=== PATIENT | male | born 1960 | race African-American/Black ===

== ENCOUNTER 2023-12-08 13:00 | Outpatient (AMB) | payer MEDICAID, SELFPAY ==
--- NOTE | 2023-12-08 13:10 | MHC.OFFWIV ---
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 Intake Note: pt is here today for fell lower back pain started 12/06 Patient Tobacco Use Status: Never used Tobacco Allergies No Known Allergies Allergy (Verified 12/08/23 13:21) Do you need a note to return to daycare/school/sports/work: No HPI HPI Comments History of Present Illness Details Patient is a 63yo M who presents with L ankle and back pain post fall Fell on ice outside eatery No HT or LOC Occured on 12/06 States 05/08 lower back pain and L ankle pain since Pain in back is midline lower with radiation to Left lower and L gluteal region No radiation down leg No urine or bowel incontinence No abdominal pain, CP or SOB Has been taking ibuprofen and aleve today which helped He has hx of L ankle surgery and has had pain with ambulation Denies hardware in L ankle post surgery PFSH Social History Patient Tobacco Use Status: Never used Tobacco Review of Systems Const Denies fatigue, Denies headache(s) and Denies weakness ENT Denies dizziness and Denies headache(s) Card Denies chest pain, Denies syncope and Denies dyspnea Resp Denies cough and Denies dyspnea GI Denies abdominal pain, Denies constipation, Denies diarrhea and Denies other (denies incontinence) Denies difficulty urinating and Denies urinary incontinence Musc Reports abnormal gait, Reports back pain, Reports arthralgias and Denies tingling Skin/Breast Denies erythema and Denies rash Neuro Reports abnormal gait, Denies dizziness, Denies syncope, Denies headache(s), Denies focal weakness, Denies tingling, Denies paresthesias and Denies weakness Endo Denies fatigue Physical Exam Vital Signs: Last Vital Signs Temp 98.0 F 12/08/23 13:18 Pulse 82 12/08/23 13:18 BP 100/70 12/08/23 13:18 Pulse Ox 98 12/08/23 13:18 Oxygen Delivery Method Room Air 12/08/23 13:18 BMI result Body Mass Index 18.1 General: Non-toxic, NAD. Speaking full sentences. Skin: Warm dry throughout No extremity swelling No back ecchymosis or rash Respiratory: CTA bilaterally. No wheezes, rales or rhonchi Cardiac: RRR. No murmur MSK: No midline cervical or thoracic tenderness. + tenderness to midline lumbar and L lumbar paravertebral muscles. Negative bilateral SLR. Minimal tenderness to palpation L ankle medial aspect inferior to medial malleoli. Full ROM digits L foot. No L knee pain. Neurology: A/O x 3. No aphasia or facial droop. Psych: Good mood and affect Assessment & Plan Assessment & Plan (1) Fall: Code(s): W19.XXXA - Unspecified fall, initial encounter Qualifiers: Encounter type: initial encounter Qualified Code(s): W19.XXXA - Unspecified fall, initial encounter Plan: Patient seen and evaluated. Xray lumbar and L ankle ordered I viewed both as negative but the final result is pending. Muscle relaxant to pharmacy for patient; lethargy. No alcohol or driving under influence. Warm compress back. avoid heavy lifting Will be obtained around 3 PM due to no senior technical project manager available at this time. F/U with PCP no matter final xray result Patient gave verbal understanding and had no additional questions or concerns at time of discharge All questions answered Orders: Orders XR lumbar spine 2-3V Today W19.XXXA - Unspecified fall, initial encounter XR ankle LT min 3V Today W19.XXXA - Unspecified fall, initial encounter Medications: New methocarbamol 750 mg PO TID PRN 14 tabs 0RF muscle spasm Coding Level of Care Code Est Pt Level 3 (33565) Diagnoses Fall, initial encounter W19.XXXA Encounter type: initial encounter
[2023-12-08 13:18] VITALS: BP 100/70; PULSE 82; TEMP 36.7; O2SAT 98; BMI 18.1
== END 2023-12-08 13:46 | disposition home or self-care (01) ==
PROVIDERS: Visit Provider Physician Assistant
DX: M25.572 Pain in left ankle and joints of left foot (principal); M54.50 Low back pain, unspecified; W19.XXXA Unspecified fall, initial encounter
CPT/HCPCS: 99213

== ENCOUNTER 2023-12-08 15:14 | Outpatient (REF) | payer MEDICAID, SELFPAY ==
--- NOTE | ~2023-12-08 | XR_ITS ---
EXAMINATION: XR ANKLE, LEFT CLINICAL INFORMATION: Fall COMPARISON: None available. TECHNIQUE: AP, lateral, and mortise views of the left ankle. FINDINGS: Radiodense line through the body of the clavicle concerning for impaction fracture. Ankle mortise is preserved. Talar dome is intact. Medial and lateral malleoli are normal. XR/XR ankle LT min 3V IMPRESSION: * Radiodense line through the body of the clavicle concerning for impaction fracture. * This could be evaluated further with CT scan if clinically indicated.
--- NOTE | ~2023-12-08 | XR_ITS ---
EXAMINATION: XR LUMBAR SPINE CLINICAL INFORMATION: Reason for Exam W19.XXXA - Unspecified fall, initial encounter COMPARISON: None TECHNIQUE: Frontal lateral and coned-down L5-S1 frontal lateral, total of 3 views FINDINGS: Five [id number] lumbar vertebrae were identified maintaining normal height and alignments. Narrowing of intervertebral disc spaces suggest underlying degenerative disc disease. Incidental finding was made of excess amount of stool in the colon suggests possible constipation. Paravertebral soft tissues are unremarkable. There are radiolucencies, most likely superimposed bowel gas.. No radiographic evidence of osteolytic or osteoblastic lesions. XR/XR lumbar spine 2-3V IMPRESSION: * No fracture. * Narrowing of intervertebral disc spaces suggest underlying degenerative disc disease. Excess amount of stool in the colon suggests possible constipation.
== END 2023-12-08 15:15 | disposition home or self-care (01) ==
LOC: HO.HMGCX 15:14
PROVIDERS: Visit Provider Physician Assistant
DX: Z91.81 History of falling (principal)
CPT/HCPCS: 72100; 73610

== ENCOUNTER 2023-12-15 15:29 | Outpatient (AMB) | payer MEDICAID, SELFPAY ==
[2023-12-15 16:10] VITALS: BP 102/70; PULSE 72; TEMP 36.6; O2SAT 98; BMI 18.1
--- NOTE | 2023-12-15 16:10 | AM.OFFWIN_ITS ---
Intake Vital Signs 12/15/23 16:10 Height 5 ft 8 in Weight 119 lb BMI 18.1 BP 102/70 Blood Pressure Location Rt brachial Position Sitting Pulse 72 Pulse Source Pulse Oximeter Temp 97.8 F Temp Source Oral Pulse Oximetry (%) 98 Oxygen Delivery Method Room Air Intake Visit Reasons: EP lower back pain [id number] Intake Note: pt is here for c/o low back pain, states he is here for reevaluation regarding his back pain, pt completed medication that was given Patient Tobacco Use Status: Never used Tobacco Allergies No Known Allergies Allergy (Verified 12/08/23 13:21) HPI HPI Comments History of Present Illness Details This is a 63-year-old male with no stated past medical history presenting for re-evaluation of low back pain and left ankle pain that he has had since falling on ice on December 06, 2023. Patient states he was leaving a restaurant when he slipped on ice and fell onto his back. Patient had imaging performed on December 08, 2023 which revealed a normal lumbar series and a questionable calcaneus fracture of the left foot. Patient states he was unaware of this finding but continues to have discomfort in his left medial heel. Patient states his low back pain improved with the Robaxin however has not completely resolved. Patient denies any new injury or trauma following his fall on December 06. [facility] Social History Patient Tobacco Use Status: Never used Tobacco Review of Systems Const All systems reviewed & are unremarkable except as noted in HPI and below ENT Reports no additional complaints Card Reports no additional complaints Resp Reports no additional complaints Musc Reports back pain and Reports other (left posterior ankle pain) Skin/Breast Reports system reviewed and no additional complaints, except as documented Neuro Reports no additional complaints Psych Reports no additional complaints Physical Exam Vital Signs: Last Vital Signs Temp 97.8 F 12/15/23 16:10 Pulse 72 12/15/23 16:10 BP 102/70 12/15/23 16:10 Pulse Ox 98 12/15/23 16:10 Oxygen Delivery Method Room Air 12/15/23 16:10 BMI result Body Mass Index 18.1 Const General: cooperative, healthy appearing and comfortable Nutritional Appearance: underweight Orientation/consciousness: patient oriented x3 Limitations: ambulation with cane General: Yes no CVA tenderness Back/Spine/Pelvis Back: no CVA tenderness Thoracic/Lumbar Spine: thoracic and lumbar spine normal to inspection, thoraco- lumbar ROM normal (pt slow to flex, however ROM intact), straight leg raise negative bilaterally, No kyphosis and paraspinal muscle tenderness bilaterally in the lower lumbar Sacroiliac joints: bilaterally nontender Sacrum: no ecchymosis and no erythema Coccyx: no swelling and no tenderness Skin General skin exam: no rashes or lesions noted Lesions: no lesions Trauma: no lacerations or abrasions Neuro General: patient oriented x3 Extrem Left lower extremity: foot Details: normal to inspection, tenderness Location: of the calcaneus (left medial calcaneus) Details: with squeeze, toes with normal ROM, no edema and vascular exam Details: dorsalis pedis pulse present Psych Appearance: grossly normal Mental Status: mental status grossly normal Insight: Good insight present (Psych) Judgement: Good judgement present (Psych) Results Reviewed Results Reviewed: Imaging from 12.08.2023 is reviewed. Assessment & Plan Assessment & Plan (1) Calcaneus fracture, left: Comment: Following review of plain film imaging, CT imaging may be warranted. Patient will be referred to orthopedics for further evaluation. Code(s): S92.002A - Unspecified fracture of left calcaneus, initial encounter for closed fracture Qualifiers: Encounter type: subsequent encounter Calcaneus location: unspecified portion of calcaneus Fracture type: closed Fracture healing: with routine healing Plan: Orthopedic referral is placed. (2) Lumbar strain: Comment: Patient was initially given Robaxin only. Patient will be discharged with an anti-inflammatory in addition to further treatment with Robaxin. Code(s): S39.012A - Strain of muscle, fascia and tendon of lower back, initial encounter Qualifiers: Encounter type: subsequent encounter Qualified Code(s): S39.012D - Strain of muscle, fascia and tendon of lower back, subsequent encounter Plan: Naprosyn 500 mg b.i.d. times 10 days; Robaxin 750 mg t.i.d. 10 days. Patient is encouraged to follow up with his primary care provider to receive a physical therapy referral if his pain persists. Orders: Referrals Orthopedics Referral S92.002A - Unspecified fracture of left calcaneus, initial encounter for closed fracture Medications: New methocarbamol 750 mg PO Q8H 30 tabs 0RF naproxen (Naprosyn) 500 mg PO BID 20 tabs 0RF Coding Level of Care Code Est Pt Level 3 (56199) Diagnoses Calcaneus fracture, left S92.002A Encounter type: subsequent encounter Calcaneus location: unspecified portion of calcaneus Fracture type: closed Fracture healing: with routine healing Strain of lumbar region, subsequent encounter S39.012D Encounter type: subsequent encounter Time Spent (min) 35
== END 2023-12-15 17:37 | disposition home or self-care (01) ==
PROVIDERS: Visit Provider Physician Assistant
DX: S92.002A Unspecified fracture of left calcaneus, initial encounter for closed fracture (principal); S39.012D Strain of muscle, fascia and tendon of lower back, subsequent encounter
CPT/HCPCS: 99213

== ENCOUNTER 2023-12-20 08:21 | Outpatient (REF) | payer MEDICAID, SELFPAY ==
--- NOTE | ~2023-12-20 | XR_ITS ---
EXAMINATION: XR CALCANEUS, LEFT CLINICAL INFORMATION: Calcaneal fracture COMPARISON: 12/08/2023 TECHNIQUE: Lateral and axial views of the left calcaneus were obtained. FINDINGS: Oblique radiodense line through the body of the calcaneus is slightly less dense than on 12/08/2023 study. Alignment and articulations appear unchanged. XR/XR calcaneus LT min 2V IMPRESSION: No significant change fractured left calcaneus
== END 2023-12-20 08:22 | disposition home or self-care (01) ==
LOC: HO.HOSX 08:21
PROVIDERS: Visit Provider Physician Assistant
DX: S92.002A Unspecified fracture of left calcaneus, initial encounter for closed fracture (principal); W00.0XXA Fall on same level due to ice and snow, initial encounter; Y93.9 Activity, unspecified; Y92.9 Unspecified place or not applicable; Y99.9 Unspecified external cause status; Z79.899 Other long term (current) drug therapy
CPT/HCPCS: 73650; 99212

== ENCOUNTER 2023-12-20 11:17 | Outpatient (AMB) | payer MEDICAID, SELFPAY ==
--- NOTE | 2023-12-20 11:23 | A.OFFVIS_ITS ---
Intake Vital Signs 12/20/23 11:39 Height 5 ft 8 in Weight 119 lb BMI 18.1 Intake Visit Reasons: FC- left calcaneus fx Intake Note: Anamaria a 63 year old male presents today for an ER follow up of left calcaneous fx, DOI 12/06/23. Patient reports when he was leaving a restaurant it was dark when he slipped landing on his lower back. He was seen at [facility] walk in clinic where xrays were taken and referred to orthopedics. Currently he has complaints of bilateral ankle pain near his achilles that radiates up his leg. Hx of left ankle surgery due to ankle injury. Allergies codeine Allergy (Verified 12/20/23 11:34) Unknown duloxetine [From Cymbalta] Allergy (Verified 12/20/23 11:34) Unknown erythromycin base Allergy (Verified 12/20/23 11:34) Unknown gabapentin [From Neurontin] Allergy (Verified 12/20/23 11:34) Unknown Medication List - Last Reconciled 12/20/23 by Dallas Rivers PA-C docusate sodium (Colace) 100 mg PO DAILY methocarbamol 750 mg PO TID PRN methocarbamol 750 mg PO Q8H naproxen (Naprosyn) 500 mg PO BID HPI FC- left calcaneus fx HPI Details 63-year-old male who presents to the off ice today for an ER follow-up of left foot injury s/p leaving a restaurant at dark when he slipped and fell on his lower back on ice, 12/06/23. He was seen at walk-in clinic where x-rays were performed and he was referred to our office. He currently states he has pain at the Achilles of bilateral ankles which radiates up to his leg. He also reports he had swelling which has been improving He has a history of left ankle surgery in the past. 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 No tenderness through the body of calcaneus. No surrounding swelling or ecchymosis noted. NVI. Office Procedures Fracture Care Fracture Billing Code: Fracture Billing Code Results Reviewed Results Reviewed: X-rays of the left calcaneus obtained in the office today show a lucency through the volar aspect of calcaneus. No extension of joint. Assessment & Plan Assessment & Plan (1) Calcaneus fracture, left: Comment: Following review of plain film imaging, CT imaging may be warranted. Patient will be referred to orthopedics for further evaluation. Code(s): S92.002A - Unspecified fracture of left calcaneus, initial encounter for closed fracture Qualifiers: Calcaneus location: unspecified portion of calcaneus Encounter type: subsequent encounter Fracture healing: with routine healing Fracture type: closed Plan He was placed in a short boot and has been weight bearing as tolerated. He has no changes of x-rays which would show any potential of any fracture, so he can weight bear till the CT scan is complete. A CT scan of the left foot has been ordered to further evaluate the lusency of the calcaneus. He will see us back once the scan is complete. Orders: Orders XR calcaneus LT min 2V Today S92.002A - Unspecified fracture of left calcaneus, initial encounter for closed fracture CT foot LT wo IV con Today S92.002A - Unspecified fracture of left calcaneus, initial encounter for closed fracture Patient Instructions: Scribed for Dallas Rivers PA-C, by Ashish Maxwell medical record assistant, on 12/20/2023 at 11:00 AM EST. I, Dallas Rivers PA-C, have personally reviewed and agree with the information entered by the scribe. Coding Level of Care Code New Pt Level 3 (30278) Diagnoses Calcaneus fracture, left S92.002A Calcaneus location: unspecified portion of calcaneus Encounter type: subsequent encounter Fracture healing: with routine healing Fracture type: closed CPT Codes Fracture Care - Fracture Billing Code: Fracture Billing Code ([id number])
[2023-12-20 11:39] VITALS: BMI 18.1
== END 2023-12-20 12:18 | disposition home or self-care (01) ==
PROVIDERS: Visit Provider Physician Assistant
DX: S92.002A Unspecified fracture of left calcaneus, initial encounter for closed fracture (principal); W01.0XXA Fall on same level from slipping, tripping and stumbling without subsequent striking against object, initial encounter
CPT/HCPCS: 99203

== ENCOUNTER 2024-01-05 10:07 | Outpatient (AMB) | payer MEDICAID, SELFPAY ==
--- NOTE | 2024-01-05 10:13 | A.OFFVIS_ITS ---
Intake Vital Signs 01/05/24 10:18 Height 5 ft 8 in Weight 119 lb BMI 18.1 Intake Visit Reasons: Newprob-Right ankle pain Intake Note: Ekra a 63 year old male presents today for an evaluation of right ankle pain s/p slip and fall on ice when leaving a restaurant, DOI 12/06/23. Patient reports being seen for his left ankle however his right ankle has been causing him pain as well. Increased pain with extension of foot, states shooting pain starting at his achilles and radiates up his calf. Numbness with prolong standing. He feels at times his pain becomes unbearable. Allergies codeine Allergy (Verified 01/05/24 10:18) Unknown duloxetine [From Cymbalta] Allergy (Verified 01/05/24 10:18) Unknown erythromycin base Allergy (Verified 01/05/24 10:18) Unknown gabapentin [From Neurontin] Allergy (Verified 01/05/24 10:18) Unknown HPI Newprob-Right ankle pain HPI Details 63-year-old male who presents to the off ice today for evaluation of right ankle pain s/p slipping on ice when leaving a restaurant, 12/06/23. He states he has pain in his right ankle as well as left ankle which radiates from her Achilles till her calf. His pain is aggravated with leg extension and reports his pain occasional becomes unbearable. He also c/o numbness in his leg with prolonged standing. 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 No tenderness over the ankle or foot. He does have tenderness which extends from the perineal tendon to his calf. No palpable defect noted. He also has discomfort with plantar flexion and extension to the cap region. NVI. Assessment & Plan Assessment & Plan (1) Peroneal tendinitis, right leg: Code(s): M76.71 - Peroneal tendinitis, right leg Plan We discussed options which include PT, NSAIDs. The patient will proceed with PT and NSAIDs. If symptoms persist, the patient will contact me for further recommendations, otherwise, PRN. Orders: Orders PT Evaluation and Treatment Today M76.71 - Peroneal tendinitis, right leg Patient Instructions: Scribed for Dallas Rivers PA-C, by Ashish Maxwell medical transcription editor, on 01/05/2024 at 10:00 AM MELLISSA. Dallas Ku PA-C, have personally reviewed and agree with the information entered by the scribe. Coding Level of Care Code Est Pt Level 3 (53112) Diagnoses Peroneal tendinitis, right leg M76.71
[2024-01-05 10:18] VITALS: BMI 18.1
== END 2024-01-05 10:35 | disposition home or self-care (01) ==
PROVIDERS: Visit Provider Physician Assistant
DX: M76.71 Peroneal tendinitis, right leg (principal); W00.0XXA Fall on same level due to ice and snow, initial encounter
CPT/HCPCS: 99213

== ENCOUNTER 2024-01-05 10:07 | Outpatient (REF) | payer OTHER, SELFPAY ==
--- NOTE | ~2024-01-05 | XR_ITS ---
EXAMINATION: XR SACROILIAC JOINTS CLINICAL INFORMATION: Unspecified fall, initial encounter COMPARISON: None available. TECHNIQUE: 3 views of the sacroiliac joints FINDINGS: The bones are intact.. No fracture. Alignment is anatomic. Sacroiliac joint spaces are well-maintained without erosions or surrounding sclerosis. XR/XR sacroiliac joint min 3V IMPRESSION: No bony abnormality.
== END 2024-01-05 10:08 | disposition home or self-care (01) ==
LOC: HO.HOSX 10:07
PROVIDERS: Visit Provider Physician Assistant
DX: M76.71 Peroneal tendinitis, right leg (principal); W19.XXXA Unspecified fall, initial encounter
CPT/HCPCS: 72202; 99202; 99212

== ENCOUNTER 2024-01-05 10:36 | Outpatient (AMB) | payer OTHER, SELFPAY ==
--- NOTE | 2024-01-05 10:37 | MHC.OFFVIS ---
Intake Intake Visit Reasons: Newprob-lower back pain Intake Note: Anamaria a 63 year old male presents today for a evaluation for his lower back pain, DOI 12/06/23. Patient reports when he was leaving a restaurant it was dark when he slipped landing on his lower back. He was seen at [facility] walk in clinic. Patient states that his pain is a 6/10 on the pain scale, yet he states that his pain moves down to his right buttock. He was taking some pain medication that the walk in center prescribed him which gave him mild relief. Allergies codeine Allergy (Verified 01/05/24 10:18) Unknown duloxetine [From Cymbalta] Allergy (Verified 01/05/24 10:18) Unknown erythromycin base Allergy (Verified 01/05/24 10:18) Unknown gabapentin [From Neurontin] Allergy (Verified 01/05/24 10:18) Unknown HPI HPI Comments History of Present Illness Details 12/06/23 slipped on ice, landed on concrete on his back and left foot caught under. Left calcaneal fracture, seen by ortho today, on walking boot. Uses cane (old). Lumbar xray no visible fracture on my review. None reported per radiologist. Pain on middle going to left, SI area. Denied hip pain. Denied groin pain. Denies any numbness or weakness lower extremities. 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 Patient was appropriately conversant and oriented. Good historian. MSK: [No] specific abnormalities found on inspection of the spine and all extremities. [No pain with palpation over the lumbar area]. Tender on left SI joint, mildly tender in right SI joint. Lumbar ROM was [full]. [Bilateral hip, knee and ankle ROM WNL]. No ligamentous laxity or crepitance. [No increased effusion]. Straight-leg raising test [negative]. FABERE test [negative]. [Gillet test is negative]. Strength is [5/5 in all muscle groups tested]. [No increased tone noted]. Neurological: Neurologic examination of the upper and lower extremities was nonfocal with intact sensation, muscle stretch reflexes and without focal motor deficits [ ]. Singh?s [negative bilaterally]. Babinski was [down going bilaterally]. Clonus was [negative]. Gait is [non-]antalgic without loss of balance. Patient was [able] to perform heel walk and toe walk. Results Reviewed Results Reviewed: I independently reviewed the results of the following: Lumbar spine x-rays done 12/08/2023 did not show any fracture, disc spaces preserved. Sent back for pelvic/SI x-rays today no visible fractures on my review, SI joints are patent. Await final reading. I reviewed records from the following: Ortho PCP Assessment & Plan Assessment & Plan (1) Fall: Code(s): W19.XXXA - Unspecified fall, initial encounter Qualifiers: Encounter type: initial encounter Qualified Code(s): W19.XXXA - Unspecified fall, initial encounter Plan Patient's slipped on ice, without sustaining any lumbar fracture as seen on x-ray, presenting with SI joint pain. No neurologic findings on exam. We did send patient back for pelvic x-rays to be sure, await final reading. Recommend physical therapy. Referral has been placed by ortho. Assessment and plan discussed with patient, and patient was agreeable. All questions were answered thoroughly. Follow up 4-6 weeks. Afshan Borjas MD, JESS Board Certified, [place] [employer] and Rehabilitation (ABPMR) Board Certified, [place] [employer] Electro[employer] (ABEM) Coding Level of Care Code New Pt Level 4 (47545) Diagnoses Fall, initial encounter W19.XXXA Encounter type: initial encounter
== END 2024-01-05 11:39 | disposition home or self-care (01) ==
LOC: HO.HOS 10:36
PROVIDERS: Visit Provider Physical Medicine & Rehabilitation
DX: M54.50 Low back pain, unspecified (principal); W19.XXXA Unspecified fall, initial encounter
CPT/HCPCS: 99204

== ENCOUNTER 2024-01-24 07:42 | Outpatient (REF) | payer OTHER, SELFPAY ==
--- NOTE | ~2024-01-24 | CT_ITS ---
EXAMINATION: CT of the left foot without contrast INDICATION: Reason for Exam S92.002A - Unspecified fracture of left calcaneus, initial encounter for... Unspecified fracture of the left calcaneus COMPARISON: 12/20/2023 12/08/2023 TECHNIQUE: Multidetector volumetric imaging was obtained through the left foot without contrast material. Multiplanar reformatted images in coronal and sagittal orientations were submitted. This CT examination was performed using dose optimization techniques as appropriate, variously including the following: *Automated exposure control *Adjustment of mA and/or kV according to patient size (this includes techniques or standardized protocols for targeted exams where dose is matched to indication/reason for exam; i.e. 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 Tracks from 2 prior screws are present across the joint. There is solid osseous bridging across the calcaneal osteotomy site with 2 residual screw tracks. No acute osseous findings. Talocrural and subtalar joints appear well-preserved. Aside from the fused first TMT joint, the joints of the midfoot appear well-preserved. No erosions. Mild osteoarthritis at the metatarso-sesamoidal articulations of the first MTP joint. MTP and interphalangeal joints are otherwise unremarkable. No joint effusions. Intrinsic foot musculature is unremarkable. No appreciable tendon tears. Apparent thickening of the central band of the plantar fascia in the midfoot may be due to subcutaneous edema in this region. Plantar fibromatosis cannot be excluded. Plantar fascia is otherwise unremarkable. CT/CT foot LT wo IV con IMPRESSION: 1. Solid osseous bridging at the calcaneal osteotomy site. The healed margin of the osteotomy site likely corresponds to the suspected fracture on prior radiograph. No calcaneal fractures are identified. 2. Solid osseous fusion at the first TMT joint. 3. Minimal osteoarthritis at the first MTP joint.
== END 2024-01-24 07:43 | disposition home or self-care (01) ==
LOC: HO.CT 07:42
PROVIDERS: PCP Nurse Practitioner Primary Care; Visit Provider Physician Assistant
DX: S92.002A Unspecified fracture of left calcaneus, initial encounter for closed fracture (principal)
CPT/HCPCS: 73700

== ENCOUNTER 2024-01-24 13:00 | Outpatient (RCR) | payer OTHER, SELFPAY ==
--- NOTE | 2024-01-07 12:47 | MHC.PT.EP ---
[facility] [place] Office [place] Office [place] Office [address] [phone] F: [phone] F: [phone] F: [phone] F: [phone] Physical Therapy Plan of Care Date of Evaluation: 01/07/24 Date of Surgery: Diagnosis: Peroneal Tendinitis, Right Leg Assessment: Patient is a 63 year old R handed male who presents with s/s consistent with R peroneal tendinitis, R ankle pain. 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 Patient past medical history is unremarkable. Current impairments include pain, ROM, strength, activity tolerance and functional mobility. Functional limitations include decreased ability to walk, stand, squat, negotiate stairs, and perform standing or weight bearing activities. Patient is motivated with good rehab potential. Skilled PT will address impairments and functional limitations in order to achieve goals. Frequency and Duration: The patient will be seen 2x/week for 5 weeks Short Term Goals: I with HEP - 2 weeks AROM full and pain free - 3 weeks TTP absent - 3 weeks [facility] Goals: SLB 30 seconds and pain free - 5 weeks LEFS 56/80 - 5 weeks Return to PLOF - 5 weeks Treatment Plan: Modalities to reduce pain, spasms and effusion. Manual therapy to restore motion and function. Therapeutic exercise to improve strength and flexibility. Neuromuscular re-education for posture and balance. Therapeutic activities to return to functional activities of daily living. Electronically signed by: Ced Paulino, PT Please sign and return to therapist. Thank you for your referral.
--- NOTE | 2024-08-31 07:56 | MHC.PT.DC ---
[facility] [place] Office [place] Office [address] Radha Mojica [address] [phone] F: [phone] F: [phone] F: [phone] F: [phone] Physical Therapy Discharge Report Diagnosis: Peroneal Tendinitis, Right Leg Date of Surgery: Date of Evaluation: 01/07/24 Date of Discharge: 03/04/24 Treatments to Date: 4 Cancellations to Date: No Shows to Date: Discharge Status: Patient Elected to Stop Discharge Summary: 01/24/24: Pt came in with an x-ray and note that says to continue PT for SIJ. I educated him that our facility only works on one body part at a time and he needs to finish out his PT for his RLE to start. Pain is located throughout the R gastroc. He is unsure when he returns to ortho. Continued POC. He has one more appointment scheduled this week with me however I educated him that he should make another appointment with evaluating therapist to talk about POC however he is leaving the country for a month, maybe 2 months. I told him in that case his chart will be DC'd and he can resume PT with a new evaluation when he returns if he wishes. 01/12/24: pt progressing well with skilled PT. reduced s/s. tolerating band progression well. 01/10/24: progressed ROM and flex. no adverse reacitons. update HeP NV Patient is a 63 year old R handed male who presents with s/s consistent with R peroneal tendinitis, R ankle pain. 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 Patient past medical history is unremarkable. Current impairments include pain, ROM, strength, activity tolerance and functional mobility. Functional limitations include decreased ability to walk, stand, squat, negotiate stairs, and perform standing or weight bearing activities. Patient is motivated with good rehab potential. Skilled PT will address impairments and functional limitations in order to achieve goals. Electronically signed by: Ced Paulino, PT Please sign and return to therapist. Thank you for your referral.
== END 2024-08-31 07:56 | disposition home or self-care (01) ==
LOC: HO.PTCHIC 13:00
PROVIDERS: PCP Nurse Practitioner Primary Care; Visit Provider Physician Assistant
DX: M76.71 Peroneal tendinitis, right leg (principal)
CPT/HCPCS: 97110; 97112; 97161

== ENCOUNTER → 2024-01-24 15:41 | Outpatient (AMB) | payer OTHER, SELFPAY ==
--- NOTE | 2024-01-24 15:47 | MHC.PC.OV ---
Vital Signs 01/24/24 15:48 Height 5 ft 8 in Weight 124 lb 4 oz BMI 18.9 BP 126/84 Blood Pressure Location Lt brachial Position Sitting Pulse 84 Pulse Source Pulse Oximeter Pulse Oximetry (%) 99 Oxygen Delivery Method Room Air Intake Visit Reasons: [employer], req a PE Intake Note: Pt is [facility] care Pt had a colon screen in [place] Allergies codeine Allergy (Verified 01/24/24 16:03) Unknown duloxetine [From Cymbalta] Allergy (Verified 01/24/24 16:03) Unknown erythromycin base Allergy (Verified 01/24/24 16:03) Unknown gabapentin [From Neurontin] Allergy (Verified 01/24/24 16:03) Unknown Medication List - Last Reconciled 01/24/24 by AUTUMN Mathias prednisone 20 mg PO DAILY Tobacco use date assessed: 01/24/24 Dental Screening Dental Screen Date: 01/24/24 Did you have a dental visit in the last 12 months?: No Did you have a dental problem in the last 6 months where you did not have access to dental care?: No Was dental information given to patient?: No HPI HPI Comments History of Present Illness Details Patient is a 63-year-old male here to establish care. He has recently seen by physiatry and Ortho for SI joint pain and left ankle pain. He is currently in a left ankle walking boot. He was given a treatment plan of NSAIDs and physical therapy. He is due for his colonoscopy, will refer. Patient states that he has a primary concern of sinus tenderness, nasal discharge, headache. States he has a history of sinus infections and poorly controlled allergies. He was given prednisone 20 mg and fluticasone at a walk-in clinic. Will also prescribe Augmentin. 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 1. Little interest or pleasure in doing things: not at all 2. Feeling down, depressed, or hopeless: not at all 3. Trouble falling or staying asleep, or sleeping too much: not at all 4. Feeling tired or having little energy: not at all 5. Poor appetite or overeating: not at all 6. Feeling bad about yourself - or that you are a failure or have let yourself or your family down: not at all 7. Trouble concentrating on things, such as reading the newspaper or watching television: not at all 8. Moving or speaking so slowly that other people could have noticed. Or the opposite - being so fidgety or restless that you have been moving around a lot more than usual: not at all 9. Thoughts that you would be better off or of hurting yourself in some way: not at all Total score: 0 Depression Screening Interpretation: Negative Depression Screening Done: Yes 75061 - PHQ-9 Billing: Yes Source: Developed by Drs. Kevin Guzman, Naye Kessler, Yoseph Baxter and colleagues, with an educational cholo from [employer]. Thrive Questionnaire Date Thrive assessed: 01/24/24 I am a: Patient What is your living situation today?: I have a steady place to live Within the past 12 months, did the food you bought not last and you didn't have the money to get more?: Never true Within the past 12 months, did you worry whether your food would run out before you got money to buy more?: Never true Do you have trouble paying for medicines?: No Do you have trouble getting transportation to medical appointments?: No Do you have trouble paying your heating and electricity bill?: No Do you have trouble taking care of your child, family member or friend?: No Do you have trouble with day-to-day activities such as bathing, preparing meals, shopping, managing finances, etc.?: No Are you currently unemployed and looking for a job?: No Are you interested in more education?: No THRIVE Score: 0 AUDIT C Alcohol Use Questionnaire (AUDIT-C) 1. How often do you have a drink containing alcohol?: Never Total Score: 0 PATRICIA-7 AMB Questionnaire PATRICIA-7 Date PATRICIA - 7 assessed: 01/24/24 Feeling nervous, anxious, or on edge: 0 = Not at all Not being able to stop or control worryin = Not at all Worrying too much about different things: 0 = Not at all Trouble relaxin = Not at all Being so restless that it is hard to sit still: 0 = Not at all Becoming easily annoyed or irritable: 0 = Not at all Feeling afraid as if something awful might happen: 0 = Not at all Total PATRICIA-7 score (0-4 normal; 5-9 mild; 10-14 moderate; 15-21 severe): 0 Source: Developed by Drs. Kevin Guzman, Naye Kessler, Yoseph Baxter and colleagues, with an educational cholo from [employer]. PATRICIA-7 Assessment Billing PATRICIA-7 Assessment Tool: PATRICIA-7 Assessment 10269 Review of Systems Const Details: Constitutional : No Weight loss, No Fever, No Chills, No Fatigue, No Malaise ENT/Mouth : Admits sinus pain, nasal discharge. Eyes: No Eye Pain, No Swelling, No Redness Cardiovascular : No Chest Pain, No SOB, No Dyspnea on Exertion, No Orthopnea, No Edema, No Palpitations Respiratory : No Cough, No Sputum, No Wheezing Genitourinary : Admits Urinary Frequency. Musculoskeletal : Admits lower back pain. Left ankle pain. Skin : No Skin Lesions, No rash Neuro : No Weakness, Admits numbness with prolonged standing of right foot. No Dizziness, No Headache Psych : No Anxiety/Panic, No Depression All other systems reviewed and are negative Physical exam (Primary Care) Vital Signs: Last Vital Signs Pulse 84 01/24/24 15:48 BP 126/84 01/24/24 15:48 Pulse Ox 99 01/24/24 15:48 Oxygen Delivery Method Room Air 01/24/24 15:48 BMI result Body Mass Index 18.9 Tobacco/Smoking Status: Tobacco use Status Tobacco use date assessed 01/24/24 01/24/24 15:55 Patient Tobacco Use Status Never used Tobacco 01/24/24 15:48 PHQ-9: PHQ-9 Score PHQ-9: Total score 0 01/24/24 16:31 Depression Screening Interpretation: Negative Thrive Assessment: Date of Thrive Assessment Date Thrive assessed 01/24/24 01/24/24 16:03 Const Other: Appearance: Alert.? Oriented X3.? No acute distress.? Head: Normocephalic, atraumatic, Eyes: Pupils equal, round and reactive to light.? Neck: Normal inspection.? Neck supple.? CVS: Normal heart rate and rhythm.? Pulses normal.? Respiratory: No respiratory distress.? Breath sounds normal.? Extremities: No lower extremity edema.? No calf ttp. 5/5 strength to bilateral upper and lower extremities Back: No midline tenderness, no C-spine tenderness, full range of motion, no CVA tenderness bilaterally. SI joint tenderness. No obvious deformity. Neuro: Oriented X 3.? No motor deficit.? No sensory deficit. CN 2-12 intact Assessment and Plan Assessment & Plan (1) Sinusitis: Comment: Will prescribe patient Augmentin, in addition to the prednisone and fluticasone he was already prescribed. Patient has been educated on the side effects of this medication. Code(s): J32.9 - Chronic sinusitis, unspecified Qualifiers: Sinusitis location: other Chronicity: acute Recurrence: not specified as recurrent Qualified Code(s): J01.80 - Other acute sinusitis Plan: Take your medications as prescribed. If you were prescribed antibiotics today, it is important that you take your medication to their entirety, do not skip any doses, do not finish them early. Follow-up with your primary care provider this week. Return to the emergency department with new or worsening symptoms. Such as fevers, chills, chest pain, shortness of breath, nausea, vomiting, dizziness, headache, vision changes, lethargy In case of emergency call 911 (2) Sacroiliac joint dysfunction of both sides: Comment: Patient will be given meloxicam to be taken as directed. He will also be given Salonpas. Will also prescribe cyclobenzaprine to be taken at night p.r.n. Code(s): M53.3 - Sacrococcygeal disorders, not elsewhere classified (3) H/O urinary frequency: Comment: Patient states he has history of urinary frequency, was given oxybutynin the past. Will draw labs to evaluate prostate kidney disease. Will order UA. Will order A1c. Code(s): Z87.898 - Personal history of other specified conditions Plan Patient to follow-up with physical exam in 5 months Orders: Orders Comprehensive Met. Panel Today Z91.89 - Other specified personal risk factors, not elsewhere classified Complete Blood Count Auto Diff Today Z13.0 - Encounter for screening for diseases of the blood and blood-forming organs and certain disorders involving the immune mechanism Vitamin D 25-OH (D2 and D3) Today Z13.21 - Encounter for screening for nutritional disorder TSH reflex Free T4 Today Z13.29 - Encounter for screening for other suspected endocrine disorder Lipid Panel Today Z13.220 - Encounter for screening for lipoid disorders PSA,Total (Free>4and<10) Today Z12.5 - Encounter for screening for malignant neoplasm of prostate UA CC w/rflx Micro + Cult Today Z13.89 - Encounter for screening for other disorder Hemoglobin A1c Today Z13.1 - Encounter for screening for diabetes mellitus Referrals Gastroenterology Referral Z12.11 - Encounter for screening for malignant neoplasm of colon Medications: New cyclobenzaprine 5 mg PO BEDTIME PRN 14 tabs 0RF muscle spasm amoxicillin-pot clavulanate 875-125 mg 1 tab PO Q12H 14 tabs 0RF meloxicam 15 mg PO DAILY 20 tabs 0RF capsaicin 0.025% (Salonpas-Hot) do not leave patch on for more than 8 hrs 1 patch topical BID PRN 10 ea 0RF pain fluticasone propionate 50 mcg/actuation (Allergy Relief (fluticasone)) administer into each nostril 2 sprays intranasal DAILY 16 grams 0RF fluticasone propionate 50 mcg/actuation (Allergy Relief (fluticasone)) administer into each nostril 2 sprays intranasal DAILY 16 grams 3RF Coding Level of Care Code Est Pt Level 3 (45941) Diagnoses Other acute sinusitis, recurrence not specified J01.80 Sinusitis location: other Chronicity: acute Recurrence: not specified as recurrent Sacroiliac joint dysfunction of both sides M53.3 H/O urinary frequency Z87.898 Additional Codes PATRICIA-7 Assessment Billing - PATRICIA-7 Assessment Tool: PATRICIA-7 Assessment 21873 ([id number]) Time Spent (min) 40
[2024-01-24 15:48] VITALS: BP 126/84; PULSE 84; O2SAT 99; BMI 18.9
== END ==
PROVIDERS: Visit Provider Nurse Practitioner Primary Care
DX: J01.80 Other acute sinusitis (principal); M53.3 Sacrococcygeal disorders, not elsewhere classified; Z87.898 Personal history of other specified conditions
CPT/HCPCS: 99214

== ENCOUNTER 2024-01-25 07:12 | Outpatient (REF) | payer OTHER, SELFPAY ==
[2024-01-25 10:17] LABS: MANUAL DIFF FLAG NO
[2024-01-25 10:24] LABS: Appearance Urine Clear; Color Urine Yellow; Glucose Urine UA Negative (Negative); Leukocyte Esterase Urine Negative (Negative); Nitrite Urine Negative (Negative); PH 6.5 (5.0-9.0); Specific Gravity - Urine 1.015 (1.005-1.025); Urine Blood Negative (Negative); Urine Ketones Negative (Negative); Urine Protein Negative (Neg-Trace)
[2024-01-25 10:39] LABS: Basophils Percent Auto 0.4 % (0-2); Eosinophils Absolute Auto 0.1 X10*3/uL (0.0-0.4); Eosinophils Percent Auto 1.5 % (0-4); Hematocrit 39.8 % (42.0-52.0); Hemoglobin 13.7 g/dl (14.0-18.0); Imm Gran Abs Auto 0.01 X10*3/uL (0.00-0.03); Imm Gran Pct Auto 0.2 % (0.0-0.4); Lymphocytes Absolute Auto 1.1 X10*3/uL (1.2-4.9); Lymphocytes Percent Auto 19.5 % (20-40); Mean Corpuscular HGB Conc 34.4 g/dl (31.0-36.0); Mean Platelet Volume 11.2 fL (9.4-12.4); Monocytes Absolute Auto 0.8 X10*3/uL (0.1-1.2); Monocytes Percent Auto 14.4 % (2-11); Neutrophils Absolute Auto 3.5 x10*3/uL (2.0-8.3); Platelet Count 151 X10*3/uL (160-400); Red Blood Count 4.28 X10*6/uL (4.60-5.80); Red Cell Distribution Width 12.7 % (11.0-16.0); White Blood Count 5.5 X10*3/uL (4.8-10.8)
[2024-01-25 11:03] LABS: PSA,Total (Free>4and<10) 1.29 ng/mL (0.00-4.00)
[2024-01-25 11:04] LABS: Alanine Aminotransferase 19 U/L (0-40); Alkaline Phosphatase 67 U/L (39-117); Anion Gap 9 (12-20); Aspartate Amino Transferase 20 U/L (5-37); Bilirubin Total 0.7 mg/dL (0.0-1.0); Blood Urea Nitrogen 16 mg/dL (9-16); Carbon Dioxide 28 mmol/L (22-29); Chloride 108 mmol/L (96-108); Cholesterol 152 mg/dL (<200); Estimated Glomerular Filt Rate > 60; Glucose Random 89 mg/dL (60-115); HDL Cholesterol 48 mg/dL (>40); LDL Cholesterol Calculated 89 mg/dL (<100); Potassium 4.1 mmol/L (3.3-5.1); Sodium 141 mmol/L (135-145); Triglycerides 77 mg/dL (<150)
[2024-01-25 16:30] LABS: Estimated Average Glucose 77 mg/dL; Hemoglobin A1c % 4.3 % (<6.0)
[2024-01-29 15:49] LABS: Vitamin D 25-OH, D2 <4 ng/mL; Vitamin D 25-OH, D3 29 ng/mL; Vitamin D 25-OH, Total 29 ng/mL (30-100)
== END 2024-01-25 07:13 | disposition home or self-care (01) ==
LOC: HO.HMGCLDS 07:12
PROVIDERS: PCP Nurse Practitioner Primary Care; Visit Provider Nurse Practitioner Primary Care
DX: Z13.21 Encounter for screening for nutritional disorder (principal); Z13.29 Encounter for screening for other suspected endocrine disorder; Z13.0 Encounter for screening for diseases of the blood and blood-forming organs and certain disorders involving the immune mechanism; Z13.220 Encounter for screening for lipoid disorders; Z12.5 Encounter for screening for malignant neoplasm of prostate; Z13.89 Encounter for screening for other disorder; Z91.89 Other specified personal risk factors, not elsewhere classified
CPT/HCPCS: 36415; 80053; 80061; 81003; 82306; 83036; 84153; 84443; 85025

== ENCOUNTER 2024-06-16 13:59 | Outpatient (AMB) | payer OTHER, SELFPAY ==
[2024-06-16 14:02] VITALS: BP 119/69; PULSE 69; BMI 17.8
--- NOTE | 2024-06-16 14:02 | MHC.OFFVIS ---
Vital Signs 06/16/24 14:02 Height 5 ft 8 in Weight 116 lb 13.52 oz BMI 17.8 BP 119/69 Blood Pressure Location Lt brachial Position Sitting Pulse 69 Intake Visit Reasons: colonoscopy screening Intake Note: Anamaria presents to in office visit today as a new patient for colonoscopy screening. CC: Patient states that he had a procedure similar to colonoscopy done in [place] but does not remember the name of the procedure. He c/o constipation, gas pain, RUQ abdominal pain for about a year. He reports sometimes having like a sour mouth. Paper Rewinder Required: No Accompanied by: Daughter Allergies codeine Allergy (Verified 08/16/24 09:02) Unknown duloxetine [From Cymbalta] Allergy (Verified 08/16/24 09:02) Unknown erythromycin base Allergy (Verified 08/16/24 09:02) Unknown gabapentin [From Neurontin] Allergy (Verified 08/16/24 09:02) Unknown HPI HPI colonoscopy screening: Details: 64-year-old male here for preprocedural meeting to discuss a screening colonoscopy. He is referred by David Cruz. PMX Sacroiliac dysfunction bilateral Peroneal tendinitis Left calcaneus fracture * SURGICAL HISTORY Ankle surgery Trigger finger releases Varicocele surgery * ALLERGIES Codeine Cymbalta Erythromycin Gabapentin * for[MD] LABS: Laboratory Tests 01/25/24 07:35 WBC 5.5 Hgb 13.7 L Hct 39.8 L MCV 93.0 MCH 32.0 Plt Count 151 L Estimated GFR > 60 Total Bilirubin 0.7 AST 20 ALT 19 Alkaline Phosphatase 67 TSH 0.90 TODAY'S VISIT He is unsure if he had a prior colonoscopy when in the service in [place] - he did have an EGD. He has bowel problems, he will have gas trapping and pain in the right mid abdomen He denies any trouble with anes or sed. but his BP tends to run low. He denies any cardiac or resp problems. No ID problems. There is no known FHX of crc polyps. ROV 6 weeks. 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, Housing: House Patient Tobacco Use Status: Never used Tobacco service: No Current occupational status: employed 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 Cognitive needs: No Hearing needs: No Vision needs: No Review of Systems Const Denies fatigue, Denies fever(s), Denies night sweats, Denies poor appetite and Denies weight loss ENT Reports Normal hearing present, Denies dysphagia, Denies odynophagia, Denies throat swelling and Denies tongue swelling Card Reports no additional complaints Resp Reports no additional complaints GI Details: Denies abdominal pain, Denies melena, Denies bloating, Denies hematochezia, Reports constipation, Denies GI cramping, Denies dysphagia, Denies excessive flatus, Denies early satiety, Denies heartburn, Denies diarrhea, Denies nausea, Denies odynophagia, Denies vomiting and Denies hematemesis Skin/Breast Denies pruritus, Denies lesions, Denies rash and Denies jaundice Neuro Reports Normal hearing present and Denies Abnormal speech present Endo Denies fatigue Aller/Immun Denies throat swelling and Denies tongue swelling Physical Exam Vital Signs: Last Vital Signs Pulse 69 06/16/24 14:02 BP 119/69 06/16/24 14:02 BMI result Body Mass Index 17.8 Const General: cooperative, no acute distress, well developed and well groomed Nutritional Appearance: well nourished and thin Orientation/consciousness: oriented to person, oriented to place and oriented to time Limitations: No language barrier HEENT Head: Yes normocephalic and Yes atraumatic Eyes General: appearance normal, both eyes and all related structures Pupils: Equal, round and reactive pupils present Neck Neck: Yes normal visual inspection and Yes no lymphadenopathy Thyroid: Thyroid normal Resp Effort & Inspection: normal respiratory effort and able to speak in complete sentences Auscultation: clear to auscultation bilaterally Cardio Rate: regular rate Rhythm: regular rhythm Heart sounds: Normal, physiologic split S2 sound present Peripheral pulses: radial pulses present and posterior tibial pulses present GI Inspection: Yes distended (right mid) and No Abdominal panniculus present Palpation (GI): Soft to palpation, nontender, no guarding, not rigid and No hepatosplenomegaly present Percussion: Yes normal to percussion Auscultation: normal bowel sounds Rectal Exam - Male: Yes deferred Skin General skin exam: no rashes or lesions noted, turgor normal, skin not dry, no jaundice, No spider nevi and no striae Rashes: no rashes Nails: normal Neuro General: oriented to person, oriented to place and oriented to time Cranial nerves: Yes Equal, round and reactive pupils present and Yes Normal hearing present Speech: No Abnormal speech present Extrem General: Yes normal to inspection, No clubbing, No cyanosis and No edema Psych Appearance: grossly normal and well kempt Mental Status: mental status grossly normal Speech and movement: Normal speech and movement present Affect: normal affect Thought process: Normal thought process present and not confabulating Thought content: Normal thought content present Insight: Good insight present (Psych) Judgement: Good judgement present (Psych) Assessment & Plan Assessment & Plan (1) Chronic idiopathic constipation: Code(s): K59.04 - Chronic idiopathic constipation Category: Medical (2) Pre-op examination: Code(s): Z01.818 - Encounter for other preprocedural examination Category: Medical Plan He is unsure if he had a prior colonoscopy when in the service in [facility] - he did have an EGD. He has bowel problems, he will have gas trapping and pain in the right mid abdomen He denies any trouble with anes or sed. but his BP tends to run low. He denies any cardiac or resp problems. No ID problems. There is no known FHX of crc polyps. ROV 6 weeks. eval senna and consider simethicone/or creon Orders: Orders Colonoscopy - GI Use Only 06/16/24 Z01.818 - Encounter for other preprocedural examination Medications: New sodium,potassium,mag sulfates 17.5-3.13-1.6 gram (Suprep Bowel Prep Kit) 480 mL orally; FOR COLONOSCOPY PREP 354 mL 0RF sennosides-docusate sodium 8.6-50 mg (Senna Plus) 2 tab-caps (2 x 8.6-50 mg) PO BEDTIME 60 caps 3RF K59.04 - Chronic idiopathic constipation Coding Level of Care Code New Pt Level 3 (10894) Diagnoses Chronic idiopathic constipation K59.04 Pre-op examination Z01.818
== END 2024-06-16 14:49 | disposition home or self-care (01) ==
PROVIDERS: PCP Nurse Practitioner Primary Care; Visit Provider Nurse Practitioner
DX: K59.04 Chronic idiopathic constipation (principal); Z01.818 Encounter for other preprocedural examination
CPT/HCPCS: 99203

== ENCOUNTER → 2024-06-16 13:59 | Outpatient (BNVA) | payer OTHER, SELFPAY | PROVIDERS: PCP Nurse Practitioner Primary Care; Visit Provider Nurse Practitioner | DX: Z01.818 Encounter for other preprocedural examination (principal); K59.04 Chronic idiopathic constipation | CPT/HCPCS: 99202 ==

== ENCOUNTER 2024-06-26 09:09 | Outpatient (AMB) | payer OTHER, SELFPAY ==
--- NOTE | 2024-06-26 09:14 | A.OFFVIS_ITS ---
Intake Visit Reasons: history of urinary frequency Intake Note: Patient is present for history of urinary frequency Urology Medication:none Antibiotic Allergy:erthromycin Blood Thinner:none Biodiesel Production Technician Required: No Allergies codeine Allergy (Verified 06/26/24 09:17) Unknown duloxetine [From Cymbalta] Allergy (Verified 06/26/24 09:17) Unknown erythromycin base Allergy (Verified 06/26/24 09:17) Unknown gabapentin [From Neurontin] Allergy (Verified 06/26/24 09:17) Unknown Medication List - Last Reconciled 06/26/24 by Philip Dahl MD epinephrine 1 mg IM DAILY mirabegron ER (Myrbetriq) 25 mg PO DAILY naproxen 500 mg PO BID sennosides-docusate sodium 8.6-50 mg (Senna Plus) 2 tab-caps (2 x 8.6-50 mg) PO BEDTIME sodium,potassium,mag sulfates 17.5-3.13-1.6 gram (Suprep Bowel Prep Kit) 480 mL orally; FOR COLONOSCOPY PREP tamsulosin (Flomax) 0.4 mg PO BEDTIME HPI Comments Details: 06/26/24--Anamaria is a 64-year-old male who is here for evaluation due to urinary frequency and urgency. 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 The patient states that he he has had right-sided pain and some constipation. He was seen by GI also. He states he had an ultrasound done and was told that on the right side the ureters were dilated. I have discussed further evaluation with ultrasound retroperitoneum. Will empirically trial Myrbetriq 25 mg daily and tamsulosin 0.4 mg at bedtime. 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 Cognitive needs: No Hearing needs: No Vision needs: No Review of Systems Const All systems reviewed & are unremarkable except as noted in HPI and below Reports no additional complaints Eyes Reports no additional complaints ENT Reports no additional complaints Card Reports no additional complaints Resp Reports no additional complaints GI Reports no additional complaints Reports as per HPI Musc Reports no additional complaints Skin/Breast Reports system reviewed and no additional complaints, except as documented Neuro Reports no additional complaints Psych Reports no additional complaints Endo Reports no additional complaints Roberth/Lymph Reports no additional complaints Aller/Immun Reports no additional complaints Physical Exam Const General: healthy appearing, no acute distress and well developed Orientation/consciousness: patient oriented x3 HEENT Head: Yes normocephalic and Yes atraumatic Eyes Conjunctivae: conjunctivae normal Neck Neck: Yes normal visual inspection Chest Chest palpation & inspection: normal inspection of the chest Resp Effort & Inspection: normal respiratory effort Cardio Rate: regular rate GI Inspection: Yes normal to inspection Palpation (GI): Soft to palpation Skin General skin exam: no rashes or lesions noted Neuro General: patient oriented x3 Extrem General: No pedal edema Psych Appearance: grossly normal Affect: normal affect Results AMB Urinalysis, Automated UA Leukoctes 0 Precious/uL Last Edit by RAMSEY Concepcion on 06/26/24 09:31 UA Nitrite Negative Last Edit by RAMSEY Concepcion on 06/26/24 09:31 UA Urobilinogen 0.2 mg/dL Last Edit by RAMSEY Concepcion on 06/26/24 09:3 1 UA Protein 0 mg/dL Last Edit by RAMSEY Concepcion on 06/26/24 09:31 UA pH 6.5 Last Edit by RAMSEY Concepcion on 06/26/24 09:31 UA Blood 0 Onel/uL Last Edit by RAMSEY Concepcion on 06/26/24 09:31 UA Specific Frazer 1.015 Last Edit by RAMSEY Concepcion on 06/26/24 09: 31 UA Ketone Negative Last Edit by RAMSEY Concepcion on 06/26/24 09:31 UA Bilirubin 0 mg/dL Last Edit by RAMSEY Concepcion on 06/26/24 09:31 UA Glucose 0 mg/dL Last Edit by RAMSEY Concepcion on 06/26/24 09:31 Results Reviewed Results Reviewed: Laboratory Last Values Urine pH (Auto) 6.5 06/26/24 09:30 Specific Frazer (Auto) 1.015 06/26/24 09:30 Urine Protein (Auto) 0 mg/dL 06/26/24 09:30 Glucose (UA)(Auto) 0 mg/dL 06/26/24 09:30 Urine Ketones (Auto) Negative 06/26/24 09:30 Urine Blood (Auto) 0 Onel/uL 06/26/24 09:30 Urine Nitrite (Auto) Negative 06/26/24 09:30 Urine Bilirubin (Auto) 0 mg/dL 06/26/24 09:30 Urine Urobilinogen (Auto) 0.2 mg/dL 06/26/24 09:30 Leukocyte Esterase (Auto) 0 Precious/uL 06/26/24 09:30 Assessment & Plan Assessment & Plan (1) Urinary urgency: Code(s): R39.15 - Urgency of urination Category: Medical (2) Nocturia: Code(s): R35.1 - Nocturia Category: Medical (3) Hydronephrosis, right: Code(s): N13.30 - Unspecified hydronephrosis Category: Medical Plan Further evaluation with ultrasound retroperitoneum. Will empirically trial Myrbetriq 25 mg daily and tamsulosin 0.4 mg at bedtime Orders: Orders AMB Urinalysis Automated Today Z13.9 - Encounter for screening, unspecified US retroperitoneal comp Today N13.30 - Unspecified hydronephrosis, R35.1 - N octuria, R39.15 - Urgency of urination Medications: New tamsulosin (Flomax) 0.4 mg PO BEDTIME 90 caps 3RF mirabegron ER (Myrbetriq) 25 mg PO DAILY 90 tabs 3RF Patient Instructions: The patient had an opportunity to ask questions regarding treatment plan. The patient expressed understanding and agreement with the above treatment plan. The patient is aware they should contact our office by phone for worsening of their current condition or the appearance of new symptoms. Compliance is encouraged with any medications and followup testing that is ordered. It is a privilege to be allowed the opportunity to participate in the urologic care of your patient. If you have any questions or concerns regarding treatment for the above conditions please do not hesitate to contact me. The office telephone contact is [phone]. This note is constructed in part using voice recognition software. While every effort has been made to ensure accuracy ice cream freezer helper errors may have been included. Yours sincerely, Philip Dahl MD Coding Level of Care Code New Pt Level 4 (66339) Diagnoses Urinary urgency R39.15 Nocturia R35.1 Hydronephrosis, right N13.30
== END 2024-06-26 10:19 | disposition home or self-care (01) ==
PROVIDERS: PCP Nurse Practitioner Primary Care; Visit Provider Urology
DX: R39.15 Urgency of urination (principal); R35.1 Nocturia; N13.30 Unspecified hydronephrosis; Z13.9 Encounter for screening, unspecified
CPT/HCPCS: 99204

== ENCOUNTER → 2024-06-26 09:09 | Outpatient (BNVA) | payer OTHER, SELFPAY | PROVIDERS: PCP Nurse Practitioner Primary Care; Visit Provider Urology | DX: R39.15 Urgency of urination (principal); R35.1 Nocturia; N13.30 Unspecified hydronephrosis | CPT/HCPCS: 81003; 99202 ==

== ENCOUNTER 2024-06-29 16:11 | Outpatient (AMB) | payer OTHER, SELFPAY ==
[2024-06-29 16:16] VITALS: BP 122/74; PULSE 68; TEMP 36.6; O2SAT 98
--- NOTE | 2024-06-29 16:16 | AM.OFFWIN_ITS ---
Intake Vital Signs 06/29/24 16:16 Height 5 ft 8 in BP 122/74 Blood Pressure Location Lt brachial Position Sitting Pulse 68 Pulse Source Pulse Oximeter Temp 97.9 F Temp Source Temporal Artery Scan Pulse Oximetry (%) 98 Intake Visit Reasons: left pain foot due to hx of planter fas Intake Note: pt is here for left pain due to foot injury Patient Tobacco Use Status: Never used Tobacco Allergies codeine Allergy (Verified 06/29/24 16:17) Unknown duloxetine [From Cymbalta] Allergy (Verified 06/29/24 16:17) Unknown erythromycin base Allergy (Verified 06/29/24 16:17) Unknown gabapentin [From Neurontin] Allergy (Verified 06/29/24 16:17) Unknown Do you need a note to return to daycare/school/sports/work: No HPI HPI Comments History of Present Illness Details 64 y/o male patient who presents to the walk in clinic with c/o right ankle pain s/p slip and fall on ice when leaving a restaurant back on 12/06/23. He also reports pain on his left ankle as well. He prior h/o left calcaneous fx, which was surgically repaired in the past. Reports Increased pain with extension of foot, states shooting pain starting at his Achilles and radiates up his calf. Numbness with prolong standing. He feels at times his pain becomes unbearable. Pt saw Orthopedics who ordered PT. Pt was unable to complete sessions due to needing to travel to [facility] for work. 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 Cognitive needs: No Hearing needs: No Vision needs: No Review of Systems Const All systems reviewed & are unremarkable except as noted in HPI and below Physical Exam Vital Signs: Last Vital Signs Temp 97.9 F 06/29/24 16:16 Pulse 68 06/29/24 16:16 BP 122/74 06/29/24 16:16 Pulse Ox 98 06/29/24 16:16 Const General: comfortable and no acute distress Nutritional Appearance: thin Orientation/consciousness: patient oriented x3 Neuro General: patient oriented x3, gait normal and moves all extremities Extrem Right lower extremity: full ROM and ankle Details: tenderness Location: of the medial malleolus and of the achilles tendon, no edema and normal ROM; no swelling Left lower extremity: full ROM and ankle Details: tenderness Location: of the medial malleolus and of the achilles tendon, no edema and normal ROM; no swelling Psych Speech and movement: Normal speech and movement present Assessment & Plan Assessment & Plan (1) Peroneal tendinitis, right leg: Code(s): M76.71 - Peroneal tendinitis, right leg Plan: Placed a new referral for PT Continue on NSAIDs for pain relief. (2) Calcaneus fracture, left: Code(s): S92.002A - Unspecified fracture of left calcaneus, initial encounter for closed fracture Qualifiers: Encounter type: subsequent encounter Calcaneus location: unspecified portion of calcaneus Fracture type: closed Fracture healing: with routine healing Fracture alignment: nondisplaced Qualified Code(s): S92.002D - Unspecified fracture of left calcaneus, subsequent encounter for fracture with routine healing Plan: Placed a new referral for PT Continue on NSAIDs for pain relief. Plan Placed a new referral for PT Continue on NSAIDs for pain relief. Orders: Orders PT Evaluation and Treatment Today M76.71 - Peroneal tendinitis, right leg, S92.002D - Unspecified fracture of left calcaneus, subsequent encounter for fracture with routine healing Coding Level of Care Code Est Pt Level 3 (02258) Diagnoses Peroneal tendinitis, right leg M76.71 Closed nondisplaced fracture of left calcaneus with routine healing, unspecified portion of calcaneus, subsequent encounter S92.002D Encounter type: subsequent encounter Calcaneus location: unspecified portion of calcaneus Fracture type: closed Fracture healing: with routine healing Fracture alignment: nondisplaced Time Spent (min) 15
== END 2024-06-29 16:56 | disposition home or self-care (01) ==
PROVIDERS: PCP Nurse Practitioner Primary Care; Visit Provider Nurse Practitioner Family
DX: M76.71 Peroneal tendinitis, right leg (principal); S92.002D Unspecified fracture of left calcaneus, subsequent encounter for fracture with routine healing
CPT/HCPCS: 99213

== ENCOUNTER 2024-07-28 14:00 | Outpatient (AMB) | payer OTHER, SELFPAY ==
[2024-07-28 14:04] VITALS: BP 115/71; PULSE 82; BMI 18.5
--- NOTE | 2024-07-28 14:04 | A.OFFVIS_ITS ---
Vital Signs 07/28/24 14:04 Height 5 ft 8 in Weight 121 lb 11.123 oz BMI 18.5 BP 115/71 Blood Pressure Location Lt brachial Position Sitting Pulse 82 Intake Visit Reasons: 6 week follow up Intake Note: Ekra presents to in office follow up of [facility]IC. CC: Patient states that he is doing better from constipation after taking the Senna, but continues to have RUQ abd pain. Acetylene Gas Compressor Required: No Accompanied by: Self / Same As Patient Allergies codeine Allergy (Verified 08/22/24 09:23) Unknown duloxetine [From Cymbalta] Allergy (Verified 08/22/24 09:23) Unknown erythromycin base Allergy (Verified 08/22/24 09:23) Unknown gabapentin [From Neurontin] Allergy (Verified 08/22/24 09:23) Unknown HPI HPI 6 week follow up: Details: He is unsure if he had a prior colonoscopy when in the service in [place] - he did have an EGD. He has bowel problems, he will have gas trapping and pain in the right mid abdomen He denies any trouble with anes or sed. but his BP tends to run low. He denies any cardiac or resp problems. No ID problems. Nury is no known FHX of crc polyps. ROV 6 weeks. eval senna and consider simethicone/or creon Assessment & Plan (1) Chronic idiopathic constipation: Code(s): K59.04 - Chronic idiopathic constipation Category: Medical Orders: Orders Colonoscopy - GI Use Only Today Z01.818 - Encounter for other preprocedural examination Medications: New sodium,potassium,mag sulfates 17.5-3.13-1.6 gram (Suprep Bowel Prep Kit) 480 mL orally; FOR COLONOSCOPY PREP 354 mL 0RF sennosides-docusate sodium 8.6-50 mg (Senna Plus) 2 tab-caps (2 x 8.6-50 mg) PO BEDTIME 60 caps 3RF K59.04 - Chronic idiopathic constipation COLONOSCOPY 10/04/2024 BIOPSY TODAY'S VISIT He is having some relief with the RUQ pain with moving his bowels better with the senna/colace but some discomfort remains. Now I will add simethicone chew to his regimen before we decide on any further therapy. 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, Housing: House Patient Tobacco Use Status: Never used Tobacco service: No Current occupational status: employed 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 Cognitive needs: No Hearing needs: No Vision needs: No Review of Systems Const Denies fatigue, Denies fever(s), Denies night sweats, Denies poor appetite and Denies weight loss ENT Reports Normal hearing present, Denies dental pain, Denies dysphagia, Denies hearing loss, Denies mouth pain, Denies odynophagia, Denies throat swelling, Denies tongue swelling and Reports other (Dentition adequate) Card Reports no additional complaints Resp Reports no additional complaints GI Details: Denies abdominal pain, Denies melena, Reports bloating, Denies hematochezia, Reports constipation, Denies GI cramping, Denies dysphagia, Denies excessive flatus, Denies early satiety, Denies heartburn, Denies diarrhea, Denies nausea, Denies odynophagia, Denies vomiting and Denies hematemesis Skin/Breast Denies pruritus, Denies lesions, Denies rash and Denies jaundice Neuro Reports Normal hearing present and Denies Abnormal speech present Endo Denies fatigue Aller/Immun Denies throat swelling and Denies tongue swelling Physical Exam Vital Signs: Last Vital Signs Pulse 82 07/28/24 14:04 BP 115/71 07/28/24 14:04 BMI result Body Mass Index 18.5 Const General: cooperative, no acute distress, well developed and well groomed Nutritional Appearance: average body habitus and well nourished Orientation/consciousness: oriented to person, oriented to place and oriented to time Limitations: No language barrier HEENT Head: Yes normocephalic and Yes atraumatic Eyes General: appearance normal, both eyes and all related structures Pupils: Equal, round and reactive pupils present Neck Neck: Yes normal visual inspection and Yes no lymphadenopathy Thyroid: Thyroid normal Resp Effort & Inspection: normal respiratory effort and able to speak in complete sentences Auscultation: clear to auscultation bilaterally Cardio Rate: regular rate Rhythm: regular rhythm Heart sounds: Normal, physiologic split S2 sound present Peripheral pulses: radial pulses present and posterior tibial pulses present GI Inspection: No distended and No Abdominal panniculus present Palpation (GI): Soft to palpation, nontender, no guarding, not rigid and No hepatosplenomegaly present Percussion: Yes normal to percussion Auscultation: normal bowel sounds Rectal Exam - Male: Yes deferred Skin General skin exam: no rashes or lesions noted, turgor normal, skin not dry, no jaundice, No spider nevi and no striae Rashes: no rashes Nails: normal Neuro General: oriented to person, oriented to place and oriented to time Cranial nerves: Yes Equal, round and reactive pupils present and Yes Normal hearing present Speech: No Abnormal speech present Extrem General: Yes normal to inspection, No clubbing, No cyanosis and No edema Psych Appearance: grossly normal and well kempt Mental Status: mental status grossly normal Speech and movement: Normal speech and movement present Affect: normal affect Attitude: cooperative Thought process: Normal thought process present and not confabulating Thought content: Normal thought content present Insight: Fair insight present (Psych) Judgement: Fair judgement present (Psych) Assessment & Plan Assessment & Plan (1) Chronic idiopathic constipation: Code(s): K59.04 - Chronic idiopathic constipation Category: Medical Plan He is having some relief with the RUQ pain with moving his bowels better with the senna/colace but some discomfort remains. Now I will add simethicone chew to his regimen before we decide on any further therapy. Keep 09/30 apppt after colonoscopy Medications: New simethicone (Gas Relief (simethicone)) 125 mg PO QID PRN 120 tabs 6RF abdominal distention Coding Level of Care Code Est Pt Level 3 (00537) Diagnoses Chronic idiopathic constipation K59.04
== END 2024-07-28 14:31 | disposition home or self-care (01) ==
PROVIDERS: PCP Nurse Practitioner Primary Care; Visit Provider Nurse Practitioner
DX: K59.04 Chronic idiopathic constipation (principal)
CPT/HCPCS: 99213

== ENCOUNTER → 2024-07-28 14:00 | Outpatient (BNVA) | payer OTHER, SELFPAY | PROVIDERS: PCP Nurse Practitioner Primary Care; Visit Provider Nurse Practitioner | DX: K59.04 Chronic idiopathic constipation (principal) | CPT/HCPCS: 99212 ==

== ENCOUNTER 2024-08-16 09:00 | Outpatient (AMB) | payer OTHER, SELFPAY ==
[2024-08-16 09:02] VITALS: BP 110/70; PULSE 78; O2SAT 98; BMI 17.9
--- NOTE | 2024-08-16 09:02 | MHC.PC.OV ---
Vital Signs 08/16/24 09:02 Height 5 ft 8 in Weight 118 lb BMI 17.9 BP 110/70 Blood Pressure Location Lt brachial Position Sitting Pulse 78 Pulse Source Pulse Oximeter Pulse Oximetry (%) 98 Oxygen Delivery Method Room Air Intake Visit Reasons: Transfer from [facility] Allergies codeine Allergy (Verified 08/16/24 09:02) Unknown duloxetine [From Cymbalta] Allergy (Verified 08/16/24 09:02) Unknown erythromycin base Allergy (Verified 08/16/24 09:02) Unknown gabapentin [From Neurontin] Allergy (Verified 08/16/24 09:02) Unknown Medication List - Last Reconciled 08/16/24 by Ibis Reynoso MD epinephrine 1 mg IM DAILY fluticasone propionate 50 mcg/actuation sprays intranasal mirabegron ER (Myrbetriq) 25 mg PO DAILY naproxen 500 mg PO BID sennosides-docusate sodium 8.6-50 mg (Senna Plus) 2 tab-caps (2 x 8.6-50 mg) PO BEDTIME simethicone (Gas Relief (simethicone)) 125 mg PO QID PRN sodium,potassium,mag sulfates 17.5-3.13-1.6 gram (Suprep Bowel Prep Kit) 480 mL orally; FOR COLONOSCOPY PREP tamsulosin (Flomax) 0.4 mg PO BEDTIME Tobacco use date assessed: 08/16/24 Dental Screening Dental Screen Date: 08/16/24 Did you have a dental visit in the last 12 months?: Yes Did you have a dental problem in the last 6 months where you did not have access to dental care?: No Was dental information given to patient?: Patient has dentist HPI Transfer from [facility] HPI Details Patient presents for physical. He needs a referral for physical therapy for chronic left ankle pain after 3 surgeries the last 1 in 2020 in [place]. Patient is walking with a cane. Patient will have colonoscopy in September. 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 1. Little interest or pleasure in doing things: not at all 2. Feeling down, depressed, or hopeless: not at all 3. Trouble falling or staying asleep, or sleeping too much: not at all 4. Feeling tired or having little energy: not at all 5. Poor appetite or overeating: not at all 6. Feeling bad about yourself - or that you are a failure or have let yourself or your family down: not at all 7. Trouble concentrating on things, such as reading the newspaper or watching television: not at all 8. Moving or speaking so slowly that other people could have noticed. Or the opposite - being so fidgety or restless that you have been moving around a lot more than usual: not at all 9. Thoughts that you would be better off or of hurting yourself in some way: not at all Total score: 0 Depression Screening Interpretation: Negative Depression Screening Done: Yes 01532 - PHQ-9 Billing: Yes Source: Developed by Drs. Kevin Guzman, Naye Kessler, Yoseph Baxter and colleagues, with an educational cholo from [employer]. Thrive Questionnaire Date Thrive assessed: 08/16/24 I am a: Patient What is your living situation today?: I have a steady place to live Within the past 12 months, did the food you bought not last and you didn't have the money to get more?: Never true Within the past 12 months, did you worry whether your food would run out before you got money to buy more?: Never true Do you have trouble paying for medicines?: No Do you have trouble getting transportation to medical appointments?: No Do you have trouble paying your heating and electricity bill?: No Do you have trouble taking care of your child, family member or friend?: No Do you have trouble with day-to-day activities such as bathing, preparing meals, shopping, managing finances, etc.?: No Are you currently unemployed and looking for a job?: No Are you interested in more education?: Yes Please select the resources that you would like help with: None Currently or been in a relationship where the following occur: No concerns reported THRIVE Score: 0 AUDIT C Alcohol Use Questionnaire (AUDIT-C) 1. How often do you have a drink containing alcohol?: Never Total Score: 0 PATRICIA-7 AMB Questionnaire PATRICIA-7 Date PATRICIA - 7 assessed: 08/16/24 Feeling nervous, anxious, or on edge: 0 = Not at all Not being able to stop or control worryin = Not at all Worrying too much about different things: 0 = Not at all Trouble relaxin = Not at all Being so restless that it is hard to sit still: 0 = Not at all Becoming easily annoyed or irritable: 0 = Not at all Feeling afraid as if something awful might happen: 0 = Not at all Total PATRICIA-7 score (0-4 normal; 5-9 mild; 10-14 moderate; 15-21 severe): 0 Source: Developed by Drs. Kevin Guzman, Naye Kessler, Yoseph Baxter and colleagues, with an educational cholo from [employer]. PATRICIA-7 Assessment Billing PATRICIA-7 Assessment Tool: PATRICIA-7 Assessment 65105 Review of Systems Const All systems reviewed & are unremarkable except as noted in HPI and below ENT Reports no additional complaints Card Reports no additional complaints Resp Reports no additional complaints GI Reports no additional complaints Reports no additional complaints Physical exam (Primary Care) Vital Signs: Last Vital Signs Pulse 78 08/16/24 09:02 BP 110/70 08/16/24 09:02 Pulse Ox 98 08/16/24 09:02 Oxygen Delivery Method Room Air 08/16/24 09:02 BMI result Body Mass Index 17.9 Tobacco/Smoking Status: Tobacco use Status Tobacco use date assessed 08/16/24 08/16/24 09:04 Patient Tobacco Use Status Never used Tobacco 08/16/24 09:04 PHQ-9: PHQ-9 Score PHQ-9: Total score 0 08/16/24 09:12 Depression Screening Interpretation: Negative Thrive Assessment: Date of Thrive Assessment Date Thrive assessed 08/16/24 08/16/24 09:17 Currently or been in a relationship where the following occur: No concerns reported Const General: no acute distress HENMT Head: Yes normal to inspection Ears: hearing grossly normal bilaterally Mouth: Normal oral and palatal mucosa present Eyes General: appearance normal, both eyes and all related structures Neck Neck: Yes no lymphadenopathy and Yes supple Resp Effort & Inspection: normal respiratory effort Auscultation: clear to auscultation bilaterally Cardio Rhythm: regular rhythm Heart sounds: S1 normal heart sound present and S2 normal heart sound present GI Inspection: Yes normal to inspection Palpation (GI): Soft to palpation Percussion: Yes normal to percussion Auscultation: normal bowel sounds Assessment and Plan Assessment & Plan (1) Left ankle pain: Comment: s/p 3 surgeries in [place] last 2020 Code(s): M25.572 - Pain in left ankle and joints of left foot Plan: Referred to physical therapy (2) Annual physical exam: Code(s): Z00.00 - Encounter for general adult medical examination without abnormal findings Plan: Well-balanced diet regular physical activity discussed with the patient. He will have a screening colonoscopy in September, return for physical in 1 year with a fasting labs before Orders: Orders Lipid Panel 1 Year Z00.00 - Encounter for general adult medical examination without abnormal findings UA w Microscopic 1 Year Z00.00 - Encounter for general adult medical examination without abnormal findings PT Evaluation and Treatment Today M25.572 - Pain in left ankle and joints of left foot Comprehensive [place]. Panel Fast 1 Year Z00.00 - Encounter for general adult medical examination without abnormal findings Complete Blood Count Auto Diff 1 Year Z00.00 - Encounter for general adult medical examination without abnormal findings Coding Level of Care Code Est Pt Prev Care 40-64y(36717) Diagnoses Left ankle pain M25.572 Annual physical exam Z00.00 Additional Codes PATRICIA-7 Assessment Billing - PATRICIA-7 Assessment Tool: PATRICIA-7 Assessment 84328 ([id number])
== END 2024-08-16 10:07 | disposition home or self-care (01) ==
PROVIDERS: PCP Nurse Practitioner Primary Care; Visit Provider Internal Medicine
DX: M25.572 Pain in left ankle and joints of left foot (principal); Z00.00 Encounter for general adult medical examination without abnormal findings

== ENCOUNTER → 2024-08-16 09:00 | Outpatient (BNVA) | payer OTHER, SELFPAY | PROVIDERS: PCP Nurse Practitioner Primary Care; Visit Provider Internal Medicine | DX: Z00.00 Encounter for general adult medical examination without abnormal findings (principal); M25.572 Pain in left ankle and joints of left foot | CPT/HCPCS: 96127; 99396 ==

== ENCOUNTER 2024-08-22 08:52 | Outpatient (AMB) | payer OTHER, SELFPAY ==
[2024-08-22 09:23] VITALS: BP 112/70; PULSE 68; TEMP 36.6; O2SAT 98; BMI 18.2
--- NOTE | 2024-08-22 09:23 | AM.OFFWIN_ITS ---
Intake Vital Signs 08/22/24 09:23 Height 5 ft 8 in Weight 120 lb BMI 18.2 BP 112/70 Blood Pressure Location Rt brachial Position Sitting Pulse 68 Pulse Source Pulse Oximeter Temp 97.9 F Temp Source Oral Pulse Oximetry (%) 98 Oxygen Delivery Method Room Air Intake Visit Reasons: EP- mouth canker sore Intake Note: pt c/o painful canker sore in mouth. Started a week ago. Painful to eat Patient Tobacco Use Status: Never used Tobacco Allergies codeine Allergy (Verified 08/22/24 09:23) Unknown duloxetine [From Cymbalta] Allergy (Verified 08/22/24 09:23) Unknown erythromycin base Allergy (Verified 08/22/24 09:23) Unknown gabapentin [From Neurontin] Allergy (Verified 08/22/24 09:23) Unknown Do you need a note to return to daycare/school/sports/work: No HPI HPI Comments History of Present Illness Details Patient is a 64-year-old male complaining of a sore on the roof of his mouth that has been there for 1 week. He has been using a benzocaine liquid to try to numb it without much success. He states it is very painful to eat. He states he has never had a sore like this before. He also states he does not currently have a dentist. He is also complaining of tenderness in his lymph nodes in his neck, he denies fevers or night sweats. He states he has been taking Tylenol with no relief. Patient states he does not smoke cigarettes nor does he drink alcohol. 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 Cognitive needs: No Hearing needs: No Vision needs: No Review of Systems Const All systems reviewed & are unremarkable except as noted in HPI and below Physical Exam Vital Signs: Last Vital Signs Temp 97.9 F 08/22/24 09:23 Pulse 68 08/22/24 09:23 BP 112/70 08/22/24 09:23 Pulse Ox 98 08/22/24 09:23 Oxygen Delivery Method Room Air 08/22/24 09:23 BMI result Body Mass Index 18.2 Const General: cooperative, healthy appearing, comfortable and no acute distress Orientation/consciousness: patient oriented x3 Limitations: no limitations HEENT Head: Yes normal to inspection Face and sinus: Yes normal facial exam Mouth: Normal oral and palatal mucosa present, lip normal, tongue normal, oropharynx abnormals (roof of mouth, center, 0.75cm area of raised erythema, small scab &white ) and moist mucous membranes Throat: Yes tonsils normal and Yes uvula midline Eyes General: appearance normal, both eyes and all related structures Neck Neck: Yes normal visual inspection, Yes full ROM and Yes no lymphadenopathy Resp Effort & Inspection: normal respiratory effort and able to speak in complete sentences Skin General skin exam: no rashes or lesions noted Neuro General: patient oriented x3 Assessment & Plan Assessment & Plan (1) Lesion of mouth: Code(s): K13.70 - Unspecified lesions of oral mucosa Plan: Does not appear to be a canker sore, recommended he have a dentist look at it RAYMUNDO to evaluate the need for further workup. Concern for malignancy. Plan see above Coding Level of Care Code Est Pt Level 3 (91766) Diagnoses Lesion of mouth K13.70
== END 2024-08-22 11:35 | disposition home or self-care (01) ==
PROVIDERS: PCP Nurse Practitioner Primary Care; Visit Provider Physician Assistant
DX: K13.70 Unspecified lesions of oral mucosa (principal)

== ENCOUNTER → 2024-08-22 08:52 | Outpatient (BNVA) | payer OTHER, SELFPAY | PROVIDERS: PCP Nurse Practitioner Primary Care | DX: K13.70 Unspecified lesions of oral mucosa (principal) | CPT/HCPCS: 99212 ==

== ENCOUNTER 2024-08-24 12:55 | Outpatient (REF) | payer OTHER, SELFPAY ==
--- NOTE | ~2024-08-24 | US_ITS ---
EXAMINATION: US RETROPERITONEAL COMPLETE (RENAL) CLINICAL INFORMATION: Urgency of urination. Please measure prostate. COMPARISON: None available. TECHNIQUE: Real-time imaging of the kidneys and bladder. FINDINGS: RIGHT KIDNEY: 10.0 x 3.9 x 5.6 cm (SAG x AP x TRV). The kidney is normal in size, contour, and echogenicity. Renal cortical thickness is normal. No calculi or focal parenchymal lesions. No hydronephrosis. LEFT KIDNEY: 10.7 x 4.4 x 4.8 cm (SAG x AP x TRV). The kidney is normal in size, contour, and echogenicity. Renal cortical thickness is normal. No renal calculi. A 20 mm lower pole left renal cyst is present. There is also mild dilatation of the left collecting system in the left proximal ureter is dilated to 11 mm, though the cause and level obstruction is not visualized. BLADDER: Well distended. Bilateral ureteral jets are demonstrated. Prevoid bladder volume is 156 mL. Postvoid bladder volume is 11 mL. Enlarged prostate, measuring approximately 3.7 x 3.6 x 5 cm, corresponding to a volume of approximately 35 mL. US/US retroperitoneal comp IMPRESSION: 1. Mild left hydronephrosis and proximal left hydroureter, the cause and level of which is not visualized. Note that the left ureteral jet is visualized. This may be better assessed by CT urography as clinically warranted. 2. Mildly enlarged prostate gland. Electronically signed by: Ramon Salinas MD 09/06/2024 09:41 AM EDT
== END 2024-08-24 12:56 | disposition home or self-care (01) ==
LOC: HO.HMGCX 12:55
PROVIDERS: PCP Internal Medicine; Visit Provider Urology
DX: R39.15 Urgency of urination (principal); R35.1 Nocturia; N13.30 Unspecified hydronephrosis
CPT/HCPCS: 76770

== ENCOUNTER 2024-09-06 13:06 | Outpatient (AMB) | payer OTHER, SELFPAY ==
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
== END 2024-09-06 13:46 | disposition home or self-care (01) ==
LOC: HO.HUSH 13:06
PROVIDERS: PCP Internal Medicine; Visit Provider Urology
DX: R39.15 Urgency of urination (principal); R35.1 Nocturia
CPT/HCPCS: 99213

== ENCOUNTER → 2024-09-06 13:06 | Outpatient (BNVA) | payer OTHER, SELFPAY | PROVIDERS: PCP Internal Medicine; Visit Provider Urology ==

== ENCOUNTER 2024-10-04 10:58 | Day surgery (SDC) | payer OTHER, SELFPAY ==
--- NOTE | 2024-10-03 13:03 | HO.ANESPROP2 ---
Documented by User: Sarah Marie NP 10/03/24 13:04 HPI - Anesthesia Eval Consult details Narrative: 64yo M for Colonoscopy PMFSH Active Problems Active Problems: All Active Problems Screening PSA (prostate specific antigen) (Acute) Lesion of mouth (Acute) Left ankle pain (Acute) Hydronephrosis, right (Acute) Nocturia (Acute) Urinary urgency (Acute) Chronic idiopathic constipation (Acute) Pre-op examination (Acute) H/O urinary frequency (Acute) Sacroiliac joint dysfunction of both sides (Acute) Peroneal tendinitis, right leg (Acute) Past Medical History Medical History Annual physical exam Sinusitis Lumbar strain Calcaneus fracture, left Fall Sacroiliac joint dysfunction of both sides Surgical History Surgical History H/O sinus surgery History of carpal tunnel surgery History of ankle surgery Social History Social History Household Members Other:: , 1 daughter, 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 Cognitive needs: No Hearing needs: No Vision needs: No Meds Allergies Allergy/AdvReac Type Severity Reaction Status Date / Time codeine Allergy Unknown Verified 10/04/24 12:47 duloxetine [From Cymbalta] Allergy Unknown Verified 10/04/24 12:47 erythromycin base Allergy Unknown Verified 10/04/24 12:47 gabapentin [From Neurontin] Allergy Unknown Verified 10/04/24 12:47 Home Medications ?Medication ?Instructions ?Recorded ?Confirmed ?Last Taken ?Type epinephrine 0.3 mg/0.3 mL 1 mg IM DAILY 06/16/24 10/04/24 Unknown History injection, auto-injector fluticasone propionate 50 spray intranasal 07/28/24 08/16/24 Unknown History mcg/actuation nasal spray,suspension Assessment and Plan Assessment Anesthesia Assessment: Chart Reviewed Documented by User: Audrey Wilson MD 10/04/24 13:43 [facility] Past Medical History Medical History Annual physical exam Sinusitis Lumbar strain Calcaneus fracture, left Fall Sacroiliac joint dysfunction of both sides Surgical History Surgical History H/O sinus surgery History of carpal tunnel surgery History of ankle surgery History of Problems with Anesthesia: No Social History Social History Household Members Other:: , 1 daughter, 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 Cognitive needs: No Hearing needs: No Vision needs: No Meds Allergies Allergy/AdvReac Type Severity Reaction Status Date / Time codeine Allergy Unknown Verified 10/04/24 12:47 duloxetine [From Cymbalta] Allergy Unknown Verified 10/04/24 12:47 erythromycin base Allergy Unknown Verified 10/04/24 12:47 gabapentin [From Neurontin] Allergy Unknown Verified 10/04/24 12:47 Home Medications ?Medication ?Instructions ?Recorded ?Confirmed ?Last Taken ?Type epinephrine 0.3 mg/0.3 mL 1 mg IM DAILY 06/16/24 10/04/24 Unknown History injection, auto-injector fluticasone propionate 50 spray intranasal 07/28/24 08/16/24 Unknown History mcg/actuation nasal spray,suspension Exam Airway Mallampati Class: II TM Dist: >3cm Neck ROM: Full Loose/Missing/Broken Teeth: No Heart: RRR Lungs: CTA Assessment and Plan Assessment Anesthesia Assessment: Anesthesia Plan Discussed Final Anesthetic Review History of Problems with Anesthesia: No NPO: Yes ASA Class: II Final Preanesthetic Review: Meds/Allgs Chart Reviewed, Consent Obtained/Reviewed and Anes Risks/Benef Reviewed Patient Risk: Low Procedure Risk: Low Anesthetic Plan Anesthetic Plan: MAC: Disposition: Standard PACU
[2024-10-04 13:10] VITALS: BP 120/78; PULSE 64; RESP 14; TEMP 36.4; O2SAT 100; BMI 18.7
--- NOTE | 2024-10-04 13:27 | MHC.SHP ---
Pre-Procedural Eval Section A - 24 Hr Update-Section A only Date of Service: 10/04/24 Section B - Complete if H&P > 30 days Chief Complaint: Chronic idiopathic constipation Relevant Family History (Specify if Yes): No Relevant Social History: None Present Medications: see Short Stay Collaborative assessment Medical History: Significant History (Sinusitis Lumbar strain Calcaneus fracture, left Fall Sacroiliac joint dysfunction of both sides) History of Previous Operations: Relevant previous surgery/procedure and date(s) (H/O sinus surgery History of carpal tunnel surgery History of ankle surgery) Allergies: Allergies Allergy/AdvReac Type Severity Reaction Status Date / Time codeine Allergy Unknown Verified 10/04/24 12:47 duloxetine [From Cymbalta] Allergy Unknown Verified 10/04/24 12:47 erythromycin base Allergy Unknown Verified 10/04/24 12:47 gabapentin [From Neurontin] Allergy Unknown Verified 10/04/24 12:47 Review of Systems Sugical H&P ROS: Negative: Constitution, Cardiovascular, Respiratory, Neurological, Psychiatric, Hem-Onc, Allergic/Immunologic, Gastrointestinal, Genitourinary, Musculoskeletal, Integumentary, Endocrine and Eyes/Ears/Nose/Throat Exam Surgical H&P Exam: Normal: HEENT, Normal: Heart, Normal: Lungs, Normal: Extremities, Normal: Abdomen, Normal: Skin and Normal: Neurological Plan Diagnosis/Plan: Unchanged I have reviewed the history and physical and performed a pertinent physical examination on my patient. No changes have occurred unless specified. Time Spent With Patient Time: Total time managing care of this patient today ____ minutes.
[2024-10-04] MEDS: Lactated Ringers 1,000 ML 100 ML IVCONT (13:29)
--- NOTE | 2024-10-04 13:58 | HO.OPN-COLON ---
Colonoscopy Operative Note Operative Note Date of Service: 10/04/24 Narrative: Operative Information Procedure Description: Colonoscopy Indication: screening Anesthesia: MAC COLONOSCOPY Instrument: Olympus variable stiffness pediatric scope 190L Colonoscopy Monitoring: Vital signs and clinical assessment, continuous EKG monitoring, Pulse oximetry, Carbon Dioxide monitoring and blood pressure monitoring were done throughout the procedure. Colon withdrawal time was 10 minutes. Procedure: The patient was placed in the left lateral decubitis position and pre-procedure medications were administered. After a digital rectal examination of the ano-rectum, the video colonoscope was inserted into the rectum and advanced through the colon to the cecum/TI. The colonoscope was slowly withdrawn in a retrograde panoramic fashion and the colon mucosa was carefully examined including a retroflexed view of the rectum. Findings and interventions are described below. Procedure Difficulty: moderate due to looping Findings: Terminal Ileum-not intubated Cecum:normal Right sided retroflexion- normal Ascending Colon: normal Transverse Colon -normal Descending Colon:normal Sigmoid Colon: moderate diverticulosis Rectum: Retroflexion with small internal hemorrhoids seen, grade I Anorectum - normal Intervention: none Colon preparation: Kuna Bowel Preparation Scale Right colon; 1-2 Transverse colon: 2 Left colon; 1-2 (0 = Unprepared colon segment with mucosa not seen due to solid stool that cannot be cleared. 1 = Portion of mucosa of the colon segment seen, but other areas of the colon segment not well seen due to staining, residual stool and/or opaque liquid. 2 = Minor amount of residual staining, small fragments of stool and/or opaque liquid, but mucosa of colon segment seen well. 3 = Entire mucosa of colon segment seen well with no residual staining, small fragments of stool or opaque liquid) Impression and Post Procedure Diagnosis: diverticulosis internal hemorrhoids Plan: High fiber diet leaflet Avoid straining at stool, epsom salts and sitz bath, anusol supps or cream Repeat Colonoscopy in 2-3 years due to some areas of fair prep or earlier if clinically indicated Above findings were reviewed with the patient and relevant handouts were provided if indicated.
[2024-10-04 14:05] VITALS: BP 98/55; PULSE 65; RESP 18; TEMP 36.4; O2SAT 100
[2024-10-04 14:20] VITALS: BP 111/73; PULSE 61; RESP 18; TEMP 36.6; O2SAT 100
== END 2024-10-04 15:13 | disposition home or self-care (01) ==
PROVIDERS: PCP Internal Medicine; Visit Provider Internal Medicine Gastroenterology
PROC: 0DJD8ZZ Inspection of Lower Intestinal Tract, Via Natural or Artificial Opening Endoscopic (ICD-10-PCS; CPT 45378; principal; 2024-10-04 13:00)
DX: K57.30 Diverticulosis of large intestine without perforation or abscess without bleeding (principal); K64.0 First degree hemorrhoids; K56.2 Volvulus; K59.04 Chronic idiopathic constipation
CPT/HCPCS: 45378; J2003; J2704

== ENCOUNTER → 2024-10-04 10:58 | Outpatient (BNV) | payer OTHER, SELFPAY | PROVIDERS: PCP Internal Medicine; Visit Provider Internal Medicine Gastroenterology | DX: Z12.11 Encounter for screening for malignant neoplasm of colon (principal); K64.0 First degree hemorrhoids; K57.30 Diverticulosis of large intestine without perforation or abscess without bleeding | CPT/HCPCS: 45378 ==

== ENCOUNTER 2024-10-18 11:04 | Outpatient (AMB) | payer OTHER, SELFPAY ==
--- NOTE | 2024-10-18 11:06 | AM.OFFWIN_ITS ---
Intake Vital Signs 10/18/24 11:09 Height 5 ft 8 in Weight 126 lb BMI 19.2 BP 110/70 Blood Pressure Location Rt brachial Position Sitting Pulse 70 Pulse Source Pulse Oximeter Temp 97.9 F Temp Source Oral Pulse Oximetry (%) 98 Oxygen Delivery Method Room Air Intake Visit Reasons: EP sore throat, mucus, lt side chest congest/pain Intake Note: Patient here for sore throat,fever, mucus, cough and pectoral pain and hurts to touch it. coold symptoms have been present for 4 days. Patient Tobacco Use Status: Never used Tobacco Allergies codeine Allergy (Verified 10/18/24 11:10) Unknown duloxetine [From Cymbalta] Allergy (Verified 10/18/24 11:10) Unknown erythromycin base Allergy (Verified 10/18/24 11:10) Unknown gabapentin [From Neurontin] Allergy (Verified 10/18/24 11:10) Unknown Do you need a note to return to daycare/school/sports/work: Yes HPI HPI Comments History of Present Illness Details The patient is a 64-year-old male presenting with symptoms of an acute upper respiratory infection and persistent cough accompanied by yellow sputum production. The symptoms began approximately four days ago and are associated with head congestion, for which the patient has been using Fluticasone nasal spray twice daily, with partial relief. The patient reports occasional sinus pressure, particularly in the ethmoid area, and right ear pain. Initially, the patient experienced a low-grade fever that reached around 99?F, which is currently managed with acetaminophen. There are no reported episodes of shortness of breath or wheezing. Additional concerns include musculoskeletal chest pain located on the left side of the chest, exacerbated by palpation and forward bending. The pain started approximately two to three days ago and is considered to be related to the persistent cough. There is no pain on the bone behind the ear, suggesting no mastoiditis. The patient denies any history of asthma or COPD but has a history of recurrent sinus infections. The patient is a non-smoker and does not consume alcohol. 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, Housing: House Are you a primary palliative care nurse practitioner to a significant other at home: No Do you presently have visiting nurse or other home services: No Patient Tobacco Use Status: Never used Tobacco service: No Current occupational status: employed 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 Cognitive needs: No Hearing needs: No Vision needs: No Review of Systems Const All systems reviewed & are unremarkable except as noted in HPI and below Physical Exam Vital Signs: Last Vital Signs Temp 97.9 F 10/18/24 11:09 Pulse 70 10/18/24 11:09 BP 110/70 10/18/24 11:09 Pulse Ox 98 10/18/24 11:09 Oxygen Delivery Method Room Air 10/18/24 11:09 BMI result Body Mass Index 19.2 General: Cooperative, healthy appearing, comfortable and no acute distress Orientation/consciousness: Patient oriented x3 Limitations: No limitations Head: Normal to inspection Ears: Hearing grossly normal bilaterally, external ears normal, right ear p ainful and red, no actual infection seen Nose: Normal external nose present, Normal nares present and No nasal discharge present Face and sinus: Normal facial exam and Sinuses tender, especially in the ethmoid area Mouth: Normal oral and palatal mucosa present and moist mucous membranes Throat: Yes tonsils normal, Yes uvula midline. Posterior oropharynx erythema Eyes: Appearance normal, both eyes and all related structures Neck: Normal visual inspection Respirtory: Clear to auscultation bilaterally. Normal respiratory effort, able to speak in complete sentences, Actively coughing, no respiratory distress, not tachypneic, no tripod positioning and no use of accessory muscles Cardiovascular: Regular rate and rhythm. Normal S1 and S2 Skin: No rashes or lesions noted Neuro: Patient oriented x3 Extremities: Normal to inspection and Yes no clubbing, cyanosis or edema Assessment & Plan Assessment & Plan (1) URI (upper respiratory infection): Code(s): J06.9 - Acute upper respiratory infection, unspecified Qualifiers: URI type: unspecified URI Qualified Code(s): J06.9 - Acute upper respiratory infection, unspecified Plan: 1. Acute Upper Respiratory Infection: Likely viral, COVID-19, influenza, and RSV testing performed. Results to be communicated upon availability. Continue using Flonase and Tylenol cold medicine ensure there was a decongestant in that medication, and use [id number] medications to treat your symptoms. - Prescribe Tessalon perles for cough control, especially at night, to aid in sleep. Instructions provided for follow-up with primary care physician if symptoms persist after initial evaluation and management. (2) Otalgia, right ear: Code(s): H92.01 - Otalgia, right ear Plan: Continue using Flonase, if pain should get worse, he can return to the clinic but it does not look infected at this time. (3) Chest pain: Code(s): R07.9 - Chest pain, unspecified Qualifiers: Chest pain type: intercostal pain Qualified Code(s): R07.82 - Intercostal pain Plan: 3. Musculoskeletal Chest Pain: Educated patient that this is most likely musculoskeletal from coughing but we will get a chest x-ray to be sure there is no pneumonia. If this reproducible and worse with bending forward chest pain continues after he is feeling better from his infection, he should follow-up with his primary care doctor to rule out fluid around the heart. Physical exam showed no JVD and no muffled heart sounds and patient is not hypotensive or tachycardic so very low liklihood of pleural effusion or tamponade Orders: Orders XR chest 2V Today R05.9 - Cough, unspecified Medications: New benzonatate 200 mg PO TID PRN 14 caps 0RF cough Coding Level of Care Code Est Pt Level 4 (25656) Diagnoses Upper respiratory tract infection, unspecified type J06.9 URI type: unspecified URI Otalgia, right ear H92.01 Intercostal pain R07.82 Chest pain type: intercostal pain
[2024-10-18 11:09] VITALS: BP 110/70; PULSE 70; TEMP 36.6; O2SAT 98; BMI 19.2
== END 2024-10-18 12:31 | disposition home or self-care (01) ==
PROVIDERS: PCP Internal Medicine; Visit Provider Physician Assistant
DX: J06.9 Acute upper respiratory infection, unspecified (principal); H92.01 Otalgia, right ear; R07.82 Intercostal pain; J02.9 Acute pharyngitis, unspecified

== ENCOUNTER 2024-10-18 11:04 | Outpatient (REF) | payer OTHER, SELFPAY ==
--- NOTE | ~2024-10-18 | XR_ITS ---
EXAMINATION: XR CHEST CLINICAL INFORMATION: R05.9 - Cough, unspecified COMPARISON: None available. TECHNIQUE: 2 views of the chest were obtained. FINDINGS: The lungs are hyperinflated but clear. There are no pleural effusions. The cardiomediastinal silhouette is normal. XR/XR chest 2V IMPRESSION: Hyperinflation. No acute cardiopulmonary disease. Electronically signed by: Ramon Salinas MD 10/18/2024 12:18 PM [facility]
[2024-10-18 14:08] LABS: Influenza A PCR NEGATIVE (Negative); Influenza B PCR NEGATIVE (Negative); Resp Syncy Virus RNA Qual PCR NEGATIVE (Negative); SARS COV2 PCR INHOUSE NEGATIVE (Negative)
== END 2024-10-18 11:05 | disposition home or self-care (01) ==
LOC: HO.HMGCX 11:04
PROVIDERS: PCP Internal Medicine; Visit Provider Physician Assistant
DX: R05.9 Cough, unspecified (principal); J06.9 Acute upper respiratory infection, unspecified; H92.01 Otalgia, right ear; R07.82 Intercostal pain
CPT/HCPCS: 0241U; 71046; 87880; 99212

== ENCOUNTER 2024-10-20 08:29 | Outpatient (REF) | payer OTHER, SELFPAY ==
--- NOTE | ~2024-10-20 | US_ITS ---
EXAMINATION: US ABDOMEN LIMITED CLINICAL INFORMATION: Right upper quadrant pain. Right upper and lower abdominal pain, check gallbladder liver and kidneys. COMPARISON: Ultrasound retroperitoneum 08/24/2024. TECHNIQUE: Real-time imaging of the right upper quadrant abdominal viscera. FINDINGS: LIVER: Normal. The liver is normal in size. The liver contour is normal. Parenchymal echogenicity is normal. No focal hepatic lesion. There is no intrahepatic biliary duct dilatation seen. GALLBLADDER: Normal. The gallbladder is physiologically distended without evidence of stones, sludge, polyps, wall thickening or pericholecystic fluid. COMMON BILE DUCT: Normal in caliber measuring 0.26 cm in diameter. RIGHT KIDNEY: Normal. No hydronephrosis. No renal calculi or focal parenchymal lesions. The kidney measures 9.9 cm in maximum dimension. LEFT KIDNEY: Simple cyst 1.9 cm. Dilated right ureter uncertain etiology. No hydronephrosis or renal calculi. The kidney measures 10.3 cm in maximum dimension. US/US abdomen limited IMPRESSION: 1. No ultrasound evidence of gallbladder disease or gallstones. 2. Dilated right ureter uncertain etiology. If patient remain symptomatic may consider correlation with follow-up CT scan to assess for possible obstructing stone. Electronically signed by: Walter Gamino MD 11/21/2024 06:09 AM [facility]
== END 2024-10-20 08:30 | disposition home or self-care (01) ==
LOC: HO.HMGCX 08:29
PROVIDERS: PCP Internal Medicine; Visit Provider Internal Medicine Gastroenterology
DX: R10.11 Right upper quadrant pain (principal)
CPT/HCPCS: 76705

== ENCOUNTER 2024-10-31 11:09 | Outpatient (AMB) | payer OTHER, SELFPAY ==
--- NOTE | 2024-10-31 11:32 | MHC.OFFWIV ---
Intake Vital Signs 10/31/24 11:33 Height 5 ft 8 in Weight 128 lb 4 oz BMI 19.5 BP 112/70 Blood Pressure Location Rt brachial Position Sitting Pulse 72 Pulse Source Pulse Oximeter Temp 98.1 F Temp Source Oral Pulse Oximetry (%) 100 Oxygen Delivery Method Room Air Intake Visit Reasons: EP-sinus infection Intake Note: Patient here for cough, chest congestion and yellow thick mucus. Patient Tobacco Use Status: Never used Tobacco Allergies codeine Allergy (Verified 10/31/24 11:35) Unknown duloxetine [From Cymbalta] Allergy (Verified 10/31/24 11:35) Unknown erythromycin base Allergy (Verified 10/31/24 11:35) Unknown gabapentin [From Neurontin] Allergy (Verified 10/31/24 11:35) Unknown Do you need a note to return to daycare/school/sports/work: No HPI HPI Comments History of Present Illness Details History of Present Illness The patient is a 64-year-old male presenting with persistent cough and sinusitis symptoms. He originally visited on October 18 with a diagnosis of a common cold, experiencing a cough that persisted for four days at that time. Since then, the patient reports no significant improvement. He describes a thick yellow nasal discharge that has not resolved. The patient also notes chronic sinus issues and an allergy to dust mites. Previous treatment with Doxycycline and Prednisone was noted, provided by an unidentified healthcare practitioner. The patient's ears were previously assessed, indicating redness and possible infection. He has been using daily nasal rinses as part of his management routine. Physical Exam General: Cooperative, healthy appearing, comfortable and no acute distress Orientation/consciousness: Patient oriented x3 Limitations: No limitations Head: Normal to inspection Ears: Right ear erythema and TM has purulent effusion, Left TM with erythema Nose: Normal external nose present, Normal nares present and Thick yellow nasal discharge present Face and sinus: Normal facial exam and Yes sinuses nontender Mouth: Normal oral and palatal mucosa present and moist mucous membranes Throat: Yes tonsils normal, Yes uvula midline. Posterior oropharynx erythema Eyes: Appearance normal, both eyes and all related structures Neck: Normal visual inspection Respirtory: Clear to auscultation bilaterally. Normal respiratory effort, able to speak in complete sentences, Actively persistently coughing, no respiratory distress, not tachypneic, no tripod positioning and no use of accessory muscles Cardiovascular: Regular rate and rhythm. 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, Housing: House Are you a primary client care coordinator to a significant other at home: No Do you presently have visiting nurse or other home services: No Patient Tobacco Use Status: Never used Tobacco service: No Current occupational status: employed 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 Cognitive needs: No Hearing needs: No Vision needs: No Review of Systems Const All systems reviewed & are unremarkable except as noted in HPI and below Physical Exam Vital Signs: Last Vital Signs Temp 98.1 F 10/31/24 11:33 Pulse 72 10/31/24 11:33 BP 112/70 10/31/24 11:33 Pulse Ox 100 10/31/24 11:33 Oxygen Delivery Method Room Air 10/31/24 11:33 BMI result Body Mass Index 19.5 Office Procedures Nebulizer Treatment Nebulizer Treatment [id number]/[id number] RX initial, or Nebulizer Subsequent Treatment Office Meds ipratropium 0.5 mg-albuterol 3 mg (2.5 mg base)/3 mL nebulization soln Performing Provider: Medina Parker PA-C Performing Location: [facility] Administered by: Medina Parker PA-C on 10/31/24 12:10 Dose Route Admin Location Dispensed Lot Number Expiration Date [facility] Mental Health Social Worker 3 mL inhalation 3 mL [id number] 01/26/26 61912-359-76 [employer] Assessment & Plan Assessment & Plan (1) URI (upper respiratory infection): Code(s): J06.9 - Acute upper respiratory infection, unspecified Qualifiers: URI type: unspecified URI Qualified Code(s): J06.9 - Acute upper respiratory infection, unspecified Plan: 1. Acute Upper Respiratory Infection: - Gave in office Duoneb breathing treatment to alleviate symptoms, sent inhaler to pharmacy with antibiotics and prednisone. 2. Allergic Rhinitis: - Ensure continued use of nasal rinses. 3. Chronic Sinusitis: - Continue antibiotics course as previously initiated. (2) Otitis media: Code(s): H66.90 - Otitis media, unspecified, unspecified ear Qualifiers: Otitis media type: suppurative Chronicity: acute Laterality: right Recurrence: non-recurrent Spontaneous tympanic membrane rupture: without spontaneous rupture Qualified Code(s): H66.001 - Acute suppurative otitis media without spontaneous rupture of ear drum, right ear Plan: Sent antibiotics to pharmacy (3) Sinusitis: Code(s): J32.9 - Chronic sinusitis, unspecified Qualifiers: Sinusitis location: other Chronicity: acute Recurrence: not specified as recurrent Qualified Code(s): J01.80 - Other acute sinusitis Plan: sent Augmentin and prednisone to pharmacy Orders: Orders AMB Nebulizer Treatment Today J06.9 - Acute upper respiratory infection, unspecified Medications: New amoxicillin-pot clavulanate 875-125 mg 1 tab PO Q12H 14 tabs 0RF prednisone 20 mg PO QAM 5 tabs 0RF ipratropium-albuterol 0.5 mg-3 mg(2.5 mg base)/3 mL 3 mL inhalation ONCE 3 mL 0RF coughing J06.9 - Acute upper respiratory infection, unspecified Coding Level of Care Code Est Pt Level 4 (38400) Diagnoses Upper respiratory tract infection, unspecified type J06.9 URI type: unspecified URI Non-recurrent acute suppurative otitis media of right ear without spontaneous rupture of tympanic membrane H66.001 Otitis media type: suppurative Chronicity: acute Laterality: right Recurrence: non-recurrent Spontaneous tympanic membrane rupture: without spontaneous rupture Other acute sinusitis, recurrence not specified J01.80 Sinusitis location: other Chronicity: acute Recurrence: not specified as recurrent CPT Codes Nebulizer Treatment - Nebulizer Treatment, initial or subsequent: [id number]/MDI RX initial, or Nebulizer Subsequent Treatment ([id number])
[2024-10-31 11:33] VITALS: BP 112/70; PULSE 72; TEMP 36.7; O2SAT 100; BMI 19.5
== END 2024-10-31 12:45 | disposition home or self-care (01) ==
PROVIDERS: PCP Internal Medicine; Visit Provider Physician Assistant
DX: J06.9 Acute upper respiratory infection, unspecified (principal); H66.001 Acute suppurative otitis media without spontaneous rupture of ear drum, right ear; J01.80 Other acute sinusitis

== ENCOUNTER → 2024-10-31 11:09 | Outpatient (BNVA) | payer OTHER, SELFPAY | PROVIDERS: PCP Internal Medicine; Visit Provider Physician Assistant | DX: J06.9 Acute upper respiratory infection, unspecified (principal); H66.001 Acute suppurative otitis media without spontaneous rupture of ear drum, right ear; J01.80 Other acute sinusitis | CPT/HCPCS: 94640; 99212 ==

== ENCOUNTER 2024-11-28 11:00 | Outpatient (RCR) | payer OTHER, SELFPAY ==
--- NOTE | 2024-08-16 11:54 | MHC.PT.EP ---
[facility] [place] Office [place] Office [place] Office [address] Radha Mojica [address] [phone] F: [phone] F: [phone] F: [phone] F: [phone] Physical Therapy Plan of Care Date of Evaluation: 08/16/24 Date of Surgery: Diagnosis: peroneal tendonitis R leg Assessment: Patient is a 64 year old R handed male who presents with s/s consistent with peroneal tendonitis R LE, R foot pain. 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 Patient past medical history includes 3 ankle surgeries in [place] with 3 years of PT Current impairments include pain, balance, gait mechanics, ROM, strength, activity tolerance and functional mobility. Functional limitations include decreased ability to stand, walk, negotiate stairs, squat, jog and be active. Patient is motivated with good rehab potential. Skilled PT will address impairments and functional limitations in order to achieve goals. Frequency and Duration: The patient will be seen 2x/week for 8 weeks Short Term Goals: I with HEP - 2 weeks AROM PF 50, DP 5 - 3 weeks AROM inv 25, ev 15 - 3 weeks SLB > 10 seconds without pain - 4 weeks Snf Goals: LE strength 4+/5 grossly - 8 weeks LEFS 40/80 - 8 weeks DF AROM 8 - 6 weeks Able to walk symmetrical gait - 30 minutes with no increased pain - 8 weeks Max pain 2/10 with ADLs - 8 weeks Treatment Plan: Modalities to reduce pain, spasms and effusion. Manual therapy to restore motion and function. Therapeutic exercise to improve strength and flexibility. Neuromuscular re-education for posture and balance. Therapeutic activities to return to functional activities of daily living. Electronically signed by: Ced Paulino, PT Please sign and return to therapist. Thank you for your referral.
--- NOTE | 2025-01-04 11:02 | MHC.PT.EP ---
[facility] [place] [facility] [place] [facility] [place] [facility] [address] Radha Mojica [address] [phone] F: [phone] F: [phone] F: [phone] F: [phone] Physical Therapy Plan of Care Date of Evaluation: 08/16/24 Date of Surgery: Diagnosis: peroneal tendonitis R leg Assessment: Patient is a 64 year old R handed male who presents with s/s consistent with peroneal tendonitis R LE, R foot pain. 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 Patient past medical history includes 3 ankle surgeries in [place] with 3 years of PT Current impairments include pain, balance, gait mechanics, ROM, strength, activity tolerance and functional mobility. Functional limitations include decreased ability to stand, walk, negotiate stairs, squat, jog and be active. Patient is motivated with good rehab potential. Skilled PT will address impairments and functional limitations in order to achieve goals. Frequency and Duration: The patient will be seen 2x/week for 4 weeks Short Term Goals: I with HEP - 2 weeks AROM PF 50, DF 5 - 3 weeks AROM inv 25, ev 15 - 3 weeks SLB > 10 seconds without pain - 4 weeks Skilled Nursing Goals: LE strength 4+/5 grossly - 8 weeks LEFS 40/80 - 8 weeks DF AROM 8 - 6 weeks Able to walk symmetrical gait - 30 minutes with no increased pain - 8 weeks Max pain 2/10 with ADLs - 8 weeks Treatment Plan: Modalities to reduce pain, spasms and effusion. Manual therapy to restore motion and function. Therapeutic exercise to improve strength and flexibility. Neuromuscular re-education for posture and balance. Therapeutic activities to return to functional activities of daily living. Electronically signed by: Ced Paulino, PT Please sign and return to therapist. Thank you for your referral.
--- NOTE | 2025-01-04 11:07 | MHC.PT.DC ---
[facility] [place] [facility] [place] [facility] [place] [facility] [address] Radha Mojica [address] [phone] F: [phone] F: [phone] F: [phone] F: [phone] Physical Therapy Discharge Report Diagnosis: peroneal tendonitis R leg Date of Surgery: Date of Evaluation: 08/16/24 Date of Discharge: 12/05/24 Treatments to Date: 22 Cancellations to Date: No Shows to Date: Discharge Status: Improved Function Independent with HEP Discharge Summary: 11/28; Pt I with HEP. Pt has handouts to cont with program at home. Pt DC today. 11/23; Pt likes KT. Discussed figure 8 brace for support. Pt has 1 visit remaining. 11/21; Pt performs exs with some increase in pain. Pt has 2 remaining visits before DC. 11/16; Pt had pain wiith A ankle exs and started tearing up from pain. Pt pushing himself to get stronger. 11/14; Pt had fatigued with step and needed 2 U.E assist. 11/09; Pt fatigued after exs. No increase in swelling noted after exs. Ended with KT. Pt conts with limitation with D/F.11/06/24: pt progressing well with skilled PT for strength. we will continue to progress here until d/c to HEP. 10/31; Pt reported fatigue after shuttle 3 bands. Pt likes KT. 10/24/24: pt progressing slowly in skilled PT. he has attend PT for over 2 months now and has made modest improvement on ROM, strength, balance (SLB 8 seconds and painful). He is I with HEP. Functional limitations still include most standing/weight bearing activity. Sometime his gait mechanics are near normal while other time he is very antalgic in his pattern secondary to pain. At this time, we will continue 2x/week for 4 more weeks then transition him to an HEP which we discussed today. He is motivated and with good rehab potential so we will pursue continued progress on impairments and functional limitations. We will then transition him to an optimal HEP to continue to pursue progress on his own. 10/19/24: pt progressing slowly. still with antalgic gait that seems ingrained in patient. difficulty changing his mechanics or reducing limp. 10/17; Pt pushes himself. Pt cont with limitation, pain and swelling after exs. Pt has 3 remaining visits. 10/12/24: pt progressing nicely with balance, strength, ROM progression. pain has been stable as has swelling. 10/10; Pt fatigued after exs. Pt conts with limitation and pain. 10/03; Pt conts with limitation with mobility. Pt feels KT and ice help with sxs. 09/29/24: able to resume strengthening without adverse reactions. pt does deal with element of pain but it has been stable and predictable. 09/27/24: held progression due to swelling since last visit. pt notes he is able to manage it. continued with program. 09/22/24: pt progressing with strength though s/s related to pain still persist. we will continue to progress strength and balance as tolerated. 09/13; Pt works through the pain and is motivated to get stronger and more functionable. Pt likes KT. Pt challenged with balance exs. 09/07/24: pt progressing slowly with strength, function, ROM and balance. continue to progress as tolerated. no observable swelling today. 09/04/24: pt seems to limp immediately after every intervention but gait normalizes as he continues gait pattern. ROM, strength and balance seem to be responding nicely. He was able to complete all interventions without complication. 08/28/24: pt with progressing ROM. we will add balance intervention NV. limps after exercise. improved gait out to car. 08/25/24: pt progressing well with skilled PT. added strength intervention. ROM improving. 08/22; Pt has limitation with ROM, weakness, atrophy and reduced push off and heel strike with amb with sc. Patient is a 64 year old R handed male who presents with s/s consistent with peroneal tendonitis R LE, R foot pain. 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 Patient past medical history includes 3 ankle surgeries in [place] with 3 years of PT Current impairments include pain, balance, gait mechanics, ROM, strength, activity tolerance and functional mobility. Functional limitations include decreased ability to stand, walk, negotiate stairs, squat, jog and be active. Patient is motivated with good rehab potential. Skilled PT will address impairments and functional limitations in order to achieve goals. Electronically signed by: Ced Paulino, PT Please sign and return to therapist. Thank you for your referral.
== END 2025-01-04 11:03 | disposition home or self-care (01) ==
LOC: HO.PTCHIC 11:00
PROVIDERS: PCP Internal Medicine; Visit Provider Nurse Practitioner Family
DX: M76.71 Peroneal tendinitis, right leg (principal); S92.002D Unspecified fracture of left calcaneus, subsequent encounter for fracture with routine healing
CPT/HCPCS: 97110; 97112; 97162; 97164

== ENCOUNTER 2024-12-07 12:43 | Outpatient (AMB) | payer OTHER, SELFPAY ==
[2024-12-07 13:09] VITALS: BP 92/50; PULSE 77; TEMP 36.8; O2SAT 99; BMI 19.0
--- NOTE | 2024-12-07 13:09 | MHC.OFFWIV ---
Intake Vital Signs 12/07/24 13:09 Height 5 ft 8 in Weight 125 lb BMI 19.0 BP 92/50 L Blood Pressure Location Lt brachial Position Sitting Pulse 77 Pulse Source Pulse Oximeter Temp 98.2 F Temp Source Oral Pulse Oximetry (%) 99 Oxygen Delivery Method Room Air Intake Visit Reasons: EP ?ear infection not cleared after med Intake Note: Pt is here today c/o bilateral ear pain recurrent Patient Tobacco Use Status: Never used Tobacco Allergies codeine Allergy (Verified 12/07/24 13:21) Unknown duloxetine [From Cymbalta] Allergy (Verified 12/07/24 13:21) Unknown erythromycin base Allergy (Verified 12/07/24 13:21) Unknown gabapentin [From Neurontin] Allergy (Verified 12/07/24 13:21) Unknown HPI HPI Comments History of Present Illness Details History - The patient is a 64-year-old male presenting with persistent ear pain and hearing difficulties following a previous diagnosis of Acute Otitis Media of the right ear on 10/31/24. - Initially treated with Augmentin and Prednisone, which provided temporary relief. - Symptoms subsequently recurred with increased severity and persistent ear pain primarily on the right side x 2 weeks. - The patient experienced a cough starting 2 weeks ago but now has improved, indicating a possible recurrent infection. - Tylenol has been used without reporting significant improvement. Physical Exam General: Cooperative, healthy appearing, comfortable and no acute distress Orientation/consciousness: Patient oriented x3 Limitations: No limitations Head: Normal to inspection Ears: Hearing grossly normal bilaterally, external ears normal. Right TM erythema, loss of landmarks and small purulent effusion Nose: Normal external nose present, Normal nares present and No nasal discharge present Face and sinus: Normal facial exam and Yes sinuses nontender Mouth: Normal oral and palatal mucosa present and moist mucous membranes Throat: Yes tonsils normal, Yes uvula midline. Posterior oropharynx erythema Eyes: Appearance normal, both eyes and all related structures Neck: Normal visual inspection, pain in the lymph nodes Respiratory: Normal respiratory effort, able to speak in complete sentences, no respiratory distress, not tachypneic, no tripod positioning and no use of accessory muscles Skin: No rashes or lesions noted Neuro: Patient oriented x3 Extremities: Normal to inspection and Yes no clubbing, cyanosis or edema COUNT INCLUDES THE [facility] Medical History (Updated 12/04/24 @ 17:43 by Philip Dahl MD) Sinusitis Annual physical exam Lumbar strain Calcaneus fracture, left Fall Sacroiliac joint dysfunction of both sides Surgical History H/O sinus surgery History of carpal tunnel surgery History of ankle surgery Social History Household Members Other:: , 1 daughter, 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, Housing: House Are you a primary landcare facilitator to a significant other at home: No Do you presently have visiting nurse or other home services: No Patient Tobacco Use Status: Never used Tobacco service: No Current occupational status: employed 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 Cognitive needs: No Hearing needs: No Vision needs: No Review of Systems Const All systems reviewed & are unremarkable except as noted in HPI and below Physical Exam Vital Signs: Last Vital Signs Temp 98.2 F 12/07/24 13:09 Pulse 77 12/07/24 13:09 BP 92/50 L 12/07/24 13:09 Pulse Ox 77 L 12/07/24 13:09 Oxygen Delivery Method Room Air 12/07/24 13:09 BMI result Body Mass Index 19.0 Assessment & Plan Assessment & Plan (1) Otitis media: Code(s): H66.90 - Otitis media, unspecified, unspecified ear Qualifiers: Otitis media type: suppurative Chronicity: acute Laterality: right Recurrence: non-recurrent Spontaneous tympanic membrane rupture: without spontaneous rupture Qualified Code(s): H66.001 - Acute suppurative otitis media without spontaneous rupture of ear drum, right ear Plan: To address the recurring Acute Otitis Media, cefdinir 300 mg is prescribed, to be taken twice daily for 7 days as part of a modified antibiotic regimen following the initial course of Augmentin. Additionally, a daily allergy medication is advised to assist in reducing any contributing nasal congestion. Prospective follow-up is suggested if symptoms do not resolve post-treatment. Patient was informed and verbally consented to the use of an ambient scribe for clinic note documentation during this visit Medications: New cefdinir 300 mg PO Q12H 14 caps 0RF Coding Level of Care Code Est Pt Level 3 (48920) Diagnoses Non-recurrent acute suppurative otitis media of right ear without spontaneous rupture of tympanic membrane H66.001 Otitis media type: suppurative Chronicity: acute Laterality: right Recurrence: non-recurrent Spontaneous tympanic membrane rupture: without spontaneous rupture
== END 2024-12-07 13:48 | disposition home or self-care (01) ==
PROVIDERS: PCP Internal Medicine; Visit Provider Physician Assistant
DX: H66.001 Acute suppurative otitis media without spontaneous rupture of ear drum, right ear (principal)

== ENCOUNTER → 2024-12-07 12:43 | Outpatient (BNVA) | payer OTHER, SELFPAY | PROVIDERS: PCP Internal Medicine; Visit Provider Physician Assistant | DX: H66.001 Acute suppurative otitis media without spontaneous rupture of ear drum, right ear (principal) | CPT/HCPCS: 99212 ==

== ENCOUNTER 2024-12-25 08:00 | Outpatient (AMB) | payer OTHER, SELFPAY ==
[2024-12-25 08:10] VITALS: BP 110/66; PULSE 76; TEMP 36.8; O2SAT 97; BMI 19.0
--- NOTE | 2024-12-25 08:10 | AM.OFFWIN_ITS ---
Intake Vital Signs 12/25/24 08:10 Height 5 ft 8 in Weight 125 lb BMI 19.0 BP 110/66 Blood Pressure Location Lt brachial Position Sitting Pulse 76 Pulse Source Pulse Oximeter Temp 98.3 F Temp Source Oral Pulse Oximetry (%) 97 Intake Visit Reasons: EP Sinus congestion, ear pain Intake Note: pt is here for sinus congestion, ear pain Patient Tobacco Use Status: Never used Tobacco Allergies codeine Allergy (Verified 12/25/24 08:11) Unknown duloxetine [From Cymbalta] Allergy (Verified 12/25/24 08:11) Unknown erythromycin base Allergy (Verified 12/25/24 08:11) Unknown gabapentin [From Neurontin] Allergy (Verified 12/25/24 08:11) Unknown Do you need a note to return to daycare/school/sports/work: No HPI HPI Comments History of Present Illness Details 64 y/o male patient who presents to the walk in clinic with c/o Bilateral ear pain and pressure, sinus pressure and throat itching/pain for y ears. Reports that symptoms are on/off. He is currently being managed by an Car Seat Upholsterer in [place] - last seen 2 weeks for an injection. 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, Housing: House Are you a primary caretaker grounds to a significant other at home: No Do you presently have visiting nurse or other home services: No Patient Tobacco Use Status: Never used Tobacco service: No Current occupational status: employed 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 Cognitive needs: No Hearing needs: No Vision needs: No Review of Systems Const All systems reviewed & are unremarkable except as noted in HPI and below Physical Exam Vital Signs: Last Vital Signs Temp 98.3 F 12/25/24 08:10 Pulse 76 12/25/24 08:10 BP 110/66 12/25/24 08:10 Pulse Ox 97 12/25/24 08:10 BMI result Body Mass Index 19.0 Const General: cooperative and no acute distress Nutritional Appearance: thin Orientation/consciousness: patient oriented x3 HEENT Head: Yes normocephalic Ears: external ears normal and TM abnormal with fluid behind the TM bilateral General nose exam: Abnormal mucous membranes and turbinates present boggy and erythematous Face and sinus: Yes sinus tenderness Mouth: moist mucous membranes Throat: Yes uvula midline and Yes postnasal drainage Resp Effort & Inspection: normal respiratory effort and able to speak in complete sentences Auscultation: clear to auscultation bilaterally, no crackles, no rales, no rhonchi and no wheezes Cardio Heart sounds: S1 normal heart sound present and S2 normal heart sound present Neuro General: patient oriented x3 Assessment & Plan Assessment & Plan (1) Allergic rhinitis: Code(s): J30.9 - Allergic rhinitis, unspecified Qualifiers: Allergic rhinitis seasonality: seasonal Allergic rhinitis trigger: unspecified Qualified Code(s): J30.2 - Other seasonal allergic rhinitis Plan: Continue f/u with your Car Seat Upholsterer Pt had Injections for allergy 2 weeks ago. Coding Level of Care Code Est Pt Level 3 (69701) Diagnoses Seasonal allergic rhinitis, unspecified trigger J30.2 Allergic rhinitis seasonality: seasonal Allergic rhinitis trigger: unspecified Time Spent (min) 15
== END 2024-12-25 08:42 | disposition home or self-care (01) ==
PROVIDERS: PCP Internal Medicine; Visit Provider Nurse Practitioner Family
DX: J30.2 Other seasonal allergic rhinitis (principal)

== ENCOUNTER → 2024-12-25 08:00 | Outpatient (BNVA) | payer OTHER, SELFPAY | PROVIDERS: PCP Internal Medicine | DX: J30.2 Other seasonal allergic rhinitis (principal) | CPT/HCPCS: 99212 ==

== ENCOUNTER 2024-12-28 09:51 | Outpatient (AMB) | payer OTHER, SELFPAY ==
--- NOTE | 2024-12-28 09:56 | A.OFFPC_ITS ---
Vital Signs 12/28/24 09:57 Height 5 ft 8 in Weight 122 lb BMI 18.5 BP 108/70 Blood Pressure Location Lt brachial Position Sitting Pulse 92 Pulse Source Pulse Oximeter Temp 98.0 F Temp Source Oral Pulse Oximetry (%) 99 Oxygen Delivery Method Room Air Intake Visit Reasons: Follow up after completing PT/not better Allergies codeine Allergy (Verified 12/28/24 10:00) Unknown duloxetine [From Cymbalta] Allergy (Verified 12/28/24 10:00) Unknown erythromycin base Allergy (Verified 12/28/24 10:00) Unknown gabapentin [From Neurontin] Allergy (Verified 12/28/24 10:00) Unknown Medication List - Last Reconciled 12/28/24 by Ibis Reynoso MD dupilumab (Dupixent) mg subcut epinephrine 1 mg IM DAILY fluticasone propionate 50 mcg/actuation sprays intranasal mirabegron ER (Myrbetriq) 25 mg PO DAILY naproxen 500 mg PO BID sennosides-docusate sodium 8.6-50 mg (Senna Plus) 2 tab-caps (2 x 8.6-50 mg) PO BEDTIME simethicone (Gas Relief (simethicone)) 125 mg PO QID PRN tamsulosin (Flomax) 0.4 mg PO BEDTIME Tobacco use date assessed: 12/28/24 Dental Screening Dental Screen Date: 12/28/24 Did you have a dental visit in the last 12 months?: Yes Did you have a dental problem in the last 6 months where you did not have access to dental care?: No Was dental information given to patient?: Patient has dentist HPI Follow up after completing PT/not better HPI Details Patient presents for the follow-up of chronic left ankle and foot pain and swelling no significant improved after physical therapy. patient would like to be referred to a podiatry. He has chronic pain and swelling of the left ankle and foot after 3 surgeries ([id number]) in [place]. Patient is ambulating with a cane and has been using [id number] arthritis cream and taking naproxen on and off with some relief. 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 1. Little interest or pleasure in doing things: not at all 2. Feeling down, depressed, or hopeless: not at all 3. Trouble falling or staying asleep, or sleeping too much: not at all 4. Feeling tired or having little energy: not at all 5. Poor appetite or overeating: not at all 6. Feeling bad about yourself - or that you are a failure or have let yourself or your family down: not at all 7. Trouble concentrating on things, such as reading the newspaper or watching television: not at all 8. Moving or speaking so slowly that other people could have noticed. Or the opposite - being so fidgety or restless that you have been moving around a lot more than usual: not at all 9. Thoughts that you would be better off or of hurting yourself in some way: not at all Total score: 0 Depression Screening Interpretation: Negative Depression Screening Done: Yes 79043 - PHQ-9 Billing: Yes Source: Developed by Drs. Kevin Guzman, Naye Kessler, Yoseph Baxter and colleagues, with an educational cholo from [employer]. Thrive Questionnaire Date Thrive assessed: 12/28/24 I am a: Patient What is your living situation today?: I have a steady place to live Within the past 12 months, did the food you bought not last and you didn't have the money to get more?: Never true Within the past 12 months, did you worry whether your food would run out before you got money to buy more?: Never true Do you have trouble paying for medicines?: No Do you have trouble getting transportation to medical appointments?: No Do you have trouble paying your heating and electricity bill?: No Do you have trouble taking care of your child, family member or friend?: No Do you have trouble with day-to-day activities such as bathing, preparing meals, shopping, managing finances, etc.?: No Are you currently unemployed and looking for a job?: I choose not to answer this question Are you interested in more education?: I choose not to answer this question Please select the resources that you would like help with: None Currently or been in a relationship where the following occur: No concerns reported THRIVE Score: 0 AUDIT C Alcohol Use Questionnaire (AUDIT-C) 1. How often do you have a drink containing alcohol?: Never 3. How often do you have six or more drinks on one occasion?: Never Total Score: 0 PATRICIA-7 AMB Questionnaire PATRICIA-7 Date PATRICIA - 7 assessed: 12/28/24 Feeling nervous, anxious, or on edge: 0 = Not at all Not being able to stop or control worryin = Not at all Worrying too much about different things: 0 = Not at all Trouble relaxin = Not at all Being so restless that it is hard to sit still: 0 = Not at all Becoming easily annoyed or irritable: 0 = Not at all Feeling afraid as if something awful might happen: 0 = Not at all Total PATRICIA-7 score (0-4 normal; 5-9 mild; 10-14 moderate; 15-21 severe): 0 Source: Developed by Drs. Kevin Guzman, Naye Kessler, Yoseph Baxter and colleagues, with an educational cholo from [employer]. PATRICIA-7 Assessment Billing PATRICIA-7 Assessment Tool: PATRICIA-7 Assessment 40845 Review of Systems Const All systems reviewed & are unremarkable except as noted in HPI and below ENT Reports no additional complaints Card Reports no additional complaints Resp Reports no additional complaints GI Reports no additional complaints Reports no additional complaints Physical exam (Primary Care) Vital Signs: Last Vital Signs Temp 98.0 F 12/28/24 09:57 Pulse 92 12/28/24 09:57 BP 108/70 12/28/24 09:57 Pulse Ox 99 12/28/24 09:57 Oxygen Delivery Method Room Air 12/28/24 09:57 BMI result Body Mass Index 18.5 Tobacco/Smoking Status: Tobacco use Status Tobacco use date assessed 12/28/24 12/28/24 10:05 Patient Tobacco Use Status Never used Tobacco 12/28/24 10:05 e-Cigarette/Vaping Use Never Used 12/28/24 10:05 PHQ-9: PHQ-9 Score PHQ-9: Total score 0 12/28/24 10:05 Depression Screening Interpretation: Negative Thrive Assessment: Date of Thrive Assessment Date Thrive assessed 12/28/24 12/28/24 10:05 Currently or been in a relationship where the following occur: No concerns reported Const General: no acute distress HENMT Head: Yes normal to inspection Throat: Yes posterior oropharynx normal Resp Effort & Inspection: normal respiratory effort Auscultation: clear to auscultation bilaterally Cardio Rhythm: regular rhythm Heart sounds: S1 normal heart sound present and S2 normal heart sound present Extrem Other: There is decreased range of motion and general tenderness left ankle and 1+ no pitting edema of left foot no erythema warmth Coding Level of Care Code Est Pt Level 3 (60766) Diagnoses Left ankle pain M25.572 Additional Codes PATRICIA-7 Assessment Billing - PATRICIA-7 Assessment Tool: PATRICIA-7 Assessment 74467 ([id number]) PHQ-9 - 26885 - PHQ-9 Billing: Yes ([id number]) Assessment & Plan Assessment & Plan (1) Left ankle pain: Comment: s/p 3 surgeries in [place] last 2020 Code(s): M25.572 - Pain in left ankle and joints of left foot Category: Medical Plan: Referred to Podiatry. Patient will continue naproxen and topical pain relief creams. He was made aware that his condition is most likely chronic and unlikely to improved. Patient was advised to continue regular exercises he learned at PT Orders: Referrals Podiatry Referral M25.572 - Pain in left ankle and joints of left foot
[2024-12-28 09:57] VITALS: BP 108/70; PULSE 92; TEMP 36.7; O2SAT 99; BMI 18.5
== END 2024-12-28 10:29 | disposition home or self-care (01) ==
PROVIDERS: PCP Internal Medicine; Visit Provider Internal Medicine
DX: M25.572 Pain in left ankle and joints of left foot (principal)

== ENCOUNTER → 2024-12-28 09:51 | Outpatient (BNVA) | payer OTHER, SELFPAY | PROVIDERS: PCP Internal Medicine; Visit Provider Internal Medicine | DX: M25.572 Pain in left ankle and joints of left foot (principal) | CPT/HCPCS: 96127; 99212 ==

== ENCOUNTER 2025-01-11 11:21 | Outpatient (REF) | payer OTHER, SELFPAY ==
--- NOTE | ~2025-01-11 | CT_ITS ---
EXAMINATION: CT ABDOMEN PELVIS UROGRAPHY WITHOUT THEN WITH IV CONTRAST HISTORY: N13.4 - Hydroureter COMPARISON: Correlation is made with an abdominal ultrasound dated 10/20/2024. TECHNIQUE: CT scan of the abdomen and pelvis was performed before and after the intravenous administration of 100 mL Omnipaque 350. Postcontrast images were obtained in the nephrographic and delayed phases. Coronal and sagittal reformatted images were generated and reviewed. Oral contrast material was not administered per department protocol. This CT exam was performed with one or more of the following dose reduction techniques: automated exposure control, adjustment of the mA and/or kV according to patient size, use of iterative reconstruction technique. DLP: 447 mGy-cm ABDOMEN: LOWER CHEST: The visualized lung bases are clear. There is no pleural effusion. CARDIOVASCULATURE: The heart is normal in size. There is no pericardial effusion. LIVER: The liver is normal in size and contour. There is a 0.9 cm cyst in the left lobe. A smaller cyst is noted in the right lobe. The hepatic and portal veins are patent. GALLBLADDER / BILE DUCTS: The gallbladder is unremarkable. There is no intra or extrahepatic biliary ductal dilatation. SPLEEN: The spleen is normal in size. No focal splenic lesion is identified. PANCREAS: The pancreas is unremarkable in appearance. ADRENAL GLANDS: Within normal limits. KIDNEYS/RETROPERITONEUM: No renal calculi are identified. There is mild dilatation of the collecting systems and proximal ureters, right greater than left. There is mild kinking of the proximal ureters without evidence of obstruction. The mid right ureter is mildly dilated into the pelvis where there is an abrupt changing caliber at the level of the iliac vessels. The mid and distal left ureter is normal in caliber.. There are no ureteral filling defects. There is a 2.0 cm cyst in the interpolar region of the left kidney. LYMPH NODES: No abdominal or pelvic lymphadenopathy. VASCULATURE: The abdominal aorta is normal in caliber. MESENTERY/PERITONEUM: No free fluid. No masses. There is no free intraperitoneal gas. STOMACH: The stomach is collapsed, limiting evaluation. SMALL BOWEL: The small bowel is normal in caliber. COLON: There is a moderate amount of stool throughout the colon. APPENDIX: Normal. URINARY BLADDER/PELVIC ORGANS: The urinary bladder is nondistended, limiting evaluation. The prostate is normal in size. BONES / SOFT TISSUES: No suspicious bony or soft tissue abnormalities. CT/CT urogram IMPRESSION: Mild dilatation of the bilateral renal collecting systems and proximal ureters, likely secondary to kinking proximally. The right ureter is mildly dilated distal to this, with an abrupt change in caliber in the region of the iliac vessels, likely secondary to extrinsic mass effect. No ureteral filling defects are identified. Electronically signed by: Kevin Merida MD 01/11/2025 12:33 PM [facility]
[2025-01-11] MEDS: iohexoL 350 MG/ML 100 ML INFUS..BTL IV (12:01)
[2025-01-12 09:30] LABS: Creatinine POC 0.8 mg/dL (0.5-1.4); GFR POC > 60
== END 2025-01-11 11:22 | disposition home or self-care (01) ==
LOC: HO.CT 11:21
PROVIDERS: PCP Internal Medicine; Visit Provider Urology
DX: N13.4 Hydroureter (principal)
CPT/HCPCS: 74178; 82565; Q9967

== ENCOUNTER → 2025-01-11 11:24 | Outpatient (BNV) | payer OTHER, SELFPAY | PROVIDERS: PCP Internal Medicine; Visit Provider Radiology Diagnostic Radiology | DX: N13.4 Hydroureter (principal) | CPT/HCPCS: 74178 ==

== ENCOUNTER 2025-01-16 10:43 | Outpatient (REF) | payer OTHER, SELFPAY ==
--- NOTE | ~2025-01-16 | XR_ITS ---
CLINICAL HISTORY: R05.9 - Cough, unspecified 2 view chest x-ray Comparison: None Findings: Lungs are clear without acute infiltrates. Right calcified granuloma noted. Probable calcified plaque over mid lungs. No pneumothorax. Heart size normal. No acute bony abnormalities. Impression: No acute processes This document has been electronically signed by: Eduardo Bass MD on 01/16/2025 19:04:03
== END 2025-01-16 10:44 | disposition home or self-care (01) ==
LOC: HO.HMGCX 10:43
PROVIDERS: PCP Internal Medicine; Visit Provider Internal Medicine
DX: R05.9 Cough, unspecified (principal)
CPT/HCPCS: 71046; 99212

== ENCOUNTER 2025-01-16 10:43 | Outpatient (AMB) | payer OTHER, SELFPAY ==
--- NOTE | 2025-01-16 10:44 | A.OFFPC_ITS ---
Vital Signs 01/16/25 10:56 Height 5 ft 8 in Weight 122 lb BMI 18.5 BP 100/66 Blood Pressure Location Lt brachial Position Sitting Respiration 18 Pulse 78 Pulse Source Pulse Oximeter Temp 98.4 F Temp Source Oral Pulse Oximetry (%) 99 Oxygen Delivery Method Room Air Intake Visit Reasons: cough sinus infection Intake Note: Pt is here today for a sick visit. Pt c/o cough, sinus pressure and pain. Pt states that he saw ENT and he was put on antibiotic for 21 days. Pt states that the coughing is not stopping and he tried otc medication for cough but its not helping. Allergies codeine Allergy (Verified 01/16/25 10:45) Unknown duloxetine [From Cymbalta] Allergy (Verified 01/16/25 10:45) Unknown erythromycin base Allergy (Verified 01/16/25 10:45) Unknown gabapentin [From Neurontin] Allergy (Verified 01/16/25 10:45) Unknown Medication List - Last Reconciled 01/16/25 by Ibis Reynoso MD cefuroxime axetil mg PO dupilumab (Dupixent) mg subcut epinephrine 1 mg IM DAILY fluticasone propionate 50 mcg/actuation sprays intranasal mirabegron ER (Myrbetriq) 25 mg PO DAILY naproxen 500 mg PO BID sennosides-docusate sodium 8.6-50 mg (Senna Plus) 2 tab-caps (2 x 8.6-50 mg) PO BEDTIME simethicone (Gas Relief (simethicone)) 125 mg PO QID PRN tamsulosin (Flomax) 0.4 mg PO BEDTIME Tobacco use date assessed: 01/16/25 Dental Screening Dental Screen Date: 12/28/24 HPI cough sinus infection HPI Details Patient presents complaining of persistent cough sinus congestion postnasal drip after completing course of antibiotic for sinusitis. Patient denies pleurisy fever chills sputum production. 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 1. Little interest or pleasure in doing things: not at all 2. Feeling down, depressed, or hopeless: not at all 3. Trouble falling or staying asleep, or sleeping too much: not at all 4. Feeling tired or having little energy: not at all 5. Poor appetite or overeating: not at all 8. Moving or speaking so slowly that other people could have noticed. Or the opposite - being so fidgety or restless that you have been moving around a lot more than usual: not at all Source: Developed by Drs. Kevin Guzman, Naye Kessler, Yoseph Baxter and colleagues, with an educational cholo from [employer]. Thrive Questionnaire Date Thrive assessed: 12/28/24 I am a: Patient What is your living situation today?: I have a steady place to live Within the past 12 months, did the food you bought not last and you didn't have the money to get more?: Never true Within the past 12 months, did you worry whether your food would run out before you got money to buy more?: Never true Do you have trouble paying for medicines?: No Do you have trouble getting transportation to medical appointments?: No Do you have trouble paying your heating and electricity bill?: No Do you have trouble taking care of your child, family member or friend?: No Do you have trouble with day-to-day activities such as bathing, preparing meals, shopping, managing finances, etc.?: No Are you currently unemployed and looking for a job?: I choose not to answer this question Are you interested in more education?: I choose not to answer this question Please select the resources that you would like help with: None Currently or been in a relationship where the following occur: No concerns reported THRIVE Score: 0 PATRICIA-7 AMB Questionnaire PATRICIA-7 Date PATRICIA - 7 assessed: 12/28/24 Source: Developed by Drs. Kevin Guzman, Naye Kessler, Yoseph Baxter and colleagues, with an educational cholo from [employer]. Review of Systems Const All systems reviewed & are unremarkable except as noted in HPI and below ENT Reports no additional complaints Card Reports no additional complaints Resp Reports no additional complaints GI Reports no additional complaints Physical exam (Primary Care) Vital Signs: Last Vital Signs Temp 98.4 F 01/16/25 10:56 Pulse 78 01/16/25 10:56 Resp 18 01/16/25 10:56 BP 100/66 01/16/25 10:56 Pulse Ox 99 01/16/25 10:56 Oxygen Delivery Method Room Air 01/16/25 10:56 BMI result Body Mass Index 18.5 Tobacco/Smoking Status: Tobacco use Status Tobacco use date assessed 01/16/25 01/16/25 10:47 Patient Tobacco Use Status Never used Tobacco 01/16/25 10:47 e-Cigarette/Vaping Use Never Used 01/16/25 10:47 Thrive Assessment: Date of Thrive Assessment Date Thrive assessed 12/28/24 01/16/25 10:47 Currently or been in a relationship where the following occur: No concerns reported Const General: no acute distress HENMT Head: Yes normal to inspection Ears: TM's normal bilaterally Mouth: Normal oral and palatal mucosa present Throat: Yes postnasal drainage Eyes General: appearance normal, both eyes and all related structures Neck Neck: Yes supple Resp Effort & Inspection: normal respiratory effort Auscultation: wheezes and diminished lung sounds Cardio Rhythm: regular rhythm Heart sounds: S1 normal heart sound present and S2 normal heart sound present Coding Level of Care Code Est Pt Level 3 (73808) Diagnoses Cough R05.9 Assessment & Plan Assessment & Plan (1) Cough: Code(s): R05.9 - Cough, unspecified Category: Medical Plan: Obtain chest x-ray prednisone taper and albuterol p.r.n. prescribed follow-up in 1 week Medications: New albuterol sulfate 90 mcg/actuation 2 puffs inhalation Q6H PRN 8.5 grams 0RF shortness of breath or wheezing benzonatate 200 mg PO TID 30 caps 0RF prednisone Four tablets p.o. q.d. for 3 days then 3 tablets p.o. q.d. for 3 days then 2 tablets p.o. q.d. for 3 days then 1 tablet p.o. q.d. for 3 days orally daily; 30 tabs 0RF Refilled naproxen 500 mg PO BID 60 tabs 1RF
[2025-01-16 10:56] VITALS: BP 100/66; PULSE 78; RESP 18; TEMP 36.9; O2SAT 99; BMI 18.5
== END 2025-01-16 11:43 | disposition home or self-care (01) ==
PROVIDERS: PCP Internal Medicine; Visit Provider Internal Medicine
DX: R05.9 Cough, unspecified (principal)

== ENCOUNTER → 2025-01-16 11:47 | Outpatient (BNV) | payer OTHER, SELFPAY | PROVIDERS: PCP Internal Medicine; Visit Provider Radiology Diagnostic Radiology | DX: R05.9 Cough, unspecified (principal) | CPT/HCPCS: 71046 ==

== ENCOUNTER 2025-01-18 08:33 | Outpatient (AMB) | payer OTHER, SELFPAY ==
--- NOTE | 2025-01-18 08:43 | MHC.OFFVIS ---
Intake Visit Reasons: Followup/CT Scan Intake Note: Patient is Present for Follow Up Urology Medication: Tamsulosin, Myrbetriq Antibiotic Allergies: Erythromycin Blood Thinners: None PVR: 0ml It Infrastructure Specialist Required: No Accompanied by: Self / Same As Patient Allergies codeine Allergy (Verified 01/18/25 09:08) Unknown duloxetine [From Cymbalta] Allergy (Verified 01/18/25 09:08) Unknown erythromycin base Allergy (Verified 01/18/25 09:08) Unknown gabapentin [From Neurontin] Allergy (Verified 01/18/25 09:08) Unknown Medication List - Last Reconciled 01/18/25 by Philip Dahl MD albuterol sulfate 90 mcg/actuation 2 puffs inhalation Q6H PRN benzonatate 200 mg PO TID dupilumab (Dupixent) mg subcut epinephrine 1 mg IM DAILY fluticasone propionate 50 mcg/actuation sprays intranasal ipratropium bromide 2 sprays intranasal BID mirabegron ER (Myrbetriq) 50 mg PO DAILY naproxen 500 mg PO BID prednisone Four tablets p.o. q.d. for 3 days then 3 tablets p.o. q.d. for 3 days then 2 tablets p.o. q.d. for 3 days then 1 tablet p.o. q.d. for 3 days orally daily; sennosides-docusate sodium 8.6-50 mg (Senna Plus) 2 tab-caps (2 x 8.6-50 mg) PO BEDTIME simethicone (Gas Relief (simethicone)) 125 mg PO QID PRN tamsulosin (Flomax) 0.4 mg PO BEDTIME HPI Comments Details: 01/18/2025-- Anamaria is a 64-year-old male who is here for evaluation due to urinary frequency and urgency. He was initially evaluated on 06/26/2024 and prescribed Myrbetriq 25 mg and tamsulosin 0.4 mg which he takes both medications in the evening. He states there has been some improvement in the urinary symptoms but he has started I urgency. I will increase the Myrbetriq to 50 mg daily. I have reviewed CT imaging which notes mild dilatation the ureters right greater than left, findings suggestive of anatomic variant no evidence of obstruction observed. The patient complains of right-sided pain and I have discussed that it is likely musculoskeletal related rather than related to the right kidney. The patient complains of persistent left groin pain history of varicocelectomy. Lidocaine cord block performed by Dr. Sherwood 1% lidocaine plain 10 mL. Will have nursing staff follow-up with patient tomorrow to discuss any change in groin pain symptoms after lidocaine block. 06/26/24--Anamaria is a 64-year-old male who is here for evaluation due to urinary frequency and urgency. 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 The patient states that he he has had right-sided pain and some constipation. He was seen by GI also. He states he had an ultrasound done and was told that on the right side the ureters were dilated. I have discussed further evaluation with ultrasound retroperitoneum. Will empirically trial Myrbetriq 25 mg daily and tamsulosin 0.4 mg at bedtime. 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, Housing: House Are you a primary family member caretaker to a significant other at home: No Do you presently have visiting nurse or other home services: No Patient Tobacco Use Status: Never used Tobacco e-Cigarette/Vaping Use: Never Used service: No Current occupational status: employed 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 Cognitive needs: No Hearing needs: No Vision needs: No Review of Systems Const All systems reviewed & are unremarkable except as noted in HPI and below Reports no additional complaints Eyes Reports no additional complaints ENT Reports no additional complaints Card Reports no additional complaints Resp Reports no additional complaints GI Reports no additional complaints Reports as per HPI Musc Reports no additional complaints Skin/Breast Reports system reviewed and no additional complaints, except as documented Neuro Reports no additional complaints Psych Reports no additional complaints Endo Reports no additional complaints Roberth/Lymph Reports no additional complaints Aller/Immun Reports no additional complaints Office Procedures Office Procedure Misc Details: Dr. Sherwood performed left scrotal cord block using 1% lidocaine injectable 10 mL 25 gauge needle. Skin cleansed with alcohol. Office Procedure Billing Code: AMB Procedure Billing Code Post Void Residual Post Residual Void Post Void Residual (PVR): 0 [id number] Void Residual by ultrasound Results AMB Urinalysis, Automated UA Leukoctes 0 Precious/uL Last Edit by Elle Dowell A on 01/18/25 09:20 UA Nitrite Negative Last Edit by Elle oDwell A on 01/18/25 09:20 UA Urobilinogen 0.2 mg/dL Last Edit by Elle Dowell A on 01/18/25 09:20 UA Protein 15 mg/dL Last Edit by Elle Dowell A on 01/18/25 09:20 UA pH 6.0 Last Edit by Elle Dowell A on 01/18/25 09:20 UA Blood 0 Onel/uL Last Edit by Elle Dowell A on 01/18/25 09:20 UA Specific [place] 1.010 Last Edit by Elle Dowell A on 01/18/25 09:20 UA Ketone Negative Last Edit by Elle Dowell A on 01/18/25 09:20 UA Bilirubin 0 mg/dL Last Edit by Elle Dowell A on 01/18/25 09:20 UA Glucose 0 mg/dL Last Edit by Elle Dowell A on 01/18/25 09:20 Results Reviewed Results Reviewed: Laboratory Last Values Urine pH (Auto) 6.0 01/18/25 09:19 Specific [place] (Auto) 1.010 01/18/25 09:19 Urine Protein (Auto) 15 mg/dL 01/18/25 09:19 Glucose (UA)(Auto) 0 mg/dL 01/18/25 09:19 Urine Ketones (Auto) Negative 01/18/25 09:19 Urine Blood (Auto) 0 Onel/uL 01/18/25 09:19 Urine Nitrite (Auto) Negative 01/18/25 09:19 Urine Bilirubin (Auto) 0 mg/dL 01/18/25 09:19 Urine Urobilinogen (Auto) 0.2 mg/dL 01/18/25 09:19 Leukocyte Esterase (Auto) 0 Precious/uL 01/18/25 09:19 Date of Service: 01/11/25 HISTORY: N13.4 - Hydroureter COMPARISON: Correlation is made with an abdominal ultrasound dated 10/20/2024. TECHNIQUE: CT scan of the abdomen and pelvis was performed before and after the intravenous administration of 100 mL Omnipaque 350. Postcontrast images were obtained in the nephrographic and delayed phases. Coronal and sagittal reformatted images were generated and reviewed. Oral contrast material was not administered per department protocol. This CT exam was performed with one or more of the following dose reduction techniques: automated exposure control, adjustment of the mA and/or kV according to patient size, use of iterative reconstruction technique. DLP: 447 mGy-cm ABDOMEN: LOWER CHEST: The visualized lung bases are clear. There is no pleural effusion. CARDIOVASCULATURE: The heart is normal in size. There is no pericardial effusion. LIVER: The liver is normal in size and contour. There is a 0.9 cm cyst in the left lobe. A smaller cyst is noted in the right lobe. The hepatic and portal veins are patent. GALLBLADDER / BILE DUCTS: The gallbladder is unremarkable. There is no intra or extrahepatic biliary ductal dilatation. SPLEEN: The spleen is normal in size. No focal splenic lesion is identified. PANCREAS: The pancreas is unremarkable in appearance. ADRENAL GLANDS: Within normal limits. KIDNEYS/RETROPERITONEUM: No renal calculi are identified. There is mild dilatation of the collecting systems and proximal ureters, right greater than left. There is mild kinking of the proximal ureters without evidence of obstruction. The mid right ureter is mildly dilated into the pelvis where there is an abrupt changing caliber at the level of the iliac vessels. The mid and distal left ureter is normal in caliber.. There are no ureteral filling defects. There is a 2.0 cm cyst in the interpolar region of the left kidney. LYMPH NODES: No abdominal or pelvic lymphadenopathy. VASCULATURE: The abdominal aorta is normal in caliber. MESENTERY/PERITONEUM: No free fluid. No masses. There is no free intraperitoneal gas. STOMACH: The stomach is collapsed, limiting evaluation. SMALL BOWEL: The small bowel is normal in caliber. COLON: There is a moderate amount of stool throughout the colon. APPENDIX: Normal. URINARY BLADDER/PELVIC ORGANS: The urinary bladder is nondistended, limiting evaluation. The prostate is normal in size. BONES / SOFT TISSUES: No suspicious bony or soft tissue abnormalities. IMPRESSION: Mild dilatation of the bilateral renal collecting systems and proximal ureters, likely secondary to kinking proximally. The right ureter is mildly dilated distal to this, with an abrupt change in caliber in the region of the iliac vessels, likely secondary to extrinsic mass effect. No ureteral filling defects are identified. Date of Service: 08/24/24 US RETROPERITONEAL COMPLETE (RENAL) CLINICAL INFORMATION: Urgency of urination. Please measure prostate. COMPARISON: None available. TECHNIQUE: Real-time imaging of the kidneys and bladder. FINDINGS: RIGHT KIDNEY: 10.0 x 3.9 x 5.6 cm (SAG x AP x TRV). The kidney is normal in size, contour, and echogenicity. Renal cortical thickness is normal. No calculi or focal parenchymal lesions. No hydronephrosis. LEFT KIDNEY: 10.7 x 4.4 x 4.8 cm (SAG x AP x TRV). The kidney is normal in size, contour, and echogenicity. Renal cortical thickness is normal. No renal calculi. A 20 mm lower pole left renal cyst is present. There is also mild dilatation of the left collecting system in the left proximal ureter is dilated to 11 mm, though the cause and level obstruction is not visualized. BLADDER: Well distended. Bilateral ureteral jets are demonstrated. Prevoid bladder volume is 156 mL. Postvoid bladder volume is 11 mL. Enlarged prostate, measuring approximately 3.7 x 3.6 x 5 cm, corresponding to a volume of approximately 35 mL. IMPRESSION: 1. Mild left hydronephrosis and proximal left hydroureter, the cause and level of which is not visualized. Note that the left ureteral jet is visualized. This may be better assessed by CT urography as clinically warranted. 2. Mildly enlarged prostate gland. Assessment & Plan Assessment & Plan (1) Left testicular pain: Code(s): N50.812 - Left testicular pain Category: Medical (2) Right-sided back pain: Code(s): M54.9 - Dorsalgia, unspecified Category: Medical Plan Myrbetriq increased to 50 mg, cont tamsulosin. Will have nursing staff follow-up with patient tomorrow to discuss any change in groin pain symptoms after lidocaine block. Orders: Orders AMB Urinalysis Automated Today Z13.9 - Encounter for screening, unspecified AMB Post Void Residual by ultrasound Today R39.15 - Urgency of urination AMB Office Procedure Misc Today N50.812 - Left testicular pain Medications: New mirabegron ER (Myrbetriq) 50 mg PO DAILY 90 tabs 3RF Discontinued mirabegron ER (Myrbetriq) Discontinued Reason: Duplicate 25 mg PO DAILY 90 tabs 3RF Patient Instructions: The patient had an opportunity to ask questions regarding treatment plan. The patient expressed understanding and agreement with the above treatment plan. The patient is aware they should contact our office by phone for worsening of their current condition or the appearance of new symptoms. Compliance is encouraged with any medications and followup testing that is ordered. It is a privilege to be allowed the opportunity to participate in the urologic care of your patient. If you have any questions or concerns regarding treatment for the above conditions please do not hesitate to contact me. The office telephone contact is [phone]. This note is constructed in part using voice recognition software. While every effort has been made to ensure accuracy laborer tan house errors may have been included. Yours sincerely, Philip Dahl MD Coding Level of Care Code Est Pt Level 4 (62821) Diagnoses Left testicular pain N50.812 Right-sided back pain M54.9 CPT Codes Office Procedure - Office Procedure Billing Code: AMB Procedure Billing Code ([id number]) Post Residual Void - PVR CPT Code: 52185-Dixc Void Residual by ultrasound ([id number])
== END 2025-01-18 10:15 | disposition home or self-care (01) ==
PROVIDERS: PCP Internal Medicine; Visit Provider Urology
DX: N50.812 Left testicular pain (principal); M54.9 Dorsalgia, unspecified; Z13.9 Encounter for screening, unspecified
CPT/HCPCS: 64425; 99214

== ENCOUNTER → 2025-01-18 08:33 | Outpatient (BNVA) | payer OTHER, SELFPAY | PROVIDERS: PCP Internal Medicine; Visit Provider Urology | DX: N50.812 Left testicular pain (principal); M54.9 Dorsalgia, unspecified | CPT/HCPCS: 51798; 64425; 81003; 99212 ==

== ENCOUNTER 2025-01-24 10:48 | Outpatient (AMB) | payer OTHER, SELFPAY ==
[2025-01-24 10:52] VITALS: BP 124/74; PULSE 89; RESP 20; TEMP 36.9; O2SAT 99; BMI 18.5
--- NOTE | 2025-01-24 10:52 | MHC.PC.OV ---
Vital Signs 01/24/25 10:52 Height 5 ft 8 in Weight 122 lb BMI 18.5 BP 124/74 Blood Pressure Location Lt brachial Position Sitting Respiration 20 Pulse 89 Pulse Source Pulse Oximeter Temp 98.4 F Temp Source Oral Pulse Oximetry (%) 99 Oxygen Delivery Method Room Air Intake Visit Reasons: 1 week f/up Intake Note: Pt is here today for 1 week follow up visit on cough. Pt states that he is still coughing. Pt states that he had u/s of his abdomen and it showed swelling and sent him to Urology, and they ordered MRI and he is in a lot pain and Urologist is sending him back to Dr. Reynoso. Allergies codeine Allergy (Verified 01/24/25 10:57) Unknown duloxetine [From Cymbalta] Allergy (Verified 01/24/25 10:57) Unknown erythromycin base Allergy (Verified 01/24/25 10:57) Unknown gabapentin [From Neurontin] Allergy (Verified 01/24/25 10:57) Unknown Medication List - Last Reconciled 01/24/25 by Ibis Reynoso MD albuterol sulfate 90 mcg/actuation 2 puffs inhalation Q6H PRN benzonatate 200 mg PO TID dupilumab (Dupixent) mg subcut epinephrine 1 mg IM DAILY fluticasone propionate 50 mcg/actuation sprays intranasal ipratropium bromide 2 sprays intranasal BID mirabegron ER (Myrbetriq) 50 mg PO DAILY naproxen 500 mg PO BID prednisone Four tablets p.o. q.d. for 3 days then 3 tablets p.o. q.d. for 3 days then 2 tablets p.o. q.d. for 3 days then 1 tablet p.o. q.d. for 3 days orally daily; sennosides-docusate sodium 8.6-50 mg (Senna Plus) 2 tab-caps (2 x 8.6-50 mg) PO BEDTIME simethicone (Gas Relief (simethicone)) 125 mg PO QID PRN tamsulosin (Flomax) 0.4 mg PO BEDTIME Tobacco use date assessed: 01/16/25 Dental Screening Dental Screen Date: 12/28/24 HPI 1 week f/up HPI Details Patient presents for the follow-up of chronic cough. The cough improved when patient was taking higher dose of prednisone and using albuterol BID with good temporary relief. He denies sputum production. Patient completed course of cefuroxime prescribed by ENT for 3 weeks. He denies fever chills pleurisy chest pain palpitations. 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, Housing: House Are you a primary wild animal caretaker to a significant other at home: No Do you presently have visiting nurse or other home services: No Patient Tobacco Use Status: Never used Tobacco e-Cigarette/Vaping Use: Never Used service: No Current occupational status: employed 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 Cognitive needs: No Hearing needs: No Vision needs: No Questionnaire Thrive Questionnaire Date Thrive assessed: 12/28/24 I am a: Patient What is your living situation today?: I have a steady place to live Within the past 12 months, did the food you bought not last and you didn't have the money to get more?: Never true Within the past 12 months, did you worry whether your food would run out before you got money to buy more?: Never true Do you have trouble paying for medicines?: No Do you have trouble getting transportation to medical appointments?: No Do you have trouble paying your heating and electricity bill?: No Do you have trouble taking care of your child, family member or friend?: No Do you have trouble with day-to-day activities such as bathing, preparing meals, shopping, managing finances, etc.?: No Are you currently unemployed and looking for a job?: I choose not to answer this question Are you interested in more education?: I choose not to answer this question Please select the resources that you would like help with: None Currently or been in a relationship where the following occur: No concerns reported THRIVE Score: 0 PATRICIA-7 AMB Questionnaire PATRICIA-7 Date PATRICIA - 7 assessed: 12/28/24 Source: Developed by Drs. Kevin Guzman, Naye Kessler, Yoseph Baxter and colleagues, with an educational cholo from [employer]. Review of Systems Const All systems reviewed & are unremarkable except as noted in HPI and below Eyes Reports no additional complaints ENT Reports no additional complaints Card Reports no additional complaints Resp Reports no additional complaints GI Reports no additional complaints Reports no additional complaints Physical exam (Primary Care) Vital Signs: Last Vital Signs Temp 98.4 F 01/24/25 10:52 Pulse 89 01/24/25 10:52 Resp 20 01/24/25 10:52 BP 124/74 01/24/25 10:52 Pulse Ox 99 01/24/25 10:52 Oxygen Delivery Method Room Air 01/24/25 10:52 BMI result Body Mass Index 18.5 Tobacco/Smoking Status: Tobacco use Status Tobacco use date assessed 01/16/25 01/24/25 10:53 Patient Tobacco Use Status Never used Tobacco 01/24/25 10:53 e-Cigarette/Vaping Use Never Used 01/24/25 10:53 Thrive Assessment: Date of Thrive Assessment Date Thrive assessed 12/28/24 01/24/25 10:53 Currently or been in a relationship where the following occur: No concerns reported Const General: no acute distress HENMT Head: Yes normal to inspection Face and sinus: Yes normal facial exam Mouth: Normal oral and palatal mucosa present Throat: Yes posterior oropharynx normal Eyes General: appearance normal, both eyes and all related structures Neck Neck: Yes no lymphadenopathy and Yes supple Resp Effort & Inspection: able to speak in complete sentences Auscultation: wheezes Cardio Rhythm: regular rhythm Heart sounds: S1 normal heart sound present and S2 normal heart sound present Coding Level of Care Code Est Pt Level 3 (72686) Diagnoses Bronchitis J40 Assessment & Plan Assessment & Plan (1) Bronchitis: Code(s): J40 - Bronchitis, not specified as acute or chronic Category: Medical Plan: Prednisone 40 mg daily for 1 week followed by 20 mg daily for 1 week and Breo Ellipta 200 mcg will be started. Patient is going to [facility] 3 weeks and will follow-up in 1 month Medications: New fluticasone furoate-vilanterol 200-25 mcg/dose (Breo Ellipta) 1 inh inhalation DAILY 60 ea 0RF prednisone 2 tabl x 1 week, then 1 tabl x 1 week 20 mg PO DAILY 21 tabs 0RF Discontinued prednisone Discontinued Reason: Doctor's Order Four tablets p.o. q.d. for 3 days then 3 tablets p.o. q.d. for 3 days then 2 tablets p.o. q.d. for 3 days then 1 tablet p.o. q.d. for 3 days orally daily; 30 tabs 0RF
== END 2025-01-24 12:00 | disposition home or self-care (01) ==
PROVIDERS: PCP Internal Medicine; Visit Provider Internal Medicine
DX: J40 Bronchitis, not specified as acute or chronic (principal)

== ENCOUNTER → 2025-01-24 10:48 | Outpatient (BNVA) | payer OTHER, SELFPAY | PROVIDERS: PCP Internal Medicine; Visit Provider Internal Medicine | DX: J40 Bronchitis, not specified as acute or chronic (principal) | CPT/HCPCS: 99212 ==

== ENCOUNTER 2025-02-26 10:37 | Outpatient (AMB) | payer OTHER, SELFPAY ==
[2025-02-26 10:47] VITALS: BP 118/66; PULSE 76; RESP 18; TEMP 36.7; O2SAT 99; BMI 18.5
--- NOTE | 2025-02-26 10:47 | A.OFFPC_ITS ---
Vital Signs 02/26/25 10:47 Height 5 ft 8 in Weight 122 lb BMI 18.5 BP 118/66 Blood Pressure Location Lt brachial Position Sitting Respiration 18 Pulse 76 Pulse Source Pulse Oximeter Temp 98.0 F Temp Source Oral Pulse Oximetry (%) 99 Oxygen Delivery Method Room Air Intake Visit Reasons: 1m f/up Intake Note: Pt is here today for 1 month follow up visit. Pt states that he still has a cough and he has been having R abdominal pain. Allergies codeine Allergy (Verified 02/26/25 10:54) Unknown duloxetine [From Cymbalta] Allergy (Verified 02/26/25 10:54) Unknown erythromycin base Allergy (Verified 02/26/25 10:54) Unknown gabapentin [From Neurontin] Allergy (Verified 02/26/25 10:54) Unknown Medication List - Last Reconciled 02/26/25 by Ibis Reynoso MD albuterol sulfate 90 mcg/actuation 2 puffs inhalation Q6H PRN dupilumab (Dupixent) mg subcut epinephrine 1 mg IM DAILY fluticasone furoate-vilanterol 200-25 mcg/dose (Breo Ellipta) 1 inh inhalation DAILY fluticasone propionate 50 mcg/actuation sprays intranasal ipratropium bromide 2 sprays intranasal BID mirabegron ER (Myrbetriq) 50 mg PO DAILY naproxen 500 mg PO BID sennosides-docusate sodium 8.6-50 mg (Senna Plus) 2 tab-caps (2 x 8.6-50 mg) PO BEDTIME simethicone (Gas Relief (simethicone)) 125 mg PO QID PRN tamsulosin (Flomax) 0.4 mg PO BEDTIME Tobacco use date assessed: 02/26/25 Dental Screening Dental Screen Date: 02/26/25 Did you have a dental visit in the last 12 months?: Yes Did you have a dental problem in the last 6 months where you did not have access to dental care?: No Was dental information given to patient?: Patient has dentist HPI 1m f/up HPI Details Pt presents for f/u chronic dry cough. He is established with ENT where had allergy testing and was started on Dupixent. Patient has not been using Breo regularly but feels better if he uses it. He denies sputum pr oduction dyspnea on exertion PND orthopnea fever or chills. Patient complains of chronic right-sided and epigastric abdominal discomfort worse after eating. Patient denies nausea vomiting fever chills hematochezia melena constipation diarrhea. He had negative colonoscopy in September 2024 and abdominal ultrasound was negative for gallstones. 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, Housing: House Are you a primary home care chaplain to a significant other at home: No Do you presently have visiting nurse or other home services: No Patient Tobacco Use Status: Never used Tobacco e-Cigarette/Vaping Use: Never Used service: No Current occupational status: employed 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 Cognitive needs: No Hearing needs: No Vision needs: No Questionnaire Thrive Questionnaire Date Thrive assessed: 12/28/24 I am a: Patient What is your living situation today?: I have a steady place to live Within the past 12 months, did the food you bought not last and you didn't have the money to get more?: Never true Within the past 12 months, did you worry whether your food would run out before you got money to buy more?: Never true Do you have trouble paying for medicines?: No Do you have trouble getting transportation to medical appointments?: No Do you have trouble paying your heating and electricity bill?: No Do you have trouble taking care of your child, family member or friend?: No Do you have trouble with day-to-day activities such as bathing, preparing meals, shopping, managing finances, etc.?: No Are you currently unemployed and looking for a job?: I choose not to answer this question Are you interested in more education?: I choose not to answer this question Please select the resources that you would like help with: None Currently or been in a relationship where the following occur: No concerns reported THRIVE Score: 0 AUDIT C Alcohol Use Questionnaire (AUDIT-C) 1. How often do you have a drink containing alcohol?: Never 3. How often do you have six or more drinks on one occasion?: Never Total Score: 0 PATRICIA-7 AMB Questionnaire PATRICIA-7 Date PATRICIA - 7 assessed: 12/28/24 Source: Developed by Drs. Kevin Guzman, Naye Kessler, Yoseph Baxter and colleagues, with an educational cholo from [email or web address]. Review of Systems Const All systems reviewed & are unremarkable except as noted in HPI and below Eyes Reports no additional complaints ENT Reports no additional complaints Card Reports no additional complaints Resp Reports no additional complaints GI Reports no additional complaints Reports no additional complaints Physical exam (Primary Care) Vital Signs: Last Vital Signs Temp 98.0 F 02/26/25 10:47 Pulse 76 02/26/25 10:47 Resp 18 02/26/25 10:47 BP 118/66 02/26/25 10:47 Pulse Ox 99 02/26/25 10:47 Oxygen Delivery Method Room Air 02/26/25 10:47 BMI result Body Mass Index 18.5 Tobacco/Smoking Status: Tobacco use Status Tobacco use date assessed 02/26/25 02/26/25 10:58 Patient Tobacco Use Status Never used Tobacco 02/26/25 10:47 e-Cigarette/Vaping Use Never Used 02/26/25 10:47 Thrive Assessment: Date of Thrive Assessment Date Thrive assessed 12/28/24 02/26/25 10:47 Currently or been in a relationship where the following occur: No concerns reported Const General: no acute distress HENMT Head: Yes normal to inspection Ears: hearing grossly normal bilaterally Mouth: Normal oral and palatal mucosa present Eyes General: appearance normal, both eyes and all related structures Resp Effort & Inspection: normal respiratory effort Auscultation: clear to auscultation bilaterally Cardio Rhythm: regular rhythm Heart sounds: S1 normal heart sound present and S2 normal heart sound present GI Inspection: Yes normal to inspection Palpation (GI): Soft to palpation and Tenderness to palpation present (GI) in the epigastrum and periumbilically Percussion: Yes normal to percussion Auscultation: normal bowel sounds Coding Level of Care Code Est Pt Level 4 (67756) Diagnoses Abdominal pain R10.9 Seasonal allergic rhinitis, unspecified trigger J30.2 Allergic rhinitis trigger: unspecified Allergic rhinitis seasonality: seasonal Hydroureter N13.4 Asthma J45.909 Assessment & Plan Assessment & Plan (1) Abdominal pain: Comment: Right side, negative abdominal ultrasound and CT urogram Code(s): R10.9 - Unspecified abdominal pain Category: Medical Plan: Check comprehensive panel and stool H pylori , trial of omeprazole for 30 days if symptoms persist patient will follow-up with the GI for EGD (2) Allergic rhinitis: Comment: on Dupixent by ENT Code(s): J30.9 - Allergic rhinitis, unspecified Category: Medical Qualifiers: Allergic rhinitis trigger: unspecified Allergic rhinitis seasonality: seasonal Qualified Code(s): J30.2 - Other seasonal allergic rhinitis Plan: Follow-up with the ENT (3) Hydroureter: Comment: bilateral mild on renal US, CT urogram 12/2024 NEGATIVE FOR NEPHROLITHIASIS, URETERAL OBSTRUCTION Code(s): N13.4 - Hydroureter Category: Medical Plan: Follow-up with urology (4) Asthma: Code(s): J45.909 - Unspecified asthma, uncomplicated Category: Medical Plan: Compliance with Breo discussed with the patient. Continue Dupixent and follow- up with ENT Orders: Orders Comprehensive Maurice. Panel Fast Today R10.9 - Unspecified abdominal pain, Z00.00 - Encounter for general adult medical examination without abnormal findings Lipid Panel Today R10.9 - Unspecified abdominal pain, Z00.00 - Encounter for general adult medical examination without abnormal findings H pylori Ag Stool Today R10.9 - Unspecified abdominal pain, Z00.00 - Encounter for general adult medical examination without abnormal findings Complete Blood Count Auto Diff Today R10.9 - Unspecified abdominal pain, Z00.00 - Encounter for general adult medical examination without abnormal findings IRON PROFILE Today R10.9 - Unspecified abdominal pain, Z00.00 - Encounter for general adult medical examination without abnormal findings Medications: New omeprazole 40 mg PO DAILY 30 caps 2RF Refilled fluticasone furoate-vilanterol 200-25 mcg/dose (Breo Ellipta) 1 inh inhalation DAILY 60 ea 5RF
== END 2025-02-26 11:52 | disposition home or self-care (01) ==
LOC: HO.HMCC 10:37
PROVIDERS: PCP Internal Medicine; Visit Provider Internal Medicine
DX: R10.9 Unspecified abdominal pain (principal); J30.2 Other seasonal allergic rhinitis; N13.4 Hydroureter; J45.909 Unspecified asthma, uncomplicated

== ENCOUNTER → 2025-02-26 10:37 | Outpatient (BNVA) | payer OTHER, SELFPAY | PROVIDERS: PCP Internal Medicine; Visit Provider Internal Medicine | DX: R10.9 Unspecified abdominal pain (principal); N13.4 Hydroureter; J45.909 Unspecified asthma, uncomplicated | CPT/HCPCS: 99212 ==

== ENCOUNTER 2025-02-27 09:00 | Outpatient (REF) | payer OTHER, SELFPAY ==
[2025-02-27 10:34] LABS: MANUAL DIFF FLAG NO
[2025-02-27 10:47] LABS: Basophils Percent Auto 0.3 % (0-2); Hemoglobin 14.3 g/dl (14.0-18.0); Imm Gran Abs Auto 0.01 X10*3/uL (0.00-0.03); Imm Gran Pct Auto 0.3 % (0.0-0.4); Mean Corpuscular Hemoglobin 32.5 pg (27.0-33.0); Mean Corpuscular Volume 95.5 fL (80.0-98.0); Mean Platelet Volume 10.2 fL (9.4-12.4); Monocytes Absolute Auto 0.4 X10*3/uL (0.1-1.2); Monocytes Percent Auto 12.3 % (2-11); Neutrophils Absolute Auto 1.7 x10*3/uL (2.0-8.3); Neutrophils Percent Auto 54.1 % (45-73); Platelet Count 173 X10*3/uL (160-400); Red Cell Distribution Width 12.8 % (11.0-16.0); White Blood Count 3.1 X10*3/uL (4.8-10.8)
[2025-02-27 11:12] LABS: Alanine Aminotransferase 31 U/L (0-40); Albumin Level 3.9 g/dL (3.5-5.0); Alkaline Phosphatase 63 U/L (39-117); Anion Gap 7 (12-20); Aspartate Amino Transferase 37 U/L (5-37); Bilirubin Total 0.7 mg/dL (0.0-1.0); Blood Urea Nitrogen 14 mg/dL (9-16); Calcium 9.1 mg/dL (8.4-10.2); Carbon Dioxide 29 mmol/L (22-29); Chloride 112 mmol/L (96-108); Cholesterol 179 mg/dL (<200); Estimated Glomerular Filt Rate > 60; Glucose Fasting 88 mg/dL (60-99); HDL Cholesterol 49 mg/dL (>40); Iron 77 mcg/dL (45-160); LDL Cholesterol Calculated 119 mg/dL (<100); Percent Iron Saturation 28 % (15-50); Potassium 4.3 mmol/L (3.3-5.1); Sodium 144 mmol/L (135-145); Total Iron Binding Capacity 278 mcg/dL (228-428); Total Protein 6.7 g/dL (6.5-8.0); Triglycerides 57 mg/dL (<150); Unsaturated Iron Binding 201 ug/dL
== END 2025-02-27 09:01 | disposition home or self-care (01) ==
LOC: HO.HMGCLDS 09:00
PROVIDERS: PCP Internal Medicine; Visit Provider Internal Medicine
DX: Z00.00 Encounter for general adult medical examination without abnormal findings (principal); R10.9 Unspecified abdominal pain
CPT/HCPCS: 36415; 80053; 80061; 83540; 85025; 87338

== ENCOUNTER 2025-03-28 10:52 | Outpatient (AMB) | payer OTHER, SELFPAY ==
[2025-03-28 10:55] VITALS: BP 110/70; PULSE 65; RESP 18; TEMP 36.7; O2SAT 98; BMI 18.9
--- NOTE | 2025-03-28 10:55 | MHC.PC.OV ---
Vital Signs 03/28/25 10:55 Height 5 ft 8 in Weight 124 lb BMI 18.9 BP 110/70 Blood Pressure Location Lt brachial Position Sitting Respiration 18 Pulse 65 Pulse Source Pulse Oximeter Temp 98.0 F Temp Source Oral Pulse Oximetry (%) 98 Oxygen Delivery Method Room Air Intake Visit Reasons: 1m follow up Allergies codeine Allergy (Verified 03/28/25 10:56) Unknown duloxetine [From Cymbalta] Allergy (Verified 03/28/25 10:56) Unknown erythromycin base Allergy (Verified 03/28/25 10:56) Unknown gabapentin [From Neurontin] Allergy (Verified 03/28/25 10:56) Unknown Medication List - Last Reconciled 03/28/25 by Ibis Reynoso MD albuterol sulfate 90 mcg/actuation 2 puffs inhalation Q6H PRN dupilumab (Dupixent) mg subcut epinephrine 1 mg IM DAILY fluticasone furoate-vilanterol 200-25 mcg/dose (Breo Ellipta) 1 inh inhalation DAILY fluticasone propionate 50 mcg/actuation sprays intranasal ipratropium bromide 2 sprays intranasal BID mirabegron ER (Myrbetriq) 50 mg PO DAILY naproxen 500 mg PO BID omeprazole 40 mg PO DAILY sennosides-docusate sodium 8.6-50 mg (Senna Plus) 2 tab-caps (2 x 8.6-50 mg) PO BEDTIME simethicone (Gas Relief (simethicone)) 125 mg PO QID PRN tamsulosin (Flomax) 0.4 mg PO BEDTIME Tobacco use date assessed: 02/26/25 Dental Screening Dental Screen Date: 02/26/25 HPI 1m follow up HPI Details Patient presents for the follow-up of chronic epigastric and right upper quadrant abdominal pain on and off for 2 years. Patient reports pain worse after eating but also at night. He denies nausea vomiting hematochezia melena constipation diarrhea. Patient took omeprazole 40 mg for 1 month without significant relief. Patient had normal comprehensive panel negative stool H pylori. Patient reports feeling stressed out and upset about his chronic left ankle pain but denies depression, change in appetite or suicidal will ideation. He has been taking naproxen regularly to relief he has chronic left ankle pain. 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, Housing: House Are you a primary care advocate to a significant other at home: No Do you presently have visiting nurse or other home services: No Patient Tobacco Use Status: Never used Tobacco e-Cigarette/Vaping Use: Never Used service: No Current occupational status: employed 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 Cognitive needs: No Hearing needs: No Vision needs: No Questionnaire Thrive Questionnaire Date Thrive assessed: 12/28/24 I am a: Patient What is your living situation today?: I have a steady place to live Within the past 12 months, did the food you bought not last and you didn't have the money to get more?: Never true Within the past 12 months, did you worry whether your food would run out before you got money to buy more?: Never true Do you have trouble paying for medicines?: No Do you have trouble getting transportation to medical appointments?: No Do you have trouble paying your heating and electricity bill?: No Do you have trouble taking care of your child, family member or friend?: No Do you have trouble with day-to-day activities such as bathing, preparing meals, shopping, managing finances, etc.?: No Are you currently unemployed and looking for a job?: I choose not to answer this question Are you interested in more education?: I choose not to answer this question Please select the resources that you would like help with: None Currently or been in a relationship where the following occur: No concerns reported THRIVE Score: 0 PATRICIA-7 AMB Questionnaire PATRICIA-7 Date PATRICIA - 7 assessed: 12/28/24 Source: Developed by Drs. Kevin Guzman, Naye Kessler, Yoseph Baxter and colleagues, with an educational cholo from [employer] Review of Systems Const All systems reviewed & are unremarkable except as noted in HPI and below ENT Reports no additional complaints Card Reports no additional complaints Resp Reports no additional complaints GI Reports no additional complaints Reports no additional complaints Physical exam (Primary Care) Vital Signs: Last Vital Signs Temp 98.0 F 03/28/25 10:55 Pulse 65 03/28/25 10:55 Resp 18 03/28/25 10:55 BP 110/70 03/28/25 10:55 Pulse Ox 98 03/28/25 10:55 Oxygen Delivery Method Room Air 03/28/25 10:55 BMI result Body Mass Index 18.9 Tobacco/Smoking Status: Tobacco use Status Tobacco use date assessed 02/26/25 03/28/25 10:56 Patient Tobacco Use Status Never used Tobacco 03/28/25 10:56 e-Cigarette/Vaping Use Never Used 03/28/25 10:56 Thrive Assessment: Date of Thrive Assessment Date Thrive assessed 12/28/24 03/28/25 10:56 Currently or been in a relationship where the following occur: No concerns reported Const General: no acute distress HENMT Head: Yes normal to inspection Ears: hearing grossly normal bilaterally Face and sinus: Yes normal facial exam Neck Neck: Yes no lymphadenopathy and Yes supple Resp Effort & Inspection: normal respiratory effort Auscultation: clear to auscultation bilaterally Cardio Rhythm: regular rhythm Heart sounds: S1 normal heart sound present and S2 normal heart sound present GI Inspection: Yes normal to inspection Palpation (GI): Soft to palpation Percussion: Yes normal to percussion Auscultation: normal bowel sounds Coding Level of Care Code Est Pt Level 4 (14592) Diagnoses Abdominal pain R10.9 Left ankle pain M25.572 Assessment & Plan Assessment & Plan (1) Abdominal pain: Comment: Chronic Right side abdominal pain for 2 years, negative abdominal ultrasound and CT, negative stool H pylori antigen 01/2025, trial of PPI for 30 days without relief, Code(s): R10.9 - Unspecified abdominal pain Category: Medical Plan: Psychosomatic versus chronic gastritis secondary to NSAIDs. Referred to GI for EGD continue PPI. Stress management discussed with the patient he declined counseling or medications (2) Left ankle pain: Comment: s/p 3 surgeries in [place] last 2020, chronic left ankle pain for 13 years intolerant to gabapentin and duloxetine Code(s): M25.572 - Pain in left ankle and joints of left foot Category: Medical Plan: Continue supportive care and follow-up with orthopedic surgeon Orders: Referrals Gastroenterology Referral R10.13 - Epigastric pain Medications: Refilled omeprazole 40 mg PO DAILY 90 caps 2RF
== END 2025-03-28 11:25 | disposition home or self-care (01) ==
LOC: HO.HMCC 10:53
PROVIDERS: PCP Internal Medicine; Visit Provider Internal Medicine
DX: R10.9 Unspecified abdominal pain (principal); M25.572 Pain in left ankle and joints of left foot

== ENCOUNTER → 2025-03-28 10:52 | Outpatient (BNVA) | payer OTHER, SELFPAY | PROVIDERS: PCP Internal Medicine; Visit Provider Internal Medicine | DX: R10.9 Unspecified abdominal pain (principal); M25.572 Pain in left ankle and joints of left foot | CPT/HCPCS: 99212 ==

== ENCOUNTER 2025-06-09 10:23 | Outpatient (REF) | payer OTHER, SELFPAY ==
--- OUTSIDE RECORDS SUMMARY | 2025-06-09 10:24 | XMS_ITS | Clinical Summary ---
Author Organization [employer] [facility] Address [address] [place] [address] Care Team Providers Care Rn Hemo Dialysis Name Role Phone Unavailable Primary Care Provider Unavailabl e Allergies Active Allergy Reactions Criticality Noted Date Comments Codeine 05/29/2025 Duloxetine Hcl 05/29/2025 Erythromycin 05/29/2025 Medications Dupixent 300 MG/2ML solution prefilled syringe injection 5 Active Breo Ellipta 200-25 MCG/ACT aerosol powder 5 Active Myrbetriq 25 MG 24 hr tablet Take 1 tablet by mouth Once per day. 4 Active Suprep Bowel Prep Kit 17.5-3.13-1.6 GM/177ML solution 480 ML ORALLY FOR COLONOSCOPY PREP 4 Active Myrbetriq 50 MG 24 hr tablet Take 1 tablet by mouth Once per day. 5 Active omeprazole (PriLOSEC) [address] capsule 5 Active predniSONE (Deltasone) 10 MG tablet PLEASE SEE ATTACHED FOR DETAILED DIRECTIONS 5 Active predniSONE (Deltasone) 20 MG tablet TAKE 2 TABLETS BY MOUTH FOR 7 DAYS THEN TAKE 1 TABLET BY MOUTH FOR 1 WEEK EVERY DAY 5 Active Senexon-S 8.6-50 MG tablet Take by mouth at bedtime. 4 Active simethicone (Mylicon) 125 MG chewable tablet TAKE 1 TABLET (125 MG) ORALLY 4 TIMES A DAY NEEDED FOR ABDOMINAL DISTENTION 5 Active tamsulosin (Flomax) 0.4 MG 24 hr capsule take 1 capsule by mouth everyday at bedtime 5 Active Active Problems Problem Noted Date Diagnosed Date Known health problems: none 05/29/2025 Encounters Date Type Department Care Team Description 05/29/2025 1:30 PM EDT Office Visit [facility] ADULT DENTAL [address] [place] [address] Og Rinaldi DMD Known health problems: none (Primary Dx) from Last 3 Months Social History Tobacco Use Types Packs/Day Years Used Date Smoking Tobacco: Never Smokeless Tobacco: Never Tobacco Cessation:Counseling Given: Not Answered Sex and Gender Information Value Date Recorded Sex Assigned at Male 12/25/2024 12:07 PM EST Legal Sex Male 11:23 AM EST Gender Identity Male 12/25/2024 12:07 PM EST Sexual Orientation Straight 05/07/2025 8: 58 AM EDT Last Filed Vital Signs Vital Sign Reading Time Taken Comments Blood Pressure 124/80 05/29/2025 1:33 PM EDT Pulse - - Temperature - - Respiratory Rate - - Oxygen Saturation - - Inhaled Oxygen Concentration - - Weight - - Height - - Body Mass Index - - Plan of Treatment Upcoming Encounters Date Type Department Care Team (Late st Contact Info) Description 06/11/2025 8:00 AM EDT Office Visit [facility] ADULT DENTAL [address] [place] [address] Og Rinaldi DMD [address] [place] [address] Health Maintenance Due Date Last Done Comments CT Colonography 1961 Colonoscopy 1961 Colorectal Cancer Screening 1961 Dental Prophylaxis 1961 Depression Screening 1961 FIT DNA/Cologuard 1961 FIT 1961 FOBT 1961 HIV Screening 1961 Lipid Panel 1961 SDOH Screening 1961 Sigmoidoscopy 1961 Disability Screening 1961 Alcohol/Substance Use Screening 1973 Hepatitis C Screening 1979 DTaP/Tdap/Td Vaccines (1 - Tdap) 1980 Pneumococcal Vaccine: 50+ Ye ars (1 of 1 - PCV) 2011 Zoster Vaccines (1 of 2) 2011 COVID-19 Vaccine ( - 2023-2 5 season) 2024 Influenza Vaccine (#1) 2025 Dental Oral Exam 11/30/2025 05/29/2025 Tobacco Screening 05/29/2026 05/29/2025 Dental X-Ray: Bitewings 05/30/2026 05/29/2025 Dental X-Ray: Full Mouth 05/30/2028 05/29/2025 RSV Patients and Pa tients Aged 60 years or older (1 - 1-dose 75+ series) 2036 HIB Vaccines Aged Out No longer eligi ble based on patient's age to complete this topic HPV Vaccines Aged Out No longer eligi ble based on patient's age to complete this topic Hepatitis A Vaccines Aged Out No long er eligible based on patient's age to complete this topic Hepatitis B Vaccines Aged Out No long er eligible based on patient's age to complete this topic IPV Vaccines Aged Out No longer eligi ble based on patient's age to complete this topic Meningococcal B Vaccine Aged Out No l onger eligible based on patient's age to complete this topic Meningococcal Vaccine Aged Out No geovanni ty eligible based on patient's age to complete this topic RSV under 20 months Aged Out No longe r eligible based on patient's age to complete this topic Rotavirus Vaccines Aged Out No longer eligible based on patient's age to complete this topic Procedures Procedure Name Priority Date/Time Associated Diagnosis Comments CASE PRESENTATION, DETAILED AND EXTENSIVE TREATMENT PLANNING Routine 05/29/2025 1:30 PM EDT INTRAORAL - COMPLETE SERIES OF RADIOGRAPHIC IMAGES Routine 05/29/2025 1:30 PM EDT PERIODIC ORAL EVALUATION - ESTABLISHED PATIENT Routine 05/29/2025 1:30 PM EDT REMOVABLE ORTHODONTIC RETAINER ADJUSTMENT Routine 05/29/2025 12:00 AM EDT 30 O COMPOSITE FILLING Routine 12:00 AM EDT 19 O AMALGAM FILLING Routine 05/29/2025 12:00 AM EDT 15 O COMPOSITE FILLING Routine 12:00 AM EDT 14 PREFABRICATED POST AND CORE IN ADDITION TO CROWN Routine 05/29/2025 12:00 AM EDT 14 ROOT CANAL Routine 05/29/2025 12:00 AM EDT 14 PFM CROWN Routine 05/29/2025 12:00 AM EDT 13 PFM CROWN Routine 05/29/2025 12:00 AM EDT 13 ROOT CANAL Routine 05/29/2025 12:00 AM EDT 8 ML COMPOSITE FILLING Routine 12:00 AM EDT 5 O COMPOSITE FILLING Routine 05/29/2025 12:00 AM EDT 4 DO COMPOSITE FILLING Routine 12:00 AM EDT 3 PFM CROWN Routine 05/29/2025 12:00 AM EDT 3 PREFABRICATED POST AND CORE IN ADDITION TO CROWN Routine 05/29/2025 12:00 AM EDT 3 ROOT CANAL Routine 05/29/2025 12:00 AM EDT 2 D AMALGAM FILLING Routine 05/29/2025 1 2:00 AM EDT 7 DENTAL IMPLANT Routine 05/29/2025 12:0 0 AM EDT 10 DENTAL IMPLANT Routine 05/29/2025 12: 00 AM EDT from Last 3 Months Insurance [facility] MEDICAID STAND ADULT
[2025-06-09 14:22] LABS: PSA,Total (Free>4and<10) 2.06 ng/mL (0.00-4.00)
== END 2025-06-09 10:24 | disposition home or self-care (01) ==
LOC: HO.HMGCLDS 10:23
PROVIDERS: PCP Internal Medicine; Visit Provider Urology
DX: Z12.5 Encounter for screening for malignant neoplasm of prostate (principal)
CPT/HCPCS: 36415; 84153

== ENCOUNTER 2025-06-15 14:43 | Outpatient (AMB) | payer OTHER, SELFPAY ==
--- OUTSIDE RECORDS SUMMARY | 2025-06-11 14:15 | XMS_ITS | Encounter Summary ---
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 Name Role Phone Unavailable Primary Care Provider Unavailabl e Reason for Visit * Reason Comments Consult Root canal consult # 14 Encounter Details Date Type Department Care Team (Late st Contact Info) Description 06/11/2025 2:15 PM EDT Office Visit [facility] ADULT D[facility]AL [address] [place] [address] Social History Tobacco Use Types Packs/Day Years Used Date Smoking Tobacco: Never Smokeless Tobacco: Never Sex and Gender Information Value Date Recorded Sex Assigned at Male 12/25/2024 12:07 PM EST Legal Sex Male 11:23 AM EST Gender Identity Male 12/25/2024 12:07 PM EST Sexual Orientation Straight 05/07/2025 8: 58 AM EDT documented as of this encounter Plan of Treatment Scheduled Orders Name Type Priority Associated Diagnoses Orde r Schedule RE-EVAL - POST-OP OFFICE VISIT Dental Routine [address] arting 06/11/2025 documented as of this encounter Visit Diagnoses Not on filedocumented in this encounter
[2025-06-15 14:45] VITALS: BP 117/58; PULSE 77; BMI 19.1
--- NOTE | 2025-06-15 14:45 | MHC.OFFVIS ---
Vital Signs 06/15/25 14:45 Height 5 ft 8 in Weight 125 lb 10.616 oz BMI 19.1 BP 117/58 L Blood Pressure Location Lt brachial Position Sitting Pulse 77 Intake Visit Reasons: epigastric pain Intake Note: Ekra presents in the office as a follow up patient for epigastric pains. CC: Pains in the stomach that are ongoing and still deals with the constipation. Meds help but not 100%. [place] Required: No Allergies codeine Allergy (Verified 06/15/25 14:46) Unknown duloxetine (From Cymbalta) Allergy (Verified 06/15/25 14:46) Unknown erythromycin base Allergy (Verified 06/15/25 14:46) Unknown gabapentin (From Neurontin) Allergy (Verified 06/15/25 14:46) Unknown HPI HPI epigastric pain: Details: Assessment & Plan (1) Chronic idiopathic constipation: Code(s): K59.04 - Chronic idiopathic constipation Category: Medical Plan He is having some relief with the RUQ pain with moving his bowels better with the senna/colace but some discomfort remains. Now I will add simethicone chew to his regimen before we decide on any further therapy. Keep 09/30 apppt after colonoscopy Medications: New simethicone (Gas Relief (simethicone)) 125 mg PO QID PRN 120 tabs 6RF abdominal distention COLONOSCOPY 10/04/24 Findings: Terminal Ileum-not intubated Cecum:normal Right sided retroflexion- normal Ascending Colon: normal Transverse Colon -normal Descending Colon:normal Sigmoid Colon: moderate diverticulosis Rectum: Retroflexion with small internal hemorrhoids seen, grade I Anorectum - normal Intervention: none Impression and Post Procedure Diagnosis: diverticulosis internal hemorrhoids Plan: High fiber diet leaflet Avoid straining at stool, epsom salts and sitz bath, anusol supps or cream Repeat Colonoscopy in 2-3 years due to some areas of fair prep or earlier if clinically indicated US ABD 09/2024 FINDINGS: LIVER: Normal. The liver is normal in size. The liver contour is normal. Parenchymal echogenicity is normal. No focal hepatic lesion. There is no intrahepatic biliary duct dilatation seen. GALLBLADDER: Normal. The gallbladder is physiologically distended without evidence of stones, sludge, polyps, wall thickening or pericholecystic fluid. COMMON BILE DUCT: Normal in caliber measuring 0.26 cm in diameter. RIGHT KIDNEY: Normal. No hydronephrosis. No renal calculi or focal parenchymal lesions. The kidney measures 9.9 cm in maximum dimension. LEFT KIDNEY: Simple cyst 1.9 cm. Dilated right ureter uncertain etiology. No hydronephrosis or renal calculi. The kidney measures 10.3 cm in maximum dimension. US/US abdomen limited IMPRESSION: 1. No ultrasound evidence of gallbladder disease or gallstones. 2. Dilated right ureter uncertain etiology. If patient remain symptomatic may consider correlation with follow-up CT scan to assess for possible obstructing stone. Laboratory Tests 02/27/25 02/27/25 09:08 11:15 WBC 3.1 L Hgb 14.3 Hct 42.0 Plt Count 173 Estimated GFR > 60 Total Bilirubin 0.7 AST 37 ALT 31 Alkaline Phosphatase 63 Stool H. pylori Ag negative TODAYS VISIT Patient has been referred for new complaint of <del>epigastric</del> <del>pain.</del> He says he has been having pain in the right abdomen for 2 years. When I say him in the past we thought it was r/t CIC and we gave him a senna-colace combo pill. That is all goes he still only move his bowels most every day but not every day. The stools are formed. The pain will tend to start about 30 minutes after eating and although he has a dull pain that persists throughout the day it becomes sharp and throbbing in this timeframe. The pain will back down again 2 or 3 hours after eating. He sometimes is gassy and hears borborygmus and he takes simethicone. He denies any nausea vomiting dyspepsia, trouble swallowing, or epigastric pain. Ultrasound did uncover an enlarged right ureter but he has been to Urology they do not seem to think that this is part of his pain presentation. I think that is a constipation issue is not yet resolved, I think that this is bowel cramping so with this in mind we are going to start him on low-dose 72 micro g Linzess and give him some dicyclomine to take 3 times a day. While his primary care provider was thinking about an endoscopy his presentation does not fit with this as also evidenced by the fact that he has had no help with the omeprazole 40 mg daily. We can always consider additional studies depending on how he responds to this regimen. 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, Housing: House Are you a primary care trainer to a significant other at home: No Do you presently have visiting nurse or other home services: No Patient Tobacco Use Status: Never used Tobacco e-Cigarette/Vaping Use: Never Used service: No Current occupational status: employed 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 Cognitive needs: No Hearing needs: No Vision needs: No Review of Systems Const Denies fatigue, Denies fever(s), Denies night sweats, Denies poor appetite and Denies weight loss ENT Reports Normal hearing present, Denies dental pain, Denies dysphagia, Denies hearing loss, Denies mouth pain, Denies odynophagia, Denies throat swelling, Denies tongue swelling and Reports other (Dentition adequate) Card Reports no additional complaints Resp Reports no additional complaints GI Details: Reports abdominal pain (right sided mid abd pain), Denies melena, Denies bloating, Denies hematochezia, Reports constipation, Denies GI cramping, Denies dysphagia, Reports excessive flatus, Denies early satiety, Denies heartburn, Denies diarrhea, Denies nausea, Denies odynophagia, Denies vomiting and Denies hematemesis Skin/Breast Denies pruritus, Denies lesions, Denies rash and Denies jaundice Neuro Reports Normal hearing present and Denies Abnormal speech present Endo Denies fatigue Aller/Immun Denies throat swelling and Denies tongue swelling Physical Exam Vital Signs: Last Vital Signs Pulse 77 06/15/25 14:45 BP 117/58 L 06/15/25 14:45 BMI result Body Mass Index 19.1 Const General: cooperative, no acute distress, well developed and well groomed Nutritional Appearance: well nourished Orientation/consciousness: oriented to person, oriented to place and oriented to time Limitations: No language barrier and ambulation with cane HEENT Head: Yes normocephalic and Yes atraumatic Eyes General: appearance normal, both eyes and all related structures Pupils: Equal, round and reactive pupils present Neck Neck: Yes normal visual inspection and Yes no lymphadenopathy Thyroid: Thyroid normal Resp Effort & Inspection: normal respiratory effort and able to speak in complete sentences Auscultation: clear to auscultation bilaterally Cardio Rate: regular rate Rhythm: regular rhythm Heart sounds: Normal, physiologic split S2 sound present Peripheral pulses: radial pulses present and posterior tibial pulses present GI Inspection: No distended, No Abdominal panniculus present and Yes obesity Palpation (GI): Soft to palpation, nontender, no guarding, not rigid and No hepatosplenomegaly present Percussion: Yes normal to percussion Auscultation: normal bowel sounds Rectal Exam - Male: Yes deferred Skin General skin exam: no rashes or lesions noted, turgor normal, skin not dry, no jaundice, No spider nevi and no striae Rashes: no rashes Nails: normal Neuro General: oriented to person, oriented to place and oriented to time Cranial nerves: Yes Equal, round and reactive pupils present and Yes Normal hearing present Speech: No Abnormal speech present Extrem General: Yes normal to inspection, No clubbing, No cyanosis and No edema Psych Appearance: grossly normal and well kempt Mental Status: mental status grossly normal Speech and movement: Normal speech and movement present Thought process: Normal thought process present and not confabulating Thought content: Normal thought content present Insight: Good insight present (Psych) Judgement: Good judgement present (Psych) Assessment & Plan Assessment & Plan (1) Abdominal pain: Comment: Chronic Right side abdominal pain for 2 years, negative abdominal ultrasound and CT, negative stool H pylori antigen 01/2025, trial of PPI for 30 days without relief, Code(s): R10.9 - Unspecified abdominal pain Category: Medical (2) Chronic idiopathic constipation: Code(s): K59.04 - Chronic idiopathic constipation Category: Medical Plan Patient has been referred for new complaint of <del>epigastric</del> <del>pain.</del> He says he has been having pain in the right abdomen for 2 years. When I say him in the past we thought it was r/t CIC and we gave him a senna-colace combo pill. That is all goes he still only move his bowels most every day but not every day. The stools are formed. The pain will tend to start about 30 minutes after eating and although he has a dull pain that persists throughout the day it becomes sharp and throbbing in this timeframe. The pain will back down again 2 or 3 hours after eating. He sometimes is gassy and hears borborygmus and he takes simethicone. He denies any nausea vomiting dyspepsia, trouble swallowing, or epigastric pain. Ultrasound did uncover an enlarged right ureter but he has been to Urology they do not seem to think that this is part of his pain presentation. I think that is a constipation issue is not yet resolved, I think that this is bowel cramping so with this in mind we are going to start him on low-dose 72 micro g Linzess and give him some dicyclomine to take 3 times a day. While his primary care provider was thinking about an endoscopy his presentation does not fit with this as also evidenced by the fact that he has had no help with the omeprazole 40 mg daily. We can always consider additional studies depending on how he responds to this regimen. Return office visit in 4 weeks Medications: New linaclotide (Linzess) 72 mcg PO QAM 30 caps 6RF K59.04 - Chronic idiopathic constipation dicyclomine 20 mg PO TID 90 tabs 3RF 30 days R10.9 - Unspecified abdominal pain Refilled sennosides-docusate sodium 8.6-50 mg (Senna Plus) 2 tab-caps (2 x 8.6-50 mg) PO BEDTIME 60 caps 3RF K59.04 - Chronic idiopathic constipation Coding Level of Care Code Est Pt Level 3 (78063) Diagnoses Abdominal pain R10.9 Chronic idiopathic constipation K59.04
== END 2025-06-15 15:44 | disposition home or self-care (01) ==
LOC: HO.HGI 14:43
PROVIDERS: PCP Internal Medicine; Visit Provider Nurse Practitioner
DX: R10.9 Unspecified abdominal pain (principal); K59.04 Chronic idiopathic constipation
CPT/HCPCS: 99213

== ENCOUNTER → 2025-06-15 14:43 | Outpatient (BNVA) | payer OTHER, SELFPAY | PROVIDERS: PCP Internal Medicine; Visit Provider Nurse Practitioner | DX: K59.04 Chronic idiopathic constipation (principal); R10.9 Unspecified abdominal pain | CPT/HCPCS: 99212 ==

== ENCOUNTER 2025-07-17 15:16 | Outpatient (AMB) | payer OTHER, SELFPAY ==
--- NOTE | 2025-07-17 15:29 | A.OFFVIS_ITS ---
Vital Signs 07/17/25 15:32 Height 5 ft 8 in Weight 127 lb 13.89 oz BMI 19.4 BP 113/72 Blood Pressure Location Lt brachial Pulse 72 Intake Visit Reasons: rt sided abd pain Intake Note: Ekra presents in the office as a follow up for right sided pains in the abdomen. CC: States that the pains are still ongoing on the right side - states he takes the medications to loosen the stools and it seems to be helping a little bit. Echocardiography Radiology Technologist Required: No Allergies codeine Allergy (Verified 07/17/25 15:33) Unknown duloxetine (From Cymbalta) Allergy (Verified 07/17/25 15:33) Unknown erythromycin base Allergy (Verified 07/17/25 15:33) Unknown gabapentin (From Neurontin) Allergy (Verified 07/17/25 15:33) Unknown HPI HPI rt sided abd pain: Details: Assessment & Plan (1) Abdominal pain: Comment: Chronic Right side abdominal pain for 2 years, negative abdominal ultrasound and CT, negative stool H pylori antigen 01/2025, trial of PPI for 30 days without relief, Code(s): R10.9 - Unspecified abdominal pain Category: Medical (2) Chronic idiopathic constipation: Code(s): K59.04 - Chronic idiopathic constipation Category: Medical Plan Patient has been referred for new complaint of -[id number]- -[id number]-a-i-[id number]-.- He says he has been having pain in the right abdomen for 2 years. When I say him in the past we thought it was r/t CIC and we gave him a senna-colace combo pill. That is all goes he still only move his bowels most every day but not every day. The stools are formed. The pain will tend to start about 30 minutes after eating and although he has a dull pain that persists throughout the day it becomes sharp and throbbing in this timeframe. The pain will back down again 2 or 3 hours after eating. He sometimes is gassy and hears borborygmus and he takes simethicone. He denies any nausea vomiting dyspepsia, trouble swallowing, or epigastric pain. Ultrasound did uncover an enlarged right ureter but he has been to Urology they do not seem to think that this is part of his pain presentation. I think that is a constipation issue is not yet resolved, I think that this is bowel cramping so with this in mind we are going to start him on low-dose 72 micro g Linzess and give him some dicyclomine to take 3 times a day. While his primary care provider was thinking about an endoscopy his presentation does not fit with this as also evidenced by the fact that he has had no help with the omeprazole 40 mg daily. We can always consider additional studies depending on how he responds to this regimen. Return office visit in 4 weeks Medications: New linaclotide (Linzess) 72 mcg PO QAM 30 caps 6RF K59.04 - Chronic idiopathic constipation dicyclomine 20 mg PO TID 90 tabs 3RF 30 days R10.9 - Unspecified abdominal pain Refilled sennosides-docusate sodium 8.6-50 mg (Senna Plus) 2 tab-caps (2 x 8.6-50 mg) PO BEDTIME 60 caps 3RF K59.04 - Chronic idiopathic constipation [facility] Medical History Annual physical exam Allergic rhinitis Sinusitis Lumbar strain Calcaneus fracture, left Fall Sacroiliac joint dysfunction of both sides Surgical History Hx of colonoscopy H/O sinus surgery History of carpal tunnel surgery History of ankle surgery Social History Household Members Other:: , 1 daughter, 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 Cognitive needs: No Hearing needs: No Vision needs: No Review of Systems Const Denies fatigue, Denies fever(s), Denies night sweats, Denies poor appetite and Denies weight loss ENT Reports Normal hearing present, Denies dysphagia, Denies odynophagia, Denies throat swelling and Denies tongue swelling Card Reports no additional complaints Resp Reports no additional complaints GI Details: Reports abdominal pain, Denies melena, Reports bloating, Denies hematochezia, Reports constipation, Denies GI cramping, Denies dysphagia, Denies excessive flatus, Denies early satiety, Reports heartburn, Denies diarrhea, Denies nausea, Denies odynophagia, Denies vomiting and Denies hematemesis Skin/Breast Denies pruritus, Denies lesions, Denies rash and Denies jaundice Neuro Reports Normal hearing present and Denies Abnormal speech present Endo Denies fatigue Aller/Immun Denies throat swelling and Denies tongue swelling Physical Exam Vital Signs: Last Vital Signs Pulse 72 07/17/25 15:32 BP 113/72 07/17/25 15:32 BMI result Body Mass Index 19.4 Const General: cooperative, no acute distress, well developed and well groomed Nutritional Appearance: average body habitus and well nourished Orientation/consciousness: oriented to person, oriented to place and oriented to time Limitations: No language barrier and ambulation with cane HEENT Head: Yes normocephalic and Yes atraumatic Eyes General: appearance normal, both eyes and all related structures Pupils: Equal, round and reactive pupils present Neck Neck: Yes normal visual inspection and Yes no lymphadenopathy Thyroid: Thyroid normal Resp Effort & Inspection: normal respiratory effort and able to speak in complete sentences Auscultation: clear to auscultation bilaterally Cardio Rate: regular rate Rhythm: regular rhythm Heart sounds: Normal, physiologic split S2 sound present Peripheral pulses: radial pulses present and posterior tibial pulses present GI Inspection: No distended and No Abdominal panniculus present Palpation (GI): Soft to palpation, nontender, no guarding, not rigid and No hepatosplenomegaly present Percussion: Yes normal to percussion Auscultation: normal bowel sounds Rectal Exam - Male: Yes deferred Skin General skin exam: no rashes or lesions noted, turgor normal, skin not dry, no jaundice, No spider nevi and no striae Rashes: no rashes Nails: normal Neuro General: oriented to person, oriented to place and oriented to time Cranial nerves: Yes Equal, round and reactive pupils present and Yes Normal hearing present Speech: No Abnormal speech present Extrem General: Yes normal to inspection, No clubbing, No cyanosis and No edema Psych Appearance: grossly normal and well kempt Mental Status: mental status grossly normal Speech and movement: Normal speech and movement present Affect: normal affect Attitude: cooperative Thought process: Normal thought process present and not confabulating Thought content: Normal thought content present Insight: Good insight present (Psych) Judgement: Good judgement present (Psych) Assessment & Plan Assessment & Plan (1) RUQ pain: Code(s): R10.11 - Right upper quadrant pain Category: Medical (2) Chronic idiopathic constipation: Code(s): K59.04 - Chronic idiopathic constipation Category: Medical (3) Epigastric pain: Code(s): R10.13 - Epigastric pain Category: Medical Plan History of Present Illness - The patient is a 65-year-old male presenting with follow-up for abdominal pain and constipation. - He previously experienced low right abdominal pain attributed to potential constipation and was treated with linaclotide 72 micro g and dicyclomine. - The patient developed nausea and abdominal pain possibly from dicyclomine, prompting its discontinuation. - Linaclotide resulted in occasional soft stools but was not consistently effective. - Additional gastric pain emerged and persisted post-dicyclomine use, and exacerbated post eating, in the past this had been come down by 40 mg of omeprazole. - Last colonoscopy in 2023 was normal, though preparation was inadequate. Patient was informed and verbally consented to the use of an ambient scribe for clinic note documentation during this visit. Patient Instructions - Begin the new dose of linaclotide 145 micro g on a day you are not working to observe effects and so that you do not have diarrhea unexpectedly.. - Discontinue using dicyclomine due to adverse effects experienced. This seem to just increase his pain and his GERD symptoms. - Continue taking omeprazole 40 mg daily as prescribed. - Return for follow-up in approximately four weeks or sooner if symptoms worsen. - Monitor for severe side effects like excessive diarrhea and seek medical advice if they occur. - Report any significant symptom changes, particularly related to abdominal or gastric pain. Medications: New linaclotide (Linzess) Take first thing in the morning with a full glass of water. 145 mcg PO QAM 30 caps 6RF K58.1 - Irritable bowel syndrome with constipation Refilled sennosides-docusate sodium 8.6-50 mg (Senna Plus) 2 tab-caps (2 x 8.6-50 mg) PO BEDTIME 60 caps 3RF K59.04 - Chronic idiopathic constipation On Hold linaclotide (Linzess) Hold Comment: Doctor's Order 72 mcg PO QAM 30 caps 6RF K59.04 - Chronic idiopathic constipation Coding Level of Care Code Est Pt Level 3 (83635) Diagnoses RUQ pain R10.11 Chronic idiopathic constipation K59.04 Epigastric pain R10.13
[2025-07-17 15:32] VITALS: BP 113/72; PULSE 72; BMI 19.4
--- OUTSIDE RECORDS SUMMARY | 2025-07-17 16:32 | XMS_ITS | Clinical Summary ---
Author Organization [employer] [facility] Address [address] [place] [address] Care Team Providers Care Staff Home Therapy Rn Name Role Phone Unavailable Primary Care Provider [...] Encounters Date Type Department Care Team Description 06/14/2025 2:00 PM EDT Office Visit [facility] [address] [place] [place] [address] Michelle Armstrong 06/11/2025 2:15 PM EDT [facility] [address] [place] [address] 06/11/2025 8:00 AM EDT Office Visit [facility] [address] [place] [address] Og Rinaldi DMD 05/29/2025 1:30 PM EDT Office Visit [facility] [address] [place] [address] Og Rinaldi, SHRADDHA Known health problems: none (Primary Dx) from [...] Sign Reading Time Taken Comments Blood Pressure 98/60 06/14/2025 2:00 PM EDT Pulse 76 06/14/2025 2:00 PM EDT Temperature - - Respiratory Rate - - Oxygen Saturation - - Inhaled Oxygen Concentration - - Weight - - Height - - Body Mass Index - - Plan of Treatment Health Maintenance Due Date Last Done Comments CT Colonography 1961 Colonoscopy 1961 Colorectal Cancer Screening 1961 Depression Screening 1961 FIT DNA/Cologuard 1961 FIT 1961 FOBT 1961 HIV Screening 1961 Lipid Panel 1961 SDOH Screening 1961 Sigmoidoscopy 1961 Disability Screening 1961 Alcohol/Substance Use Screening 1973 Hepatitis C Screening 1979 DTaP/Tdap/Td Vaccines (1 - Tdap) 1980 Pneumococcal Vaccine: 50+ Ye ars (1 of 1 - PCV) 2011 Zoster Vaccines (1 of 2) 2011 COVID-19 Vaccine (1 - 2023-2 5 season) 2024 Influenza Vaccine (#1) 2025 Dental Oral Exam 11/30/2025 05/29/2025 Dental Prophylaxis 12/16/2025 06/14/2025 Dental X-Ray: Bitewings 05/30/2026 05/29/2025 Tobacco Screening 06/14/2026 06/14/2025 Dental X-Ray: Full Mouth 05/30/2028 05/29/2025 RSV [...] PRESENTATION, DETAILED AND EXTENSIVE TREATMENT PLANNING Routine 06/14/2025 2:00 PM EDT PROPHYLAXIS - ADULT Routine 06/14/2025 2 :00 PM EDT 10 IMPLANT SUPPORTED CROWN - PREDOMINANTLY BASE ALLOYS Routine 06/13/2025 12:00 AM EDT 7 IMPLANT SUPPORTED CROWN - PREDOMINANTLY BASE ALLOYS Routine 06/13/2025 12:00 AM EDT CASE PRESENTATION, DETAILED AND EXTENSIVE TREATMENT PLANNING Routine 06/11/2025 8:00 AM EDT 8 DFL RESIN-BASED COMPOSITE - 3 SURF, ANTERIOR Routine 06/11/2025 8:00 AM EDT CASE PRESENTATION, DETAILED AND EXTENSIVE TREATMENT PLANNING [...] AM EDT from Last 3 Months Insurance DENTAL-[facility] MEDICAID STAND ADULT
== END 2025-07-17 16:15 | disposition home or self-care (01) ==
LOC: HO.HGI 15:16
PROVIDERS: PCP Internal Medicine; Visit Provider Nurse Practitioner
DX: R10.11 Right upper quadrant pain (principal); K59.04 Chronic idiopathic constipation; R10.13 Epigastric pain
CPT/HCPCS: 99213

== ENCOUNTER → 2025-07-17 15:16 | Outpatient (BNVA) | payer OTHER, SELFPAY | PROVIDERS: PCP Internal Medicine; Visit Provider Nurse Practitioner | DX: R10.11 Right upper quadrant pain (principal); K59.04 Chronic idiopathic constipation; R10.13 Epigastric pain | CPT/HCPCS: 99212 ==

== ENCOUNTER 2025-07-27 13:17 | Outpatient (AMB) | payer OTHER, SELFPAY ==
--- NOTE | 2025-07-27 13:18 | A.OFFVIS_ITS ---
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 He is prescribed tamsulosin and Myrbetriq to 50 mg. Reviewed PSA 06/09/2025 2.06 ng/mL. Urinalysis is negative. Bladder scan PVR 3 mL. He states that he is up 1-2 times at night to urinate. During the day he still has a few episodes urgency. He does admit he is able to wait at least 3 hours comfortably without a strong urge. I have encouraged to retrain and have timed voiding every 3-4 hours. The patient complains of right-sided pain. I have reviewed the renal ultrasound the right kidney is normal left kidney has a small cyst with mild dilatation of the ureter. I have discussed that the pain on the right side is not related. The patient also complains of left testicular pain, when he was evaluated in December Dr. Sherwood gave a lidocaine injection he states that was helpful. We will have him follow-up with Dr. Sherwood regarding this concern. Continued PSA screening and we will continue Myrbetriq and tamsulosin telehealth follow-up in 1 year with PSA. 01/18/2025-- Anamaria is a 64-year-old male who is here for evaluation due to urinary frequency and urgency. He was initially evaluated on 06/26/2024 and prescribed Myrbetriq 25 mg and tamsulosin 0.4 mg which he takes both medications in the evening. He states there has been some improvement in the urinary symptoms but he has started I urgency. I will increase the Myrbetriq to 50 mg daily. I have reviewed CT imaging which notes mild dilatation the ureters right greater than left, findings suggestive of anatomic variant no evidence of obstruction observed. The patient complains of right-sided pain and I have discussed that it is likely musculoskeletal related rather than related to the right kidney. The patient complains of persistent left groin pain history of varicocelectomy. Lidocaine cord block performed by Dr. Sherwood 1% lidocaine plain 10 mL. Will have nursing staff follow-up with patient tomorrow to discuss any change in groin pain symptoms after lidocaine block. 06/26/24--Anamaria is a 64-year-old male who is here for evaluation due to urinary frequency and urgency. 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 The patient states that he he has had right-sided pain and some constipation. He was seen by GI also. He states he had an ultrasound done and was told that on the right side the ureters were dilated. I have discussed further evaluation with ultrasound retroperitoneum. Will empirically trial Myrbetriq 25 mg daily and tamsulosin 0.4 mg at bedtime. 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, Housing: House Are you a primary rn progressive care unit to a significant other at home: No Do you presently have visiting nurse or other home services: No Patient Tobacco Use Status: Never used Tobacco e-Cigarette/Vaping Use: Never Used service: No Current occupational status: employed 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 Cognitive needs: No Hearing needs: No Vision needs: No Review of Systems Const All systems reviewed & are unremarkable except as noted in HPI and below Reports no additional complaints Eyes Reports no additional complaints ENT Reports no additional complaints Card Reports no additional complaints Resp Reports no additional complaints GI Reports no additional complaints Reports as per HPI Musc Reports no additional complaints Skin/Breast Reports system reviewed and no additional complaints, except as documented Neuro Reports no additional complaints Psych Reports no additional complaints Endo Reports no additional complaints Roberth/Lymph Reports no additional complaints Aller/Immun Reports no additional complaints Office Procedures Post Void Residual Post Residual Void Post Void Residual (PVR): 3 [id number] Void Residual by ultrasound Results AMB Urinalysis, Automated UA Leukoctes 0 Precious/uL Last Edit by RAMSEY Jmienez on 07/27/25 13:31 UA Nitrite Negative Last Edit by Alexandria Lemons [facility] on 07/27/25 13:31 UA Urobilinogen 3.5 mg/dL Last Edit by Alexandria Lemons [facility] on 07/27/25 13:3 1 UA Protein 0 mg/dL Last Edit by Alexandria Lemons [facility] on 07/27/25 13:31 UA pH 6.0 Last Edit by Alexandria Lemons [facility] on 07/27/25 13:31 UA Blood 0 Onel/uL Last Edit by Alexandria Lemons [facility] on 07/27/25 13:31 UA Specific Yale 1.010 Last Edit by Alexandria Lemons [facility] on 07/27/25 13: 31 UA Ketone Negative Last Edit by Alexandria Lemons [facility] on 07/27/25 13:31 UA Bilirubin 0 mg/dL Last Edit by Alexandria Lemons [facility] on 07/27/25 13:31 UA Glucose 0 mg/dL Last Edit by Alexandria Lemons [facility] on 07/27/25 13:31 Results Reviewed Results Reviewed: Laboratory Last Values Urine pH (Auto) 6.0 07/27/25 13:31 Specific Yale (Auto) 1.010 07/27/25 13:31 Urine Protein (Auto) 0 mg/dL 07/27/25 13:31 Glucose (UA)(Auto) 0 mg/dL 07/27/25 13:31 Urine Ketones (Auto) Negative 07/27/25 13:31 Urine Blood (Auto) 0 Onel/uL 07/27/25 13:31 Urine Nitrite (Auto) Negative 07/27/25 13:31 Urine Bilirubin (Auto) 0 mg/dL 07/27/25 13:31 Urine Urobilinogen (Auto) 3.5 mg/dL 07/27/25 13:31 Leukocyte Esterase (Auto) 0 Precious/uL 07/27/25 13:31 Date of Service: 01/11/25 HISTORY: N13.4 - Hydroureter COMPARISON: Correlation is made with an abdominal ultrasound dated 10/20/2024. TECHNIQUE: CT scan of the abdomen and pelvis was performed before and after the intravenous administration of 100 mL Omnipaque 350. Postcontrast images were obtained in the nephrographic and delayed phases. Coronal and sagittal reformatted images were generated and reviewed. Oral contrast material was not administered per department protocol. This CT exam was performed with one or more of the following dose reduction techniques: automated exposure control, adjustment of the mA and/or kV according to patient size, use of iterative reconstruction technique. DLP: 447 mGy-cm ABDOMEN: LOWER CHEST: The visualized lung bases are clear. There is no pleural effusion. CARDIOVASCULATURE: The heart is normal in size. There is no pericardial effusion. LIVER: The liver is normal in size and contour. There is a 0.9 cm cyst in the left lobe. A smaller cyst is noted in the right lobe. The hepatic and portal veins are patent. GALLBLADDER / BILE DUCTS: The gallbladder is unremarkable. There is no intra or extrahepatic biliary ductal dilatation. SPLEEN: The spleen is normal in size. No focal splenic lesion is identified. PANCREAS: The pancreas is unremarkable in appearance. ADRENAL GLANDS: Within normal limits. KIDNEYS/RETROPERITONEUM: No renal calculi are identified. There is mild dilatation of the collecting systems and proximal ureters, right greater than left. There is mild kinking of the proximal ureters without evidence of obstruction. The mid right ureter is mildly dilated into the pelvis where there is an abrupt changing caliber at the level of the iliac vessels. The mid and distal left ureter is normal in caliber.. There are no ureteral filling defects. There is a 2.0 cm cyst in the interpolar region of the left kidney. LYMPH NODES: No abdominal or pelvic lymphadenopathy. VASCULATURE: The abdominal aorta is normal in caliber. MESENTERY/PERITONEUM: No free fluid. No masses. There is no free intraperitoneal gas. STOMACH: The stomach is collapsed, limiting evaluation. SMALL BOWEL: The small bowel is normal in caliber. COLON: There is a moderate amount of stool throughout the colon. APPENDIX: Normal. URINARY BLADDER/PELVIC ORGANS: The urinary bladder is nondistended, limiting evaluation. The prostate is normal in size. BONES / SOFT TISSUES: No suspicious bony or soft tissue abnormalities. IMPRESSION: Mild dilatation of the bilateral renal collecting systems and proximal ureters, likely secondary to kinking proximally. The right ureter is mildly dilated distal to this, with an abrupt change in caliber in the region of the iliac vessels, likely secondary to extrinsic mass effect. No ureteral filling defects are identified. Date of Service: 08/24/24 US RETROPERITONEAL COMPLETE (RENAL) CLINICAL INFORMATION: Urgency of urination. Please measure prostate. COMPARISON: None available. TECHNIQUE: Real-time imaging of the kidneys and bladder. FINDINGS: RIGHT KIDNEY: 10.0 x 3.9 x 5.6 cm (SAG x AP x TRV). The kidney is normal in size, contour, and echogenicity. Renal cortical thickness is normal. No calculi or focal parenchymal lesions. No hydronephrosis. LEFT KIDNEY: 10.7 x 4.4 x 4.8 cm (SAG x AP x TRV). The kidney is normal in size, contour, and echogenicity. Renal cortical thickness is normal. No renal calculi. A 20 mm lower pole left renal cyst is present. There is also mild dilatation of the left collecting system in the left proximal ureter is dilated to 11 mm, though the cause and level obstruction is not visualized. BLADDER: Well distended. Bilateral ureteral jets are demonstrated. Prevoid bladder volume is 156 mL. Postvoid bladder volume is 11 mL. Enlarged prostate, measuring approximately 3.7 x 3.6 x 5 cm, corresponding to a volume of approximately 35 mL. IMPRESSION: 1. Mild left hydronephrosis and proximal left hydroureter, the cause and level of which is not visualized. Note that the left ureteral jet is visualized. This may be better assessed by CT urography as clinically warranted. 2. Mildly enlarged prostate gland. Assessment & Plan Assessment & Plan (1) Left testicular pain: Code(s): N50.812 - Left testicular pain Category: Medical (2) Urgency-frequency syndrome: Code(s): N32.81 - Overactive bladder Category: Medical Plan The patient also complains of left testicular pain, when he was evaluated in December Dr. Sherwood gave a lidocaine injection he states that was helpful. We will have him follow-up with Dr. Sherwood regarding this concern. Continued PSA screening and we will continue Myrbetriq and tamsulosin telehealth follow-up in 1 year with PSA. Orders: Orders AMB Post Void Residual by ultrasound Today R39.15 - Urgency of urination AMB Urinalysis Automated Today Z13.9 - Encounter for screening, unspecified Patient Instructions: The patient had an opportunity to ask questions regarding treatment plan. The patient expressed understanding and agreement with the above treatment plan. The patient is aware they should contact our office by phone for worsening of their current condition or the appearance of new symptoms. Compliance is encouraged with any medications and followup testing that is ordered. It is a privilege to be allowed the opportunity to participate in the urologic care of your patient. If you have any questions or concerns regarding treatment for the above conditions please do not hesitate to contact me. The office telephone contact is [phone]. This note is constructed in part using voice recognition software. While every effort has been made to ensure accuracy turbo electric operator errors may have been included. Yours sincerely, Philip Dahl MD Coding Level of Care Code Est Pt Level 4 (97900) Diagnoses Left testicular pain N50.812 Urgency-frequency syndrome N32.81 CPT Codes Post Residual Void - PVR CPT Code: 70658-Twft Void Residual by ultrasound ([id number])
--- OUTSIDE RECORDS SUMMARY | 2025-07-27 13:35 | XMS_ITS | Clinical Summary ---
Author Organization [employer] [facility] Address [address] 7[address] [place] [address] Care Team Providers Care Tire Maintenance Technician Name Role Phone Unavailable Primary Care Provider [...] Description 06/14/2025 2:00 PM EDT Office Visit [facility] ADULT [facility] [address] [place] [address] Michelle Armstrong 06/11/2025 2:15 PM EDT Office Visit [facility] ADULT [facility] [address] [place] [address] 06/11/2025 8:00 AM EDT Office Visit [facility] ADULT [facility]ENT[facility] [address] [place] [address] Og Rinaldi DMD 05/29/2025 1:30 PM EDT Office Visit [facility] ADULT DENTAL [address] [place] [address] Og Rinaldi, SHRADDHA Known health problems: none [...] AM EDT from Last 3 Months Insurance DENTAL-[facility] MEDICAID STAND ADULT
== END 2025-07-27 13:53 | disposition home or self-care (01) ==
LOC: HO.HUSH 13:18
PROVIDERS: PCP Internal Medicine; Visit Provider Urology
DX: N50.812 Left testicular pain (principal); N32.81 Overactive bladder; Z13.9 Encounter for screening, unspecified
CPT/HCPCS: 99214

== ENCOUNTER → 2025-07-27 13:17 | Outpatient (BNVA) | payer OTHER, SELFPAY | PROVIDERS: PCP Internal Medicine; Visit Provider Urology | DX: N50.812 Left testicular pain (principal); N32.81 Overactive bladder; R39.15 Urgency of urination; Z13.9 Encounter for screening, unspecified | CPT/HCPCS: 51798; 81003; 99212 ==

== ENCOUNTER 2025-08-03 13:12 | Outpatient (AMB) | payer OTHER, SELFPAY ==
--- NOTE | 2025-08-03 13:20 | MHC.OFFVIS ---
Intake Visit Reasons: dr rey referred for testicular pain and inj Intake Note: Patient is Present for follow up on Testicular pain and Injetction Urology Medication: Tamsulosin, Myrbetriq Blood Thinners: None PVR: [address] Freight Required: No Accompanied by: Self / Same As Patient Allergies codeine Allergy (Verified 08/03/25 13:21) Unknown duloxetine (From Cymbalta) Allergy (Verified 08/03/25 13:21) Unknown erythromycin base Allergy (Verified 08/03/25 13:21) Unknown gabapentin (From Neurontin) Allergy (Verified 08/03/25 13:21) Unknown HPI Comments Details: 08/23 here for evaluation left testicular pain. Prior varicocelectomy. Responded well to lidocaine block in December 2024 Would suggest microscopic denervation 85% success rate in setting of response to cord block 07/27/25--Anamaria is a 64-year-old male who is here for evaluation due to urinary frequency and urgency. He is prescribed tamsulosin and Myrbetriq to 50 mg. Reviewed PSA 06/09/2025 2.06 ng/mL. Urinalysis is negative. Bladder scan PVR 3 mL. He states that he is up 1-2 times at night to urinate. During the day he still has a few episodes urgency. He does admit he is able to wait at least 3 hours comfortably without a strong urge. I have encouraged to retrain and have timed voiding every 3-4 hours. The patient complains of right-sided pain. I have reviewed the renal ultrasound the right kidney is normal left kidney has a small cyst with mild dilatation of the ureter. I have discussed that the pain on the right side is not related. The patient also complains of left testicular pain, when he was evaluated in December Dr. Sherwood gave a lidocaine injection he states that was helpful. We will have him follow-up with Dr. Sherwood regarding this concern. Continued PSA screening and we will continue Myrbetriq and tamsulosin telehealth follow-up in 1 year with PSA. 01/18/2025-- Anamaria is a 64-year-old male who is here for evaluation due to urinary frequency and urgency. He was initially evaluated on 06/26/2024 and prescribed Myrbetriq 25 mg and tamsulosin 0.4 mg which he takes both medications in the evening. He states there has been some improvement in the urinary symptoms but he has started I urgency. I will increase the Myrbetriq to 50 mg daily. I have reviewed CT imaging which notes mild dilatation the ureters right greater than left, findings suggestive of anatomic variant no evidence of obstruction observed. The patient complains of right-sided pain and I have discussed that it is likely musculoskeletal related rather than related to the right kidney. The patient complains of persistent left groin pain history of varicocelectomy. Lidocaine cord block performed by Dr. Sherwood 1% lidocaine plain 10 mL. Will have nursing staff follow-up with patient tomorrow to discuss any change in groin pain symptoms after lidocaine block. 06/26/24--Anamaria is a 64-year-old male who is here for evaluation due to urinary frequency and urgency. 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 The patient states that he he has had right-sided pain and some constipation. He was seen by GI also. He states he had an ultrasound done and was told that on the right side the ureters were dilated. I have discussed further evaluation with ultrasound retroperitoneum. Will empirically trial Myrbetriq 25 mg daily and tamsulosin 0.4 mg at bedtime. 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, Housing: House Are you a primary respiratory care technician to a significant other at home: No Do you presently have visiting nurse or other home services: No Patient Tobacco Use Status: Never used Tobacco e-Cigarette/Vaping Use: Never Used service: No Current occupational status: employed Current occupation: Cognitive needs: No Hearing needs: No Vision needs: No Review of Systems Const Denies chills and Denies fever(s) Card Reports no additional complaints and Denies syncope Resp Denies cough GI Denies abdominal pain and Denies heartburn Reports as per HPI and Denies change in libido Neuro Denies syncope Psych Denies change in libido Endo Denies change in libido Physical Exam Const General: cooperative, healthy appearing, comfortable and no acute distress Orientation/consciousness: patient oriented x3 HEENT Face and sinus: Yes normal facial exam Mouth: moist mucous membranes Neck Neck: Yes normal visual inspection, Yes full ROM and Yes trachea midline Chest Chest palpation & inspection: normal inspection of the chest Resp Effort & Inspection: normal respiratory effort, able to speak in complete sentences and no respiratory distress GI Inspection: Yes normal to inspection Back/Spine/Pelvis Cervical Spine: normal cervical lordosis Thoracic/Lumbar Spine: thoracic and lumbar spine normal to inspection Skin General skin exam: no rashes or lesions noted Neuro General: patient oriented x3, gait normal, tone normal and moves all extremities Extrem General: Yes normal to inspection and Yes capillary refill normal Assessment & Plan Assessment & Plan (1) Left testicular pain: Code(s): N50.812 - Left testicular pain Category: Medical Plan Left testicular denervation Risks, benefits and alternatives to therapy were discussed. These include but are not limited to infection, bleeding, damage to local organs and tissues, need for further interventions. Anesthetic risks regarding cardiac arrhythmia, blood clots, and potential mortality were discussed. The patient understands the typical recovery time and the outpatient nature of the procedure. After consideration of these risks the patient gives full informed consent and they wish to move ahead with the procedure. Patient Instructions: This note is constructed using voice recognition software. While every effort has been made to ensure accuracy design painter errors may have been included. Imaging studies, laboratory and physical exam results were discussed and reviewed in detail. No major barriers to patient understanding were identified. An opportunity to ask questions regarding the treatment plan was provided. All questions were answered. The patient expressed understanding and agreement with the above treatment plan. The patient is aware they should contact our office by phone for worsening of their current condition or the appearance of new urologic symptoms. Compliance is encouraged with any medications and followup testing that is ordered. It is a privilege to participate in the urologic care of your patient. If you have any questions or concerns regarding treatment for the above conditions, or other urologic issues, please do not hesitate to contact me. The office telephone contact is [phone]. Sincerely, Dr Casper Sherwood MD, [facility] - Urology Compassionate Specialist Care for the Genitourinary System Coding Level of Care Code Est Pt Level 4 (85389) Diagnoses Left testicular pain N50.812
--- OUTSIDE RECORDS SUMMARY | 2025-08-03 13:26 | XMS_ITS | Clinical Summary ---
Author Organization [employer] [facility] Address [address] [place] [address] Care Team Providers Care Superintendent Commissary Name Role Phone Unavailable Primary Care Provider [...] Description 06/14/2025 2:00 PM EDT Office Visit [facility] ADULT DENTAL [address] [place] [address] Michelle Armstrong 06/11/2025 2:15 PM EDT Office Visit [facility] ADULT D[facility] [address] [place] [address] 06/11/2025 8:00 AM EDT Office Visit [facility] ADULT D[facility] [address] [place] [address] Og Rinaldi DMD 05/29/2025 1:30 PM EDT Office Visit [facility] ADULT DENT[facility] [address] [place] [address] Og Rinaldi, SHRADDHA Known health problems: none [...] AM EDT from Last 3 Months Insurance DENTAL-[facility] MEDICAID STAND ADULT
== END 2025-08-03 13:55 | disposition home or self-care (01) ==
LOC: HO.HUSH 13:13
PROVIDERS: PCP Internal Medicine; Visit Provider Urology
DX: N50.812 Left testicular pain (principal); Z13.9 Encounter for screening, unspecified
CPT/HCPCS: 99214

== ENCOUNTER → 2025-08-03 13:12 | Outpatient (BNVA) | payer OTHER, SELFPAY | PROVIDERS: PCP Internal Medicine; Visit Provider Urology | DX: B02.9 Zoster without complications (principal); N50.812 Left testicular pain | CPT/HCPCS: 51798; 81003; 99212 ==

== ENCOUNTER 2025-08-03 15:07 | Outpatient (AMB) | payer OTHER, SELFPAY ==
--- NOTE | 2025-08-03 15:15 | MHC.OFFWIV ---
Intake Vital Signs 08/03/25 15:16 Height 5 ft 8 in Weight 127 lb BMI 19.3 BP 104/72 Blood Pressure Location Lt brachial Position Sitting Pulse 92 Pulse Source Pulse Oximeter Temp 98.6 F Temp Source Oral Pulse Oximetry (%) 97 Oxygen Delivery Method Room Air Intake Visit Reasons: EP Shingles? Intake Note: pt presents with painful/burning rash on bilateral rib area and left arm pit Patient Tobacco Use Status: Never used Tobacco Allergies codeine Allergy (Verified 08/03/25 13:21) Unknown duloxetine (From Cymbalta) Allergy (Verified 08/03/25 13:21) Unknown erythromycin base Allergy (Verified 08/03/25 13:21) Unknown gabapentin (From Neurontin) Allergy (Verified 08/03/25 13:21) Unknown Do you need a note to return to daycare/school/sports/work: Yes HPI HPI Comments History of Present Illness Details History - The patient is a 65-year-old male presenting with a painful rash suspected to be Herpes Zoster (Shingles). - The rash began approximately two weeks ago with pain and the appearance of liquid-filled vesicles. - The fluid filled bumps appeared about a week ago and have since started to dry up. - The patient continues to experience pain in the left mid back and left axilla, described as burning, and has difficulty using deodorant due to sensitivity. - An allergy to gabapentin was noted, with previous reactions including rash and facial twitching. Physical Exam General: Cooperative, healthy appearing, comfortable, no acute distress and well developed Orientation: Patient oriented x3 Limitations: No limitations Head: Normal to inspection Ears: Hearing grossly normal bilaterally Nose: Normal External nose present Face and sinus: Normal facial exam Eyes: Appearance normal, both eyes and all related structures Neck: Normal visual inspection and Yes full ROM Respiratory: Normal respiratory effort and able to speak in complete sentences. 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, Housing: House Are you a primary medicare compliance auditor to a significant other at home: No Do you presently have visiting nurse or other home services: No Patient Tobacco Use Status: Never used Tobacco e-Cigarette/Vaping Use: Never Used service: No Current occupational status: employed 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 Cognitive needs: No Hearing needs: No Vision needs: No Review of Systems Const All systems reviewed & are unremarkable except as noted in HPI and below Physical Exam Vital Signs: Last Vital Signs Temp 98.6 F 08/03/25 15:16 Pulse 92 08/03/25 15:16 BP 104/72 08/03/25 15:16 Pulse Ox 97 08/03/25 15:16 Oxygen Delivery Method Room Air 08/03/25 15:16 BMI result Body Mass Index 19.3 Assessment & Plan Assessment & Plan (1) Shingles: Code(s): B02.9 - Zoster without complications Qualifiers: Herpes zoster complications: without complications Qualified Code(s): B02.9 - Zoster without complications Plan: Patient was informed and verbally consented to the use of an ambient scribe for clinic note documentation during this visit. Herpes Zoster (Shingles) - Prescribed valacyclovir to be taken every eight hours for seven days. - Discussed the limited benefit of antivirals at this stage. - Cannot use gabapentin due to allergy of rash and facial twitching. - if no improvement, pls follow up with PCP Medications: New valacyclovir 1,000 mg PO Q8H 21 tabs 0RF 7 days Coding Level of Care Code Est Pt Level 3 (58376) Diagnoses Herpes zoster without complication B02.9 Herpes zoster complications: without complications
[2025-08-03 15:16] VITALS: BP 104/72; PULSE 92; TEMP 37; O2SAT 97; BMI 19.3
== END 2025-08-03 15:34 | disposition home or self-care (01) ==
PROVIDERS: PCP Internal Medicine; Visit Provider Physician Assistant
DX: B02.9 Zoster without complications (principal)

== ENCOUNTER 2025-08-14 13:44 | Outpatient (AMB) | payer OTHER, SELFPAY ==
--- NOTE | 2025-08-14 13:45 | MHC.OFFVIS ---
Vital Signs 08/14/25 13:46 Height 5 ft 8 in Weight 125 lb 10.616 oz BMI 19.1 BP 113/76 Blood Pressure Location Lt brachial Position Sitting Pulse 73 Intake Visit Reasons: CIC, rt sided abd pain Intake Note: Ekra presents in the offie as as follow up. CC: States he is stll having the right sided pains, has a little improvement from last visit. Savita is helping with the constipation. States that he just had late breakfast right now and when he eats he has pains on the right that will increase a half hour. Journeyman Machinist Required: No Allergies codeine Allergy (Verified 08/20/25 10:35) Unknown duloxetine (From Cymbalta) Allergy (Verified 08/20/25 10:35) Unknown erythromycin base Allergy (Verified 08/20/25 10:35) Unknown gabapentin (From Neurontin) Allergy (Verified 08/20/25 10:35) Unknown HPI HPI CIC, rt sided abd pain: Details: Assessment & Plan (1) RUQ pain: Code(s): R10.11 - Right upper quadrant pain Category: Medical (2) Chronic idiopathic constipation: Code(s): K59.04 - Chronic idiopathic constipation Category: Medical (3) Epigastric pain: Code(s): R10.13 - Epigastric pain Category: Medical Plan History of Present Illness - The patient is a 65-year-old male presenting with follow-up for abdominal pain and constipation. - He previously experienced low right abdominal pain attributed to potential constipation and was treated with linaclotide 72 micro g and dicyclomine. - The patient developed nausea and abdominal pain possibly from dicyclomine, prompting its discontinuation. - Linaclotide resulted in occasional soft stools but was not consistently effective. - Additional gastric pain emerged and persisted post-dicyclomine use, and exacerbated post eating, in the past this had been come down by 40 mg of omeprazole. - Last colonoscopy in 2023 was normal, though preparation was inadequate. Patient was informed and verbally consented to the use of an ambient scribe for clinic note documentation during this visit. Patient Instructions - Begin the new dose of linaclotide 145 micro g on a day you are not working to observe effects and so that you do not have diarrhea unexpectedly.. - Discontinue using dicyclomine due to adverse effects experienced. This seem to just increase his pain and his GERD symptoms. - Continue taking omeprazole 40 mg daily as prescribed. - Return for follow-up in approximately four weeks or sooner if symptoms worsen. - Monitor for severe side effects like excessive diarrhea and seek medical advice if they occur. - Report any significant symptom changes, particularly related to abdominal or gastric pain. Medications: New linaclotide (Linzess) Take first thing in the morning with a full glass of water. 145 mcg PO QAM 30 caps 6RF K58.1 - Irritable bowel syndrome with constipation Refilled sennosides-docusate sodium 8.6-50 mg (Senna Plus) 2 tab-caps (2 x 8.6-50 mg) PO BEDTIME 60 caps 3RF K59.04 - Chronic idiopathic constipation On Hold linaclotide (Linzess) Hold Comment: Doctor's Order 72 mcg PO QAM 30 caps 6RF K59.04 - Chronic idiopathic constipation [facility] VISIT [facility] Medical History (Updated 08/20/25 @ 20:19 by Ibis Reynoso MD) Pre-op examination Asthma Urgency-frequency syndrome Epigastric pain Abdominal pain Annual physical exam Allergic rhinitis Sinusitis Calcaneus fracture, left Fall Surgical History (Updated 08/20/25 @ 20:22 by Ibis Reynoso MD) Hx of colonoscopy H/O sinus surgery History of carpal tunnel surgery History of ankle surgery Social History Household Members Other:: , 1 daughter, 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, Housing: House Are you a primary home care and home health aides teacher to a significant other at home: No Do you presently have visiting nurse or other home services: No Patient Tobacco Use Status: Never used Tobacco e-Cigarette/Vaping Use: Never Used service: No Current occupational status: employed 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 Cognitive needs: No Hearing needs: No Vision needs: No Review of Systems Const Denies fatigue, Denies fever(s), Denies night sweats, Denies poor appetite and Denies weight loss ENT Reports Normal hearing present, Denies dental pain, Denies dysphagia, Denies hearing loss, Denies mouth pain, Denies odynophagia, Denies throat swelling, Denies tongue swelling and Reports other (Dentition adequate) Card Reports no additional complaints Resp Reports no additional complaints GI Details: Denies abdominal pain, Denies melena, Reports bloating, Denies hematochezia, Reports constipation, Denies GI cramping, Denies dysphagia, Denies excessive flatus, Denies early satiety, Reports heartburn, Denies diarrhea, Denies nausea, Denies odynophagia, Denies vomiting and Denies hematemesis Skin/Breast Denies pruritus, Denies lesions, Denies rash and Denies jaundice Neuro Reports Normal hearing present and Denies Abnormal speech present Endo Denies fatigue Aller/Immun Denies throat swelling and Denies tongue swelling Physical Exam Vital Signs: Last Vital Signs Pulse 73 08/14/25 13:46 BP 113/76 08/14/25 13:46 BMI result Body Mass Index 19.1 Const General: cooperative, no acute distress, well developed and well groomed Nutritional Appearance: average body habitus and well nourished Orientation/consciousness: oriented to person, oriented to place and oriented to time Limitations: No language barrier and ambulation with cane HEENT Head: Yes normocephalic and Yes atraumatic Eyes General: appearance normal, both eyes and all related structures Pupils: Equal, round and reactive pupils present Neck Neck: Yes normal visual inspection and Yes no lymphadenopathy Thyroid: Thyroid normal Resp Effort & Inspection: normal respiratory effort and able to speak in complete sentences Auscultation: clear to auscultation bilaterally Cardio Rate: regular rate Rhythm: regular rhythm Heart sounds: Normal, physiologic split S2 sound present Peripheral pulses: radial pulses present and posterior tibial pulses present GI Inspection: No distended and No Abdominal panniculus present Palpation (GI): Soft to palpation, nontender, no guarding, not rigid and No hepatosplenomegaly present Percussion: Yes normal to percussion Auscultation: normal bowel sounds Rectal Exam - Male: Yes deferred Skin General skin exam: no rashes or lesions noted, turgor normal, skin not dry, no jaundice, No spider nevi and no striae Rashes: no rashes Nails: normal Neuro General: oriented to person, oriented to place and oriented to time Cranial nerves: Yes Equal, round and reactive pupils present and Yes Normal hearing present Speech: No Abnormal speech present Extrem General: Yes normal to inspection, No clubbing, No cyanosis and No edema Psych Appearance: grossly normal and well kempt Mental Status: mental status grossly normal Speech and movement: Normal speech and movement present Affect: normal affect Attitude: cooperative Thought process: Normal thought process present and not confabulating Thought content: Normal thought content present Insight: Limited insight present (Psych) Judgement: Limited judgement present (Psych) Assessment & Plan Assessment & Plan (1) Abdominal bloating: Code(s): R14.0 - Abdominal distension (gaseous) Category: Medical Plan current medication include senna, LInzess and omeprazole. - The patient is a 65-year-old male presenting with constipation and excessive intestinal gas. - Symptoms include persistent constipation with some relief noted with the use of Linaclotide, 145 micro g although the patient questions its adequacy. - Reports experiencing a pressure sensation that is relieved following bowel movements. - Gas and bloating symptoms are notable following food intake, persisting throughout the day without significant pain or identifiable inflammatory bowel disease. - I think all of this is related to incomplete evacuation and insufficient control of the constipation. With this we will increase the Linzess to 290 micro g daily and titrate to affect her side effect. We will also try adding simethicone and if insurance does not cover it he is instructed to buy it [id number]. Return office visit in 4 weeks Medications: New simethicone after meals 180 mg PO QID 120 caps 6RF 30 days R14.0 - Abdominal distension (gaseous) linaclotide (Linzess) 290 mcg PO QAM 30 caps 6RF 30 days Discontinued simethicone Discontinued Reason: Doctor's Order 125 mg PO QID PRN 120 tabs 6RF abdominal distention On Hold linaclotide (Linzess) Hold Comment: Doctor's Order 145 mcg PO QAM 30 caps 6RF K58.1 - Irritable bowel syndrome with constipation Coding Level of Care Code Est Pt Level 3 (60054) Diagnoses Abdominal bloating R14.0
[2025-08-14 13:46] VITALS: BP 113/76; PULSE 73; BMI 19.1
--- OUTSIDE RECORDS SUMMARY | 2025-08-14 17:36 | XMS_ITS | Clinical Summary ---
Author Organization [employer] [facility] Address [address] [place] [address] Care Team Providers Care Port Cdl A Driver Name Role Phone Unavailable Primary Care Provider [...] Description 06/14/2025 2:00 PM EDT Office Visit [facility] ADULT DENTAL [address] [place] [address] NathanielCasper shiine 06/11/2025 2:15 PM EDT [facility] Visit [facility] [address] [place] [address] Danilo Macdonald, DDS Dental caries (Primary Dx) 06/11/2025 8:00 AM EDT Office Visit [facility] ADULT DENT[facility] [address] [place] [address] Og Rinaldi DMD 05/29/2025 1:30 PM EDT Office Visit [facility] ADULT DENT[facility] [address] [place] [address] Og Rinaldi DMD Known health problems: none [...] COVID-19 Vaccine (1 - 2023-2 5 season) 2025 Influenza Vaccine (#1) 2025 Dental Oral Exam [...] DETAILED AND EXTENSIVE TREATMENT PLANNING Routine 06/11/2025 2:15 PM EDT 14 LIMITED ORAL EVALUATION - PROBLEM FOCUSED Routine 06/11/2025 2:15 PM EDT CASE PRESENTATION, DETAILED AND EXTENSIVE TREATMENT [...] AM EDT from Last 3 Months Insurance [facility] MEDICAID STAND ADULT
== END 2025-08-14 14:05 | disposition home or self-care (01) ==
LOC: HO.HGI 13:44
PROVIDERS: PCP Internal Medicine; Visit Provider Nurse Practitioner
DX: R14.0 Abdominal distension (gaseous) (principal)
CPT/HCPCS: 99213

== ENCOUNTER → 2025-08-14 13:44 | Outpatient (BNVA) | payer OTHER, SELFPAY | PROVIDERS: PCP Internal Medicine; Visit Provider Nurse Practitioner | DX: R14.0 Abdominal distension (gaseous) (principal); K59.04 Chronic idiopathic constipation | CPT/HCPCS: 99212 ==

== ENCOUNTER 2025-08-17 11:39 | Outpatient (REF) | payer OTHER, SELFPAY ==
--- OUTSIDE RECORDS SUMMARY | 2025-08-17 12:12 | XMS_ITS | Clinical Summary ---
Author Organization [employer] [facility] Address [address] [place] [address] Care Team Providers Care Clip On Sunglasses Inspector Name Role Phone Unavailable Primary Care Provider [...] Description 06/14/2025 2:00 PM EDT Office Visit [facility] ADULT DENTAL [address] [place] [address] NathanielCasper shiine 06/11/2025 2:15 PM EDT Office Visit [facility] ADULT DENTAL [address] [place] [address] Danilo Macdonald, DDS Dental caries (Primary Dx) 06/11/2025 8:00 AM EDT Office Visit [facility] ADULT DENTAL [address] [place] [address] Og Rinaldi DMD 05/29/2025 1:30 PM EDT Office Visit [facility] ADULT DENTAL [address] [place] [address] Og Rinaldi DMD Known health problems: none [...] EDT from Last 3 Months Insurance DENTAL-[facility] MEDICAID STAND ADULT
[2025-08-17 13:27] LABS: Appearance Urine Clear; Glucose Urine UA Negative (Negative); PH 7.0 (5.0-9.0); Specific Gravity - Urine 1.015 (1.005-1.025)
[2025-08-17 13:39] LABS: MANUAL DIFF FLAG NO
[2025-08-17 13:40] LABS: Hematocrit 41.6 % (42.0-52.0); Hemoglobin 14.5 g/dl (14.0-18.0); Imm Gran Abs Auto 0.02 X10*3/uL (0.00-0.03); Imm Gran Pct Auto 0.4 % (0.0-0.4); Lymphocytes Absolute Auto 1.3 X10*3/uL (1.2-4.9); Mean Corpuscular HGB Conc 34.9 g/dl (31.0-36.0); Mean Corpuscular Hemoglobin 32.4 pg (27.0-33.0); Mean Corpuscular Volume 93.1 fL (80.0-98.0); NRBC Abs Auto 0.000 X10*3/uL (0.0-0.012); NRBC Pct Auto 0.0 /100WBC (0.0-0.2); Platelet Count 218 X10*3/uL (160-400); Red Blood Count 4.47 X10*6/uL (4.60-5.80); White Blood Count 5.2 X10*3/uL (4.8-10.8)
[2025-08-17 13:55] LABS: Alanine Aminotransferase 27 U/L (0-40); Albumin Level 4.4 g/dL (3.5-5.0); Anion Gap 8 (12-20); Aspartate Amino Transferase 27 U/L (5-37); Blood Urea Nitrogen 13 mg/dL (9-16); Calcium 9.0 mg/dL (8.4-10.2); Carbon Dioxide 32 mmol/L (22-29); Chloride 106 mmol/L (96-108); Cholesterol 194 mg/dL (<200); Estimated Glomerular Filt Rate > 60; Potassium 4.4 mmol/L (3.3-5.1); Sodium 142 mmol/L (135-145); Total Protein 7.4 g/dL (6.5-8.0); Triglycerides 63 mg/dL (<150)
[2025-08-17 13:56] LABS: Alkaline Phosphatase 76 U/L (39-117); HDL Cholesterol 46 mg/dL (>40)
[2025-08-17 14:10] LABS: Prostate Specific Antigen 2.24 ng/mL (<0.05-4.0)
== END 2025-08-17 11:40 | disposition home or self-care (01) ==
LOC: HO.HMGCLDS 11:39
PROVIDERS: Urology; PCP Internal Medicine; Visit Provider Internal Medicine
DX: Z00.00 Encounter for general adult medical examination without abnormal findings (principal); R39.15 Urgency of urination; R35.1 Nocturia; Z12.5 Encounter for screening for malignant neoplasm of prostate
CPT/HCPCS: 36415; 80053; 80061; 81001; 84153; 85025

== ENCOUNTER 2025-08-20 10:22 | Outpatient (AMB) | payer OTHER, SELFPAY ==
--- NOTE | 2025-08-20 10:34 | MHC.PC.OV ---
Vital Signs 08/20/25 10:35 Height 5 ft 8 in Weight 128 lb BMI 19.5 BP 106/70 Blood Pressure Location Lt brachial Position Sitting Respiration 18 Pulse 75 Pulse Source Pulse Oximeter Temp 97.7 F Temp Source Oral Pulse Oximetry (%) 99 Oxygen Delivery Method Room Air Intake Visit Reasons: Annual PE Intake Note: Pt is here today for PE. Allergies codeine Allergy (Verified 08/20/25 10:35) Unknown duloxetine (From Cymbalta) Allergy (Verified 08/20/25 10:35) Unknown erythromycin base Allergy (Verified 08/20/25 10:35) Unknown gabapentin (From Neurontin) Allergy (Verified 08/20/25 10:35) Unknown Medication List - Last Reconciled 08/20/25 by Ibis Reynoso MD albuterol sulfate 90 mcg/actuation 2 puffs inhalation Q6H PRN dupilumab (Dupixent) mg subcut Q2W epinephrine 1 mg IM DAILY PRN fluticasone furoate-vilanterol 200-25 mcg/dose (Breo Ellipta) 1 inh inhalation DAILY fluticasone propionate 50 mcg/actuation sprays intranasal ipratropium bromide 2 sprays intranasal BID linaclotide (Linzess) 145 mcg PO QAM Held on 08/14/25. Instructions: Doctor's Order linaclotide (Linzess) 290 mcg PO QAM 30 days mirabegron ER (Myrbetriq) 50 mg PO DAILY naproxen 500 mg PO BID omeprazole 40 mg PO DAILY simethicone 180 mg PO QID 30 days tamsulosin (Flomax) 0.4 mg PO BEDTIME valacyclovir 1,000 mg PO Q8H 7 days Tobacco use date assessed: 08/20/25 Last assessed Fall Risk: 08/20/25 Dental Screening Dental Screen Date: 02/26/25 HPI Annual PE HPI Details Pt presents for PE PFSH Medical History (Updated 08/20/25 @ 20:19 by Ibis Reynoso MD) Pre-op examination Asthma Urgency-frequency syndrome Epigastric pain Abdominal pain Annual physical exam Allergic rhinitis Sinusitis Calcaneus fracture, left Fall Surgical History (Updated 08/20/25 @ 20:22 by Ibis Reynoso MD) Hx of colonoscopy H/O sinus surgery History of carpal tunnel surgery History of ankle surgery Social History Household Members Other:: , 1 daughter, 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 1. Little interest or pleasure in doing things: not at all 2. Feeling down, depressed, or hopeless: not at all 3. Trouble falling or staying asleep, or sleeping too much: not at all 4. Feeling tired or having little energy: not at all 5. Poor appetite or overeating: not at all 6. Feeling bad about yourself - or that you are a failure or have let yourself or your family down: not at all 7. Trouble concentrating on things, such as reading the newspaper or watching television: not at all 8. Moving or speaking so slowly that other people could have noticed. Or the opposite - being so fidgety or restless that you have been moving around a lot more than usual: not at all 9. Thoughts that you would be better off or of hurting yourself in some way: not at all Total score: 0 Depression Screening Interpretation: Negative Depression Screening Done: Yes Source: Developed by Drs. Kevin Guzman, Naye Kessler, Yoseph Baxter and colleagues, with an educational cholo from [employer]. Thrive Questionnaire Date Thrive assessed: 12/28/24 I am a: Patient What is your living situation today?: I have a steady place to live Within the past 12 months, did the food you bought not last and you didn't have the money to get more?: Never true Within the past 12 months, did you worry whether your food would run out before you got money to buy more?: Never true Do you have trouble paying for medicines?: No Do you have trouble getting transportation to medical appointments?: No Do you have trouble paying your heating and electricity bill?: No Do you have trouble taking care of your child, family member or friend?: No Do you have trouble with day-to-day activities such as bathing, preparing meals, shopping, managing finances, etc.?: No Are you currently unemployed and looking for a job?: I choose not to answer this question Are you interested in more education?: I choose not to answer this question Please select the resources that you would like help with: None Currently or been in a relationship where the following occur: No concerns reported THRIVE Score: 0 PATRICIA-7 AMB Questionnaire PATRICIA-7 Date PATRICIA - 7 assessed: 12/28/24 Feeling nervous, anxious, or on edge: 0 = Not at all Not being able to stop or control worryin = Not at all Worrying too much about different things: 0 = Not at all Trouble relaxin = Not at all Being so restless that it is hard to sit still: 0 = Not at all Becoming easily annoyed or irritable: 0 = Not at all Feeling afraid as if something awful might happen: 0 = Not at all Total PATRICIA-7 score (0-4 normal; 5-9 mild; 10-14 moderate; 15-21 severe): 0 Source: Developed by Drs. Kevin Guzman, Naye Kessler, Yoseph Baxter and colleagues, with an educational cholo from [employer]. Review of Systems Const All systems reviewed & are unremarkable except as noted in HPI and below Eyes Reports no additional complaints ENT Reports no additional complaints Card Reports no additional complaints Resp Reports no additional complaints GI Reports no additional complaints Reports no additional complaints Physical exam (Primary Care) Vital Signs: Last Vital Signs Temp 97.7 F 08/20/25 10:35 Pulse 75 08/20/25 10:35 Resp 18 08/20/25 10:35 BP 106/70 08/20/25 10:35 Pulse Ox 99 08/20/25 10:35 Oxygen Delivery Method Room Air 08/20/25 10:35 BMI result Body Mass Index 19.5 Tobacco/Smoking Status: Tobacco use Status Tobacco use date assessed 08/20/25 08/20/25 10:39 Patient Tobacco Use Status Never used Tobacco 08/20/25 10:39 e-Cigarette/Vaping Use Never Used 08/20/25 10:39 PHQ-9: PHQ-9 Score PHQ-9: Total score 0 08/20/25 13:13 Depression Screening Interpretation: Negative Thrive Assessment: Date of Thrive Assessment Date Thrive assessed 12/28/24 08/20/25 10:39 Currently or been in a relationship where the following occur: No concerns reported Const General: no acute distress HENMT Head: Yes normal to inspection Ears: TM's normal bilaterally Face and sinus: Yes normal facial exam Mouth: Normal oral and palatal mucosa present Neck Neck: Yes no lymphadenopathy and Yes supple Resp Effort & Inspection: normal respiratory effort Auscultation: clear to auscultation bilaterally Cardio Rhythm: regular rhythm Heart sounds: S1 normal heart sound present and S2 normal heart sound present GI Inspection: Yes normal to inspection Palpation (GI): Soft to palpation Percussion: Yes normal to percussion Auscultation: normal bowel sounds Coding Level of Care Code Est Pt Prev Care 40-64y(50807) Diagnoses Left ankle pain M25.572 Hydroureter N13.4 Urgency-frequency syndrome N32.81 Annual physical exam Z00.00 Assessment & Plan Assessment & Plan (1) Left ankle pain: Comment: s/p 3 surgeries in [place] last 2020, chronic left ankle pain for 13 years intolerant to gabapentin and duloxetine Code(s): M25.572 - Pain in left ankle and joints of left foot Category: Medical Plan: pt requested referral to pain management (2) Hydroureter: Comment: bilateral mild on renal US, CT urogram 12/2024 NEGATIVE FOR NEPHROLITHIASIS, URETERAL OBSTRUCTION Code(s): N13.4 - Hydroureter Category: Medical Plan: f/u with urology (3) Urgency-frequency syndrome: Comment: established with [facility] urology Code(s): N32.81 - Overactive bladder Category: Medical Plan: cont meds and f/u with urology (4) Annual physical exam: Code(s): Z00.00 - Encounter for general adult medical examination without abnormal findings Category: Medical Plan: Well-balanced diet regular physical activity discussed with the patient. He has colonoscopy last year but had a poor prep. For persistent constipation and right lower quadrant abdominal pain Cologuard will be checked. Patient will continue Linzess for IBS with constipation Orders: Referrals Cologuard Test Z12.11 - Encounter for screening for malignant neoplasm of colon, Z12.12 - Encounter for screening for malignant neoplasm of rectum Pain Management Referral M25.572 - Pain in left ankle and joints of left foot Medications: Refilled naproxen 500 mg PO BID 60 tabs 1RF
[2025-08-20 10:35] VITALS: BP 106/70; PULSE 75; RESP 18; TEMP 36.5; O2SAT 99; BMI 19.5
--- OUTSIDE RECORDS SUMMARY | 2025-08-20 12:41 | XMS_ITS | Clinical Summary ---
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 Name Role Phone Unavailable Primary Care Provider [...] Description 06/14/2025 2:00 PM EDT Office Visit [facility] ADULT DENTAL [address] [place] [address] NathanielCasper shiine 06/11/2025 2:15 PM EDT Office Visit [facility] [address] [place] [address] Danilo Macdonald, DDS Dental caries (Primary Dx) 06/11/2025 8:00 AM EDT Office Visit [facility] ADULT DENTAL [address] [place] [address] Og Rinaldi DMD 05/29/2025 1:30 PM EDT Office Visit [facility] ADULT DENTAL [address] [place] [address] Og Rinaldi DMD Known health problems: none [...] AM EDT from Last 3 Months Insurance D[facility]AL-[facility] MEDICAID STAND ADULT
== END 2025-08-20 11:35 | disposition home or self-care (01) ==
LOC: HO.HMCC 10:23
PROVIDERS: PCP Internal Medicine; Visit Provider Internal Medicine
DX: M25.572 Pain in left ankle and joints of left foot (principal); N13.4 Hydroureter; N32.81 Overactive bladder; Z00.00 Encounter for general adult medical examination without abnormal findings

== ENCOUNTER → 2025-08-20 10:22 | Outpatient (BNVA) | payer OTHER, SELFPAY | PROVIDERS: PCP Internal Medicine; Visit Provider Internal Medicine | DX: Z00.00 Encounter for general adult medical examination without abnormal findings (principal); M25.572 Pain in left ankle and joints of left foot; N13.4 Hydroureter; N32.81 Overactive bladder | CPT/HCPCS: 99396 ==

== ENCOUNTER 2025-09-13 09:27 | Outpatient (AMB) | payer OTHER, SELFPAY ==
--- NOTE | 2025-09-13 09:28 | A.OFFVIS_ITS ---
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 The patient underwent three surgeries in 2013, 2019, and 2020, including procedures for cavovarus deformity, lateral sliding calcaneal biplanar osteotomy, plantar fascia release, gastrocnemius lengthening, tarsometatarsal dorsiflexion arthrodesis, and joint debridement. Despite these interventions, the patient continues to experience constant stabbing and throbbing pain, exacerbated by movement and walking. The patient has tried physical therapy and naproxen without significant relief. He also tried gabapentin and duloxetine in the past which he stopped due to adverse effects, including significant GI upset. The pain has led to the use of crutches and a cane, resulting in secondary pain in the shoulders and hands due to overuse. The patient also reports symptoms consistent with polyradiculopathy, including chronic denervation affecting muscles in the left lower extremity, as indicated by an EMG study. There is a concern for spinal stenosis, and correlation with lumbar imaging such as MRI is advised. Additionally, the patient experiences constipation which at times contributes to low back pain. - Onset: Began in 2013 after a fall through a collapsed tile. - Quality: Constant stabbing, numbness and throbbing pain. - Location: Left ankle and foot. - Radiation: Pain radiates to the back of the leg. - Exacerbating factors: Movement and walking. - Relieving factors: None noted, tried naproxen - Interference: Affects walking, requires use of crutches and cane, impacts daily activities and quality of life. - Affect: Pain impacts mood, social activities, and quality of life. - Analgesia: Current pain level is 9/10, previously tried naproxen without relief. - Adverse Effects: Allergic reaction to gabapentin, duloxetine and codeine, causing rashes and gastrointestinal upset. - Activities of Daily Living: Pain affects walking, requires use of assistive devices, impacts sleep and daily functioning. - Aberrant Drug Related Behaviors: None reported. 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 - Neurological: Reports numbness and tingling in the left foot, back pain radiating to the back of the leg lifting left leg. - Gastrointestinal: Reports constipation and abdominal pain. All systems reviewed & are unremarkable except as noted in HPI and below Physical Exam Vital Signs: Last Vital Signs Pulse 79 09/13/25 09:37 BP 137/79 09/13/25 09:37 Pulse Ox 98 09/13/25 09:37 Oxygen Delivery Method Room Air 09/13/25 09:37 BMI result Body Mass Index 19.0 General: Appears afebrile. Alert and oriented. Mood and affect appropriate. Follows and participates in conversation appropriately. Respiratory effort is unlabored. No cough. Able to transition from sit to stand unassisted. Ambulates with normal heel strike and toe off on the right, increased pain with heel/toe standing on the left. General: Yes no CVA tenderness Back/Spine/Pelvis Other: Limited lumbar ROM due to pain. Lumbar flexion and extension reproduces [id number] pain. Demonstrates 5/5 strength of quadriceps bilaterally as well as flexion/dorsiflexion of bilateral feet against resistance. 2+ pedal pulses bilaterally. Straight leg rise with dorsiflexion positive on the left. +2 patellar and +1 right, not tested on left due to pain achilles reflexes. Facet loading test positive bilaterally. No groin pain with I/E hip rotations. Valsalva maneuver negative. Back: no CVA tenderness Cervical Spine: cervical ROM normal, cervical muscular tenderness and No Cervical spine tenderness Thoracic/Lumbar Spine: thoracic and lumbar spine normal to inspection, No Thoracic/lumbar spine scar(s), Lasegue's sign positive on the left (L5-S1 distribution) and localized, pain with thoraco-lumbar ROM, No thoracic spinal tenderness and No lumbar spinal tenderness Sacroiliac joints: bilaterally nontender Extrem General: Yes capillary refill normal, Yes no calf tenderness, No clubbing and No cyanosis Right upper extremity: shoulder/upper arm (Increased pain with I/E rotations) Details: normal to inspection, tenderness Location: of the A-C joint and over the subacromial bursa and crepitus; no swelling, no ecchymosis and no unusual warmth Left upper extremity: shoulder/upper arm Details: inspection abnormal, tenderness Location: of the A-C joint, normal ROM and crepitus; no swelling, no ecchymosis and no unsual warmth Left lower extremity: ankle Details: tenderness Location: of the lateral malleolus and anterolaterally and swelling Details: laterally and foot (Limited ROM due to pain, reports numbness left foot/leg) Details: normal capillary refill, tenderness (global left foot and left ankle, multiple well healed LLE and foot incisions, including plantar) and crepitus; no unusual warmth, no ecchymosis and no puncture wound Results Reviewed Results Reviewed: Assessment & Plan Assessment & Plan (1) Bilateral shoulder pain: Code(s): M25.511 - Pain in right shoulder; M25.512 - Pain in left shoulder Category: Medical (2) Lumbar radiculopathy: Code(s): M54.16 - Radiculopathy, lumbar region Category: Medical (3) Lumbosacral spondylosis: Code(s): M47.817 - Spondylosis without myelopathy or radiculopathy, lumbosacral region Category: Medical (4) Pain in left ankle and joints of left foot: Code(s): M25.572 - Pain in left ankle and joints of left foot Category: Medical (5) History of ankle surgery: Comment: 2018, 2019, 2020 Code(s): Z98.890 - Other specified postprocedural states Category: Surgical Plan The plan includes obtaining a lumbar MRI to evaluate for spinal stenosis and follow up with the EMG findings of lumbar radiculopathy. A diagnostic left sciatic and saphenous nerve blocks with local and US guidance are planned to assess the potential benefit of peripheral nerve stimulation for pain management. Expectations, risks and benefits were reviewed. Patient is aware he will be contacted to schedule this procedure. Shoulder and hand pain management includes trying Tylenol Arthritis and considering shoulder x-rays to assess for underlying pathology. All questions and concerns have been answered and patient agreed with the treatment plan. Follow up for MRI/xray results and sooner as needed. Patient was informed and verbally consented to the use of an ambient scribe for clinic note documentation during this visit. Orders: Orders 2 XR shoulder LT min 2V 09/13/25 M25.511 - Pain in right shoulder, M25.512 - Pain in left shoulder XR shoulder RT min 2V 09/13/25 M25.511 - Pain in right shoulder, M25.512 - Pain in left shoulder MR lumbar spine wo con Today M47.817 - Spondylosis without myelopathy or radiculopathy, lumbosacral region, M54.16 - Radiculopathy, lumbar region Coding Level of Care Code New Pt Level 4 (93883) Diagnoses Bilateral shoulder pain M25.511; M25.512 Lumbar radiculopathy M54.16 Lumbosacral spondylosis M47.817 Pain in left ankle and joints of left foot M25.572 History of ankle surgery Z98.890
[2025-09-13 09:37] VITALS: BP 137/79; PULSE 79; O2SAT 98; BMI 19.0
--- OUTSIDE RECORDS SUMMARY | 2025-09-13 10:46 | XMS_ITS | Clinical Summary ---
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
== END 2025-09-13 10:17 | disposition home or self-care (01) ==
PROVIDERS: PCP Internal Medicine; Visit Provider Nurse Practitioner Family
DX: M25.511 Pain in right shoulder (principal); M25.512 Pain in left shoulder; M54.16 Radiculopathy, lumbar region; M47.817 Spondylosis without myelopathy or radiculopathy, lumbosacral region; M25.572 Pain in left ankle and joints of left foot; Z98.890 Other specified postprocedural states
CPT/HCPCS: 99204

== ENCOUNTER → 2025-09-13 09:27 | Outpatient (BNVA) | payer OTHER, SELFPAY | PROVIDERS: PCP Internal Medicine; Visit Provider Nurse Practitioner Family | DX: M25.572 Pain in left ankle and joints of left foot (principal); M25.511 Pain in right shoulder; M25.512 Pain in left shoulder; M54.16 Radiculopathy, lumbar region; M47.817 Spondylosis without myelopathy or radiculopathy, lumbosacral region; Z98.890 Other specified postprocedural states | CPT/HCPCS: 99202 ==

== ENCOUNTER 2025-09-14 15:27 | Outpatient (AMB) | payer OTHER, SELFPAY ==
--- NOTE | 2025-09-14 15:45 | MHC.OFFVIS ---
Vital Signs 09/14/25 15:54 Height 5 ft 8 in Weight 127 lb 6.835 oz BMI 19.4 BP 141/79 H Blood Pressure Location Lt brachial Position Sitting Pulse 87 Intake Visit Reasons: 4 wks f/u CIC, RUQ PAIN Intake Note: Ekra presents to in office follow up of CIC and RUQ pain. Business Technology Architect Required: No Accompanied by: Self / Same As Patient Allergies codeine Allergy (Verified 09/14/25 16:06) Unknown duloxetine (From Cymbalta) Allergy (Verified 09/14/25 16:06) Unknown erythromycin base Allergy (Verified 09/14/25 16:06) Unknown gabapentin (From Neurontin) Allergy (Verified 09/14/25 16:06) Unknown HPI HPI 4 wks f/u CIC, RUQ PAIN: Details: Assessment & Plan (1) Abdominal bloating: Code(s): R14.0 - Abdominal distension (gaseous) Category: Medical Plan current medication include senna, LInzess and omeprazole. - The patient is a 65-year-old male presenting with constipation and excessive intestinal gas. - Symptoms include persistent constipation with some relief noted with the use of Linaclotide, 145 micro g although the patient questions its adequacy. - Reports experiencing a pressure sensation that is relieved following bowel movements. - Gas and bloating symptoms are notable following food intake, persisting throughout the day without significant pain or identifiable inflammatory bowel disease. - I think all of this is related to incomplete evacuation and insufficient control of the constipation. With this we will increase the Linzess to 290 micro g daily and titrate to affect her side effect. We will also try adding simethicone and if insurance does not cover it he is instructed to buy it [id number]. Return office visit in 4 weeks Medications: New simethicone after meals 180 mg PO QID 120 caps 6RF 30 days R14.0 - Abdominal distension (gaseous) linaclotide (Linzess) 290 mcg PO QAM 30 caps 6RF 30 days Discontinued simethicone Discontinued Reason: Doctor's Order 125 mg PO QID PRN 120 tabs 6RF abdominal distention On Hold linaclotide (Linzess) Hold Comment: Doctor's Order 145 mcg PO QAM 30 caps 6RF K58.1 - Irritable bowel syndrome with constipation 8 TODAY'S VISIT [facility] Medical History Pre-op examination Asthma Urgency-frequency syndrome Epigastric pain Abdominal pain Annual physical exam Allergic rhinitis Sinusitis Calcaneus fracture, left Fall Surgical History Hx of colonoscopy H/O sinus surgery History of carpal tunnel surgery History of ankle surgery Social History Household Members Other:: , 1 daughter, 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, Housing: House Are you a primary care coordinator to a significant other at home: No Do you presently have visiting nurse or other home services: No Patient Tobacco Use Status: Never used Tobacco e-Cigarette/Vaping Use: Never Used service: No Current occupational status: employed 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 Cognitive needs: No Hearing needs: No Vision needs: No Review of Systems Const Denies fatigue, Denies fever(s), Denies night sweats, Denies poor appetite and Denies weight loss ENT Reports Normal hearing present, Denies dental pain, Denies dysphagia, Denies hearing loss, Denies mouth pain, Denies odynophagia, Denies throat swelling, Denies tongue swelling and Reports other (Dentition adequate) Card Reports no additional complaints Resp Reports no additional complaints GI Details: Reports abdominal pain, Denies melena, Denies bloating, Denies hematochezia, Reports constipation, Reports GI cramping, Denies dysphagia, Denies excessive flatus, Denies early satiety, Denies heartburn, Denies diarrhea, Denies nausea, Denies odynophagia, Denies vomiting and Denies hematemesis Skin/Breast Denies pruritus, Denies lesions, Denies rash and Denies jaundice Neuro Reports Normal hearing present and Denies Abnormal speech present Endo Denies fatigue Aller/Immun Denies throat swelling and Denies tongue swelling Physical Exam Vital Signs: Last Vital Signs Pulse 87 09/14/25 15:54 BP 141/79 H 09/14/25 15:54 BMI result Body Mass Index 19.4 Const General: cooperative, no acute distress, well developed and well groomed Nutritional Appearance: average body habitus and well nourished Orientation/consciousness: oriented to person, oriented to place and oriented to time Limitations: No language barrier HEENT Head: Yes normocephalic and Yes atraumatic Eyes General: appearance normal, both eyes and all related structures Pupils: Equal, round and reactive pupils present Neck Neck: Yes normal visual inspection and Yes no lymphadenopathy Thyroid: Thyroid normal Resp Effort & Inspection: normal respiratory effort and able to speak in complete sentences Auscultation: clear to auscultation bilaterally Cardio Rate: regular rate Rhythm: regular rhythm Heart sounds: Normal, physiologic split S2 sound present Peripheral pulses: radial pulses present and posterior tibial pulses present GI Inspection: No distended and No Abdominal panniculus present Palpation (GI): Soft to palpation, nontender, no guarding, not rigid and No hepatosplenomegaly present Percussion: Yes normal to percussion Auscultation: normal bowel sounds Rectal Exam - Male: Yes deferred Skin General skin exam: no rashes or lesions noted, turgor normal, skin not dry, no jaundice, No spider nevi and no striae Rashes: no rashes Nails: normal Neuro General: oriented to person, oriented to place and oriented to time Cranial nerves: Yes Equal, round and reactive pupils present and Yes Normal hearing present Speech: No Abnormal speech present Extrem General: Yes normal to inspection, No clubbing, No cyanosis and No edema Psych Appearance: grossly normal and well kempt Mental Status: mental status grossly normal Speech and movement: Normal speech and movement present Affect: normal affect Attitude: cooperative Thought process: Normal thought process present and not confabulating Thought content: Normal thought content present Insight: Good insight present (Psych) Judgement: Good judgement present (Psych) Assessment & Plan Assessment & Plan (1) RUQ pain: Code(s): R10.11 - Right upper quadrant pain Category: Medical Plan His current medication include simethicone, senna, LInzess 290 and omeprazole. He finds that the Linzess 290 is helping him evacuate better, initially his stools were extremely hard, he would not move them but once or twice a week and he had to really strain to evacuate. He still feels like he is not having complete evacuation, but he does feel right after she defecates a relief from the feeling of pain and pressure on the right side of his abdomen. However, he will have a return of the pain/pressure, although not as bad as in the past, after eating and he eats twice a day. I think this is going in the right direction. At this point we are going to continue the Linzess 290 and add senna (which he had in the past) 1-2 tablets at night to see if we can get better evacuation and better pain control. I would also like him now to start layering and some dicyclomine to see if cramping is part of the problem. He is understandable and agreeable to this. The only other CAT scan finding was a dilated right ureter of uncertain significance related to his symptoms set. This has been investigated in the past by urologist. Overall he is happy that he is making progress. Return office visit in 8 weeks Medications: New sennosides (Senna Laxative) 17.2 mg (2 x 8.6 mg) PO BEDTIME 60 tabs 6RF dicyclomine 10 mg PO BID 60 caps 6RF R10.11 - Right upper quadrant pain Discontinued linaclotide (Linzess) Take first thing in the morning with a full glass of water. Discontinued Reason: Doctor's Order 145 mcg PO QAM 30 caps 6RF K58.1 - Irritable bowel syndrome with constipation Coding Level of Care Code Est Pt Level 3 (99660) Diagnoses RUQ pain R10.11
[2025-09-14 15:54] VITALS: BP 141/79; PULSE 87; BMI 19.4
--- OUTSIDE RECORDS SUMMARY | 2025-09-14 17:55 | XMS_ITS | Clinical Summary ---
Author Organization [employer] [facility] Address [address] [place] [address] Care Team Providers Care Fitness Coordinator Name Role Phone Unavailable Primary Care Provider [...] Description 06/14/2025 2:00 PM EDT Office Visit [facility] [address] [place] [address] Michelle Armstrong from Last 3 Months Social [...] ADULT Routine 06/14/2025 2 :00 PM EDT INTRAORAL - COMPLETE SERIES OF RADIOGRAPHIC IMAGES Routine 05/29/2025 1:30 PM EDT PERIODIC ORAL EVALUATION - ESTABLISHED PATIENT Routine 05/29/2025 1:30 PM EDT from Last 3 Months or Most Recently Relevant to Health Maintenance [facility]
== END 2025-09-14 16:16 | disposition home or self-care (01) ==
LOC: HO.HGI 15:28
PROVIDERS: PCP Internal Medicine; Visit Provider Nurse Practitioner
DX: R10.11 Right upper quadrant pain (principal)
CPT/HCPCS: 99213

== ENCOUNTER → 2025-09-14 15:27 | Outpatient (BNVA) | payer OTHER, SELFPAY | PROVIDERS: PCP Internal Medicine; Visit Provider Nurse Practitioner | DX: K58.1 Irritable bowel syndrome with constipation (principal); R10.11 Right upper quadrant pain | CPT/HCPCS: 99212 ==

== ENCOUNTER 2025-10-15 08:46 | Day surgery (SDC) | payer OTHER, SELFPAY ==
--- NOTE | 2025-10-10 14:31 | HO.ANESPROP2 ---
Documented by User: Sarah Marie NP 10/10/25 14:34 HPI - Anesthesia Eval Consult details Narrative: 65yo M for Left Denervation Testicle PMFSH Active Problems Active Problems: All Active Problems History of ankle surgery (Acute) Pain in left ankle and joints of left foot (Acute) Lumbosacral spondylosis (Acute) Lumbar radiculopathy (Acute) Bilateral shoulder pain (Acute) Hx of colonoscopy (Acute) Abdominal bloating (Acute) Shingles (Acute) Urgency-frequency syndrome (Acute) Chronic anxiety (Acute) Asthma (Acute) Annual physical exam (Acute) Bronchitis (Acute) Right-sided back pain (Acute) Left testicular pain (Acute) Cough (Acute) Allergic rhinitis (Acute) Hydroureter (Acute) Sinusitis (Acute) Otitis media (Acute) Chest pain (Acute) Otalgia, right ear (Acute) URI (upper respiratory infection) (Acute) RUQ pain (Acute) Lesion of mouth (Acute) Left ankle pain (Acute) Hydronephrosis, right (Acute) Nocturia (Acute) Urinary urgency (Acute) Chronic idiopathic constipation (Acute) H/O urinary frequency (Acute) Peroneal tendinitis, right leg (Acute) Past Medical History Medical History Varicocele Pre-op examination Asthma Urgency-frequency syndrome Epigastric pain Abdominal pain Annual physical exam Allergic rhinitis Sinusitis Calcaneus fracture, left Fall Surgical History Surgical History H/O thumb surgery Hx of colonoscopy H/O sinus surgery History of carpal tunnel surgery History of ankle surgery History of Problems with Anesthesia: No Social History Social History Household Members Other:: , 1 daughter, 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, Housing: House Are you a primary critical care unit manager to a significant other at home: No Do you presently have visiting nurse or other home services: No Patient Tobacco Use Status: Never used Tobacco e-Cigarette/Vaping Use: Never Used Use of substances other than those prescribed or required for medical reasons: No Are you DNR?: No Advance Directives: No Advance Directives Information Provided: Yes service: No Current occupational status: employed 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 Cognitive needs: No Hearing needs: No Vision needs: No Meds Allergies Allergy/AdvReac Type Severity Reaction Status Date / Time codeine Allergy Intermediate Rash Verified 10/15/25 09:01 duloxetine (From Cymbalta) Allergy Intermediate Rash Verified 10/15/25 09:01 erythromycin base Allergy Intermediate Rash Verified 10/15/25 09:01 gabapentin (From Neurontin) Allergy Intermediate Palpitation Verified 10/15/25 09:01 s Home Medications ?Medication ?Instructions ?Recorded ?Confirmed ?Last Taken ?Type fluticasone propionate 50 spray intranasal 07/28/24 08/20/25 Unknown History mcg/actuation nasal spray,suspension ipratropium bromide 21 mcg (0.03 2 spray intranasal BID 01/18/25 10/11/25 Unknown History %) nasal spray dupilumab 300 mg/2 mL subcutaneous mg subcut Q2W 08/03/25 08/20/25 Unknown History syringe ([employer]) epinephrine 0.3 mg/0.3 mL 1 mg IM DAILY PRN Allergic Reaction 08/03/25 10/11/25 Unknown History injection, auto-injector Exam Pertinent Lab Results Pertinent Lab Results: Laboratory Tests 08/17/25 11:43 WBC 5.2 Hgb 14.5 Hct 41.6 L Plt Count 218 D Sodium 142 Potassium 4.4 Chloride 106 Carbon Dioxide 32 H BUN 13 Creatinine 1.06 Assessment and Plan Assessment Anesthesia Assessment: Chart Reviewed Final Anesthetic Review History of Problems with Anesthesia: No Documented by User: Salina Fabian MD 10/15/25 09:21 [facility] Past Medical History Medical History Varicocele Pre-op examination Asthma Urgency-frequency syndrome Epigastric pain Abdominal pain Annual physical exam Allergic rhinitis Sinusitis Calcaneus fracture, left Fall Family History Family history of problems with anesthesia: No Surgical History Surgical History H/O thumb surgery Hx of colonoscopy H/O sinus surgery History of carpal tunnel surgery History of ankle surgery Social History Social History Household Members Other:: , 1 daughter, 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, 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: House Are you a primary critical care unit manager to a significant other at home: No Do you presently have visiting nurse or other home services: No Patient Tobacco Use Status: Never used Tobacco e-Cigarette/Vaping Use: Never Used Use of substances other than those prescribed or required for medical reasons: No Are you DNR?: No Advance Directives: No Advance Directives Information Provided: Yes service: No Current occupational status: employed 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 Cognitive needs: No Hearing needs: No Vision needs: No Meds Allergies Allergy/AdvReac Type Severity Reaction Status Date / Time codeine Allergy Intermediate Rash Verified 10/15/25 09:01 duloxetine (From Cymbalta) Allergy Intermediate Rash Verified 10/15/25 09:01 erythromycin base Allergy Intermediate Rash Verified 10/15/25 09:01 gabapentin (From Neurontin) Allergy Intermediate Palpitation Verified 10/15/25 09:01 s Home Medications ?Medication ?Instructions ?Recorded ?Confirmed ?Last Taken ?Type fluticasone propionate 50 spray intranasal 07/28/24 08/20/25 Unknown History mcg/actuation nasal spray,suspension ipratropium bromide 21 mcg (0.03 2 spray intranasal BID 01/18/25 10/11/25 Unknown History %) nasal spray dupilumab 300 mg/2 mL subcutaneous mg subcut Q2W 08/03/25 08/20/25 Unknown History syringe (Dupixent) epinephrine 0.3 mg/0.3 mL 1 mg IM DAILY PRN Allergic Reaction 08/03/25 10/11/25 Unknown History injection, auto-injector Exam Airway Mallampati Class: II TM Dist: >3cm Neck ROM: Full Heart: rrr Lungs: cta Assessment and Plan Assessment Anesthesia Assessment: Anesthesia Plan Discussed Final Anesthetic Review Family History of Problems with Anesthesia: No NPO: Yes ASA Class: III Final Preanesthetic Review: No Changes in Pt Med Stat, Meds/Allgs Chart Reviewed, Consent Obtained/Reviewed and Anes Risks/Benef Reviewed Patient Risk: Low Procedure Risk: Low Anesthetic Plan Anesthetic Plan: GA, MAC: and Agree w/ Assess. and Plan Disposition: Standard PACU
[2025-10-11 15:34] VITALS: BMI 19.4
[2025-10-15] VITALS (7 sets, daily range): BP systolic 123–134; BP diastolic 78–94; PULSE 54–76; RESP 10–17; TEMP 36.3–36.7; O2SAT 98–100; BMI 18.5
[2025-10-15] MEDS: Lactated Ringers 1,000 ML 100 ML IVCONT (09:23)
--- NOTE | 2025-10-15 09:43 | MHC.SHP ---
Pre-Procedural Eval Section A - 24 Hr Update-Section A only Date of Service: 10/15/25 The patient is an INPATIENT: No Changes since office visit: No Cold of Flu in the past 2 weeks, No New Medical Problems, No Changes in Medication and No Patient answered all questions The patient has been examined within 24 hours of the surgical procedure. The History & Physical has been completed within 30 days and I have reviewed it.: No Section B - Complete if H&P > 30 days Chief Complaint: Left testicular pain Details of Present Illness: Persistent pain on left testicle did respond to cord block - Microscopic left testicular denervation Relevant Family History (Specify if Yes): No Relevant Social History: None Present Medications: see Short Stay Collaborative assessment Medical History: No relevant PMH History of Previous Operations: No relevant previous surgery Allergies: Allergies Allergy/AdvReac Type Severity Reaction Status Date / Time codeine Allergy Intermediate Rash Verified 10/15/25 09:01 duloxetine (From Cymbalta) Allergy Intermediate Rash Verified 10/15/25 09:01 erythromycin base Allergy Intermediate Rash Verified 10/15/25 09:01 gabapentin (From Neurontin) Allergy Intermediate Palpitation Verified 10/15/25 09:01 s Review of Systems Sugical H&P ROS: Negative: Constitution, Cardiovascular, Respiratory, Neurological, Psychiatric, Hem-Onc, Allergic/Immunologic, Gastrointestinal, Genitourinary, Musculoskeletal, Integumentary, Endocrine and Eyes/Ears/Nose/Throat Exam Surgical H&P Exam: Normal: HEENT, Normal: Heart, Normal: Lungs, Normal: Extremities, Normal: Abdomen, Normal: Skin and Normal: Neurological Plan Diagnosis/Plan: Unchanged (Left microscopic testicular denervation) I have reviewed the history and physical and performed a pertinent physical examination on my patient. No changes have occurred unless specified. Time Spent With Patient Time: Total time managing care of this patient today ____ minutes.
--- NOTE | 2025-10-15 11:16 | P.OP_ITS ---
Operative Note Operative Note Date of Service: 10/15/25 Narrative: PreOperative Diagnosis: Left persistent testicular pain Post Operative Diagnosis: Same Procedure: Left microscopic inguinal denervation Surgeon: Dr Casper Sherwood Anesthesia: General Indications for procedure: Persistent left testicular pain. In the office responded well to local anesthetic infiltration in the cord. Was offered microscopic inguinal cord denervation. Understands this is 80% successful and primary risk is loss of testicle. Procedure: After informed consent was verified the patient was brought to the operating room and placed in a supine position. Anesthesia was administered per protocol. The patient was shaved and prepped and draped in a sterile fashion. Safety pause time-out was performed. Antibiotics had been given. The left inguinal canal was palpated. This was marked and then a 4 cm incision was marked approximately 1 cm distal to the inguinal canal. The skin was infiltrated with local anesthetic. Using a 15 blade skin was incised and dissection was performed in the subcutaneous tissue. Babyoye retractors were used. Dissection was performed using a snape until inguinal cord was visualised. A peanut was used to help expose the cord. Using a isaura clap the cord was delivered through the incision to the skin surface. A tongue depressor was then used to elevate the cord from the incision. Dissection and denervation were performed on the 3 identified areas including the cremasteric muscle layer, sonny vasal tissues, and the posterior periarterial - lipomatous tissue. The operating microscope was brought into place. Dissection was then performed on the cord. Cremasteric muscle fibers surrounding the cord were all dissected and transected. This was performed using bipolar cautery and scissors. The overlying tissue was removed and the cord packets exposed. Fascia was cauterized and dissected from the packet. The vas deferens packet was dissected. The primary vascular packet was then tagged with a vessel loop and retracted from the field. The vas deferens packet was identified and the cord was isolated. Using an ocular blade the cord was denervated for approximately 1-1.5 cm. The blade was swept across the surface of the vas deferens small bleeding areas were controlled using bipolar cautery. Attention was then directed to the posterior perivessel packet. Using the Doppler ultrasound arterial flow was confirmed. The perivessel arterial fat was then dissected and incised using the bipolar cautery. Care was taken to leave all veins and feeding arterial vessels intact. Doppler ultrasound was used completion of the dissection to confirm flow. When this was complete the cord was examined. The tongue depressor was removed and the cord allowed to sit in its normal position. The area was irrigated with saline. Reapproximation of deep tissue was performed using interrupted 3-0 Vicryl. Skin was reapposed using a 4-0 running Monocryl. Incisions were closed with Dermabond He tolerated the procedure well and was extubated in operating room and transferred in stable condition to the recovery area. Instrument and sponge count correct at end of case.
== END 2025-10-15 12:58 | disposition home or self-care (01) ==
PROVIDERS: PCP Internal Medicine; Visit Provider Urology
PROC: (CPT 64722; principal; 2025-10-15 10:10)
DX: N50.812 Left testicular pain (principal); R35.0 Frequency of micturition; R39.15 Urgency of urination
CPT/HCPCS: 64722; 55899; J0131; J0690; J2003; J2704; J2795; J3010

== ENCOUNTER → 2025-10-15 08:46 | Outpatient (BNV) | payer OTHER, SELFPAY | PROVIDERS: PCP Internal Medicine; Visit Provider Urology | DX: N50.812 Left testicular pain (principal) | CPT/HCPCS: 64722; 93975 ==

== ENCOUNTER 2025-11-15 10:36 | Outpatient (REF) | payer OTHER, SELFPAY ==
--- NOTE | ~2025-11-15 | XR_ITS ---
EXAMINATION: XR SHOULDER, EDI 3V CLINICAL INFORMATION: M25.511 - Pain in right shoulder COMPARISON: None available. TECHNIQUE: AP external rotation, Grashey, scapular Y, and axillary views of each shoulder were obtained. FINDINGS: LEFT SHOULDER: Normal bone mineralization. No fracture, dislocation, or suspicious bone lesion. Normal alignment. The glenohumeral joint is normal. The AC joint is normal. There is a type II acromion. No undersurface spurring. The subacromial space is preserved. Remainder of the soft tissue and bony structures appear normal. RIGHT SHOULDER: Normal bone mineralization. No fracture, dislocation, or suspicious bone lesion. Normal alignment. The glenohumeral joint is normal. The AC joint is normal. There is a type II acromion. No undersurface spurring. The subacromial space is preserved. Remainder of the soft tissue and bony structures appear normal. XR/XR Shoulder Edi min 2V IMPRESSION: Normal bilateral shoulders. Electronically signed by: Saurav Brink MD 11/15/2025 11:12 AM [facility]
--- OUTSIDE RECORDS SUMMARY | 2025-11-15 13:26 | XMS_ITS | Clinical Summary ---
Author Organization [employer] [facility] Address [address] [place] [address] Care Team Providers Care Product Marketing Director Name Role Phone Unavailable Primary Care Provider [...] Diagnosed Date Known health problems: none 05/29/2025 Social History Tobacco Use Types Packs/Day Years [...] of 2) 2011 COVID-19 Vaccine ( - 2024-2 6 season) 2025 Influenza Vaccine (#1) 2025 Dental [...] Procedure Name Priority Date/Time Associated Diagnosis Comments PROPHYLAXIS - ADULT Routine 06/14/2025 2 :00 PM EDT INTRAORAL - COMPLETE SERIES OF RADIOGRAPHIC IMAGES Routine 05/29/2025 1:30 PM EDT PERIODIC ORAL EVALUATION - ESTABLISHED PATIENT Routine 05/29/2025 1:30 PM EDT from Last 3 Months or Most Recently Relevant to Health Maintenance [facility] ST[facility]
== END 2025-11-15 10:37 | disposition home or self-care (01) ==
LOC: HO.XRAY 10:36
PROVIDERS: PCP Internal Medicine; Visit Provider Nurse Practitioner Family
DX: M25.511 Pain in right shoulder (principal)
CPT/HCPCS: 73030

== ENCOUNTER → 2025-11-15 10:41 | Outpatient (BNV) | payer OTHER, SELFPAY | PROVIDERS: PCP Internal Medicine; Visit Provider Radiology Diagnostic Radiology | DX: M25.511 Pain in right shoulder (principal) | CPT/HCPCS: 73030 ==

== ENCOUNTER 2025-11-16 10:34 | Outpatient (AMB) | payer OTHER, SELFPAY ==
--- NOTE | 2025-11-16 10:47 | MHC.OFFVIS ---
Vital Signs 11/16/25 10:49 Height 5 ft 8 in Weight 123 lb BMI 18.7 BP 108/66 Blood Pressure Location Lt brachial Position Sitting Respiration 16 Pulse 76 Pulse Source Pulse Oximeter Pulse Oximetry (%) 98 Oxygen Delivery Method Room Air Intake Visit Reasons: Left sciatic nerve block Bicycle Repairman Required: No Local Superintendent: Local Superintendent Present Accompanied by: Asad Conklin Allergies codeine Allergy (Intermediate, Verified 11/19/25 09:12) Rash duloxetine (From Cymbalta) Allergy (Intermediate, Verified 11/19/25 09:12) Rash erythromycin base Allergy (Intermediate, Verified 11/19/25 09:12) Rash gabapentin (From Neurontin) Allergy (Intermediate, Verified 11/19/25 09:12) Palpitations Medication List - Last Reconciled 11/16/25 by Dominga Lechuga LPN albuterol sulfate 90 mcg/actuation 2 puffs inhalation Q6H PRN dicyclomine 10 mg PO BID dupilumab (Dupixent) mg subcut Q2W epinephrine 1 mg IM DAILY PRN fluticasone furoate-vilanterol 200-25 mcg/dose (Breo Ellipta) 1 inh inhalation DAILY fluticasone propionate 50 mcg/actuation sprays intranasal ipratropium bromide 2 sprays intranasal BID linaclotide (Linzess) 290 mcg PO QAM 30 days mirabegron ER (Myrbetriq) 50 mg PO DAILY naproxen 500 mg PO BID omeprazole 40 mg PO DAILY sennosides (Senna Laxative) 17.2 mg (2 x 8.6 mg) PO BEDTIME simethicone 180 mg PO QID 30 days tamsulosin (Flomax) 0.4 mg PO BEDTIME HPI HPI Left sciatic nerve block: Details: History of Present Illness The patient is a 65 year old male presenting for management of chronic ankle pain. He sustained an ankle injury in 2013 in [place] when his foot went through a collapsed floor. Subsequently, he underwent three surgeries in three consecutive years. He complains of ongoing pain inside the ankle, pain with motion, and numbness that extends down to the sole of his foot. The patient notes associated muscle wasting in the affected leg. The pain and associated symptoms cause difficulty with walking and balance. He has been in physical therapy for his leg since 2013. The patient also reports back pain. An MRI for his back was previously ordered but denied, with the patient's understanding that more information was requested. He has not had physical therapy specifically for his back recently. A prior neurodiagnostic report raised concern for spinal stenosis, but a review of a recent CT scan of the abdomen and pelvis, performed for kidney stones, showed arthritis but no significant spinal stenosis. Pain Description - Onset: The patient's pain began after an ankle injury in 2013. - Location: The primary pain is in the ankle, with secondary complaints of back pain. - Quality: The patient describes pain inside the ankle and pain with movement. - Associated Symptoms: The patient experiences numbness in the leg down to the sole of the foot. - Functional Impact: The pain causes difficulty with walking and affects his balance. Physical Exam - Musculoskeletal: Muscle wasting noted in the leg. Ankle range of motion is limited. - Neurological: Post-procedure, patient reports paresthesia including tingling and a cold sensation in the distribution of his usual pain. Results - CT Abdomen/Pelvis (from earlier this year for kidney stones): Review of back images shows arthritis but no significant spinal stenosis. - Prior Neurodiagnostic Report: Noted concern for spinal stenosis. Pain Management: - Activities of Daily Living: The patient's pain causes difficulty with walking and balance. - Analgesia: The current plan involves procedural interventions, including a sciatic nerve block performed today and consideration of a nerve stimulator trial. Procedure - Procedure: Left Sciatic Nerve Block - Consent: Informed consent was obtained. - Description: The patient was placed in a right lateral decubitus position. - The left popliteal fossa was prepped with chloroprep. - Using ultrasound, the peroneal and tibial components of the sciatic nerve were identified. - A 21-gauge needle was advanced under ultrasound guidance to the nerve targets, and 5 cc of 0.25% ropivacaine was injected surrounding the tibial and peroneal nerve. Image saved. - Post-Procedure: The patient reported paresthesia in the distribution of his usual pain. 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, Housing: House Are you a primary healthcare network pricing consultant to a significant other at home: No Do you presently have visiting nurse or other home services: No Patient Tobacco Use Status: Never used Tobacco e-Cigarette/Vaping Use: Never Used service: No Current occupational status: employed 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 Cognitive needs: No Hearing needs: No Vision needs: No Physical Exam Vital Signs: Last Vital Signs Pulse 76 11/16/25 10:49 Resp 16 11/16/25 10:49 BP 108/66 11/16/25 10:49 Pulse Ox 98 11/16/25 10:49 Oxygen Delivery Method Room Air 11/16/25 10:49 BMI result Body Mass Index 18.7 Assessment & Plan Assessment & Plan (1) Lumbar spondylosis: Code(s): M47.816 - Spondylosis without myelopathy or radiculopathy, lumbar region Category: Medical (2) Left ankle pain: Comment: s/p 3 surgeries in [place] last 2020, chronic left ankle pain for 13 years intolerant to gabapentin and duloxetine Code(s): M25.572 - Pain in left ankle and joints of left foot Category: Medical (3) CRPS (complex regional pain syndrome type I): Code(s): G90.50 - Complex regional pain syndrome I, unspecified Category: Medical Plan Plan Patient was informed and verbally consented to the use of an ambient scribe for clinic note documentation during this visit. 1. Chronic Left Ankle Pain - The patient's chronic ankle pain is likely due to nerve injury at the ankle following multiple surgeries. - A diagnostic left sciatic nerve block was performed with 5 cc of 0.25% ropivacaine to block the pain signal and assess for relief. - This procedure will help determine if a nerve stimulator would be a beneficial treatment option, although it may not be a long-term solution for this chronic issue. 2. Axial Low Back Pain Secondary To Lumbar Spondylosis - A review of a recent CT scan reveals lumbar spondylosis (arthritis) but no significant spinal stenosis; the back pain is likely due to facet arthritis. - Physical therapy will be ordered for the low back pain. - An MRI of the back is not considered urgent at this time. - If physical therapy does not provide relief after two to three months, an MRI will be easier to obtain and can be reconsidered. - Injections for the back arthritis are also a future possibility if the pain persists after physical therapy. Discussion Notes I discussed with the patient that his chronic ankle pain is most likely due to nerve injury from his previous surgeries. I explained that we would perform a nerve block injection today to see if targeting the nerves upstream from the ankle provides pain relief. I informed him that this procedure serves as a diagnostic step to evaluate if he would be a candidate for a nerve stimulator, though I cautioned that it might not be a long-term solution given the chronicity of his problem. I advised him he might experience temporary heaviness and numbness in his hip, which should resolve by tomorrow. Regarding his back pain, I explained that his recent CT scan showed arthritis but not significant spinal stenosis. I recommended starting physical therapy for his back, as it is most likely to be helpful and would also facilitate insurance approval for a future MRI if needed. The patient expressed understanding of the plan. Patient Instructions - You may feel some heaviness and numbness in your hip and leg today from the injection; this is expected and should wear off by tomorrow. - Pay attention to see if the injection helps your ankle pain. - An order has been placed for physical therapy for your low back pain. This should help with your pain. - If your back does not improve after 2-3 months of physical therapy, we can consider getting an MRI. - We will see you back in follow-up to check on your ankle and back pain. Orders: Orders PT Evaluation and Treatment 11/16/25 M47.816 - Spondylosis without myelopathy or radiculopathy, lumbar region Coding Level of Care Code Procedure Only Diagnoses Lumbar spondylosis M47.816 Left ankle pain M25.572 CRPS (complex regional pain syndrome type I) G90.50
[2025-11-16 10:49] VITALS: BP 108/66; PULSE 76; RESP 16; O2SAT 98; BMI 18.7
--- OUTSIDE RECORDS SUMMARY | 2025-11-16 12:15 | XMS_ITS | Clinical Summary ---
Author Organization [employer] [facility] Address [address] [place] [address] Care Team Providers Care Slumber Room Attendant Name Role Phone Unavailable Primary Care Provider [...] Most Recently Relevant to Health Maintenance [facility] STAND ADULT
== END 2025-11-16 11:14 | disposition home or self-care (01) ==
LOC: HO.PMC 10:35
PROVIDERS: PCP Internal Medicine; Visit Provider Internal Medicine
DX: M47.816 Spondylosis without myelopathy or radiculopathy, lumbar region (principal); M25.572 Pain in left ankle and joints of left foot; G90.50 Complex regional pain syndrome I, unspecified
CPT/HCPCS: 64445

== ENCOUNTER → 2025-11-16 10:34 | Outpatient (BNVA) | payer OTHER, SELFPAY | PROVIDERS: PCP Internal Medicine; Visit Provider Internal Medicine | DX: M47.816 Spondylosis without myelopathy or radiculopathy, lumbar region (principal); G89.29 Other chronic pain | CPT/HCPCS: 64445; J2795 ==

== ENCOUNTER 2025-11-19 09:06 | Outpatient (AMB) | payer OTHER, SELFPAY ==
[2025-11-19 09:11] VITALS: BP 111/73; PULSE 73; RESP 16; O2SAT 99; BMI 18.7
--- NOTE | 2025-11-19 09:11 | MHC.OFFVIS ---
Vital Signs 11/19/25 09:11 Height 5 ft 8 in Weight 123 lb BMI 18.7 BP 111/73 Blood Pressure Location Lt brachial Position Sitting Respiration 16 Pulse 73 Pulse Source Pulse Oximeter Pulse Oximetry (%) 99 Oxygen Delivery Method Room Air Intake Visit Reasons: S/P Left sciatic nerve block Apartment Rental Agent Required: No Accompanied by: Grand Child Allergies codeine Allergy (Intermediate, Verified 11/19/25 09:12) Rash duloxetine (From Cymbalta) Allergy (Intermediate, Verified 11/19/25 09:12) Rash erythromycin base Allergy (Intermediate, Verified 11/19/25 09:12) Rash gabapentin (From Neurontin) Allergy (Intermediate, Verified 11/19/25 09:12) Palpitations Medication List - Last Reconciled 11/19/25 by Dominga Lechuga LPN albuterol sulfate 90 mcg/actuation 2 puffs inhalation Q6H PRN dicyclomine 10 mg PO BID dupilumab (Dupixent) mg subcut Q2W epinephrine 1 mg IM DAILY PRN fluticasone furoate-vilanterol 200-25 mcg/dose (Breo Ellipta) 1 inh inhalation DAILY fluticasone propionate 50 mcg/actuation sprays intranasal ipratropium bromide 2 sprays intranasal BID linaclotide (Linzess) 290 mcg PO QAM 30 days mirabegron ER (Myrbetriq) 50 mg PO DAILY naproxen 500 mg PO BID omeprazole 40 mg PO DAILY sennosides (Senna Laxative) 17.2 mg (2 x 8.6 mg) PO BEDTIME simethicone 180 mg PO QID 30 days tamsulosin (Flomax) 0.4 mg PO BEDTIME HPI HPI S/P Left sciatic nerve block: Details: History of Present Illness The patient is a 65 year old male presenting for follow-up of foot pain after undergoing a diagnostic left sciatic nerve block. He reports he experienced numbness and complete pain relief for approximately one to two days following the procedure, after which the pain returned. The patient currently experiences pain in both feet and ankles. He has a history of foot surgery. He notes a loss of sensation in his feet but does not specifically feel hot or cold sensations. He reports intermittent swelling in his foot, which is associated with increased pain. His pain limits his range of motion and ability to exercise. His condition is identified as left foot CRPS that has not been responsive to conservative management. Pain Description - Location: Pain is located in both feet and ankles. - Associated symptoms: The patient reports intermittent swelling, which makes the pain worse, and a loss of sensation. - Relieving factors: A recent nerve block provided complete pain relief for one to two days. - Interference with function: The pain limits his motion and ability to exercise. Physical Exam - Appears afebrile. - Alert and oriented. - Mood and affect appropriate. - Follows and participates in conversation appropriately. - Respiratory effort is unlabored. - Left medial/lateral/dorsal foot and ankle scars - Left calf muscle wasting Results - Diagnostic left sciatic nerve block: The patient experienced excellent relief for two days. Pain Management: - Analgesia: The patient received a diagnostic nerve block that provided 1-2 days of complete pain relief. - Activities of Daily Living: The patient's pain limits his motion and ability to exercise. 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, Housing: House Are you a primary critical care transport nurse to a significant other at home: No Do you presently have visiting nurse or other home services: No Patient Tobacco Use Status: Never used Tobacco e-Cigarette/Vaping Use: Never Used service: No Current occupational status: employed 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 Cognitive needs: No Hearing needs: No Vision needs: No Physical Exam Vital Signs: Last Vital Signs Pulse 73 11/19/25 09:11 Resp 16 11/19/25 09:11 BP 111/73 11/19/25 09:11 Pulse Ox 99 11/19/25 09:11 Oxygen Delivery Method Room Air 11/19/25 09:11 BMI result Body Mass Index 18.7 Assessment & Plan Assessment & Plan (1) Pain in left ankle and joints of left foot: Code(s): M25.572 - Pain in left ankle and joints of left foot Category: Medical (2) CRPS (complex regional pain syndrome type I): Code(s): G90.50 - Complex regional pain syndrome I, unspecified Category: Medical Plan Plan Patient was informed and verbally consented to the use of an ambient scribe for clinic note documentation during this visit. 1. Complex Regional Pain Syndrome I Of Left Lower Limb - The patient had a positive diagnostic sciatic nerve block with two days of excellent pain relief. - A temporary nerve stimulator was discussed as an option, but insurance coverage is uncertain and will be investigated. - If the stimulator is not covered, the next step will be to trial a left lumbar sympathetic block. - This injection in the back will be attempted to see if it provides longer-lasting relief before considering further injections in the leg. Discussion Notes I reviewed the results of the patient's recent diagnostic left sciatic nerve block. He reported excellent relief with numbness and resolution of pain for about two days, which is a positive result. We discussed treatment options, including a spinal cord stimulator, and I informed him that we would need to verify insurance coverage. I proposed that if the stimulator is not an option, we could proceed with a left lumbar sympathetic block, an injection administered in his back, to see if it provides longer relief. The patient understood the plan and agreed to try the back injection before considering more injections in his leg. Patient Instructions - We will check with your insurance company to see if a nerve stimulator is a covered benefit for you. - If the stimulator is not covered, we will try a different kind of injection in your lower back to help with your foot pain. - We hope this new injection will give you longer pain relief. - We will try the injection in your back first before deciding on any more injections in your leg. Coding Level of Care Code Est Pt Level 3 (41019) Diagnoses Pain in left ankle and joints of left foot M25.572 CRPS (complex regional pain syndrome type I) G90.50
--- OUTSIDE RECORDS SUMMARY | 2025-11-19 10:00 | XMS_ITS | Clinical Summary ---
Author Organization [employer] [facility] Address [address] [place] [address] Care Team Providers Care Drier Operator Head Name Role Phone Unavailable Primary Care [...] Most Recently Relevant to Health Maintenance [facility] ST[facility]
== END 2025-11-19 09:31 | disposition home or self-care (01) ==
LOC: HO.PMC 09:07
PROVIDERS: PCP Internal Medicine; Visit Provider Internal Medicine
DX: M25.572 Pain in left ankle and joints of left foot (principal); G90.522 Complex regional pain syndrome I of left lower limb
CPT/HCPCS: 99213

== ENCOUNTER → 2025-11-19 09:06 | Outpatient (BNVA) | payer OTHER, SELFPAY | PROVIDERS: PCP Internal Medicine; Visit Provider Internal Medicine | DX: M25.572 Pain in left ankle and joints of left foot (principal); G90.522 Complex regional pain syndrome I of left lower limb | CPT/HCPCS: 99212 ==

== ENCOUNTER 2025-11-21 10:55 | Outpatient (AMB) | payer OTHER, SELFPAY ==
--- NOTE | 2025-11-21 10:59 | A.OFFVIS_ITS ---
Intake Visit Reasons: Post OP/PVR/microtesticular denervation(set) Intake Note: Reason for Visit: Post OP 10/15/25 Micro Testicular Denervation Urology Meds: Tamsulosin, Myrbetriq, Blood Thinners: None Labs: PSA- 2.24 (08/17/25) Imaging: None Last PVR: 0ML Hardware Engineer Required: No Accompanied by: Self / Same As Patient Allergies codeine Allergy (Intermediate, Verified 11/21/25 11:03) Rash duloxetine (From Cymbalta) Allergy (Intermediate, Verified 11/21/25 11:03) Rash erythromycin base Allergy (Intermediate, Verified 11/21/25 11:03) Rash gabapentin (From Neurontin) Allergy (Intermediate, Verified 11/21/25 11:03) Palpitations HPI Comments Details: Postprocedure review - 6 weeks Significant improvement in testicular pain Has some incisional discomfort Reassurance provided 10/23 left microscopic inguinal denervation 08/23 here for evaluation left testicular pain. Prior varicocelectomy. Responded well to lidocaine block in December 2024 Would suggest microscopic denervation 85% success rate in setting of response to cord block 07/27/25--Anamaria is a 64-year-old male who is here for evaluation due to urinary frequency and urgency. He is prescribed tamsulosin and Myrbetriq to 50 mg. Reviewed PSA 06/09/2025 2.06 ng/mL. Urinalysis is negative. Bladder scan PVR 3 mL. He states that he is up 1-2 times at night to urinate. During the day he still has a few episodes urgency. He does admit he is able to wait at least 3 hours comfortably without a strong urge. I have encouraged to retrain and have timed voiding every 3-4 hours. The patient complains of right-sided pain. I have reviewed the renal ultrasound the right kidney is normal left kidney has a small cyst with mild dilatation of the ureter. I have discussed that the pain on the right side is not related. The patient also complains of left testicular pain, when he was evaluated in December Dr. Sherwood gave a lidocaine injection he states that was helpful. We will have him follow-up with Dr. Sherwood regarding this concern. Continued PSA screening and we will continue Myrbetriq and tamsulosin telehealth follow-up in 1 year with PSA. 01/18/2025-- Anamaria is a 64-year-old male who is here for evaluation due to urinary frequency and urgency. He was initially evaluated on 06/26/2024 and prescribed Myrbetriq 25 mg and tamsulosin 0.4 mg which he takes both medications in the evening. He states there has been some improvement in the urinary symptoms but he has started I urgency. I will increase the Myrbetriq to 50 mg daily. I have reviewed CT imaging which notes mild dilatation the ureters right greater than left, findings suggestive of anatomic variant no evidence of obstruction observed. The patient complains of right-sided pain and I have discussed that it is likely musculoskeletal related rather than related to the right kidney. The patient complains of persistent left groin pain history of varicocelectomy. Lidocaine cord block performed by Dr. Sherwood 1% lidocaine plain 10 mL. Will have nursing staff follow-up with patient tomorrow to discuss any change in groin pain symptoms after lidocaine block. 06/26/24--Anamaria is a 64-year-old male who is here for evaluation due to urinary frequency and urgency. 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 The patient states that he he has had right-sided pain and some constipation. He was seen by GI also. He states he had an ultrasound done and was told that on the right side the ureters were dilated. I have discussed further evaluation with ultrasound retroperitoneum. Will empirically trial Myrbetriq 25 mg daily and tamsulosin 0.4 mg at bedtime. 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, Housing: House Are you a primary healthcare advisory services manager to a significant other at home: No Do you presently have visiting nurse or other home services: No Patient Tobacco Use Status: Never used Tobacco e-Cigarette/Vaping Use: Never Used service: No Current occupational status: employed 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 Cognitive needs: No Hearing needs: No Vision needs: No Review of Systems Const Denies chills and Denies fever(s) Card Reports no additional complaints and Denies syncope Resp Denies cough GI Denies abdominal pain and Denies heartburn Reports as per HPI and Denies change in libido Neuro Denies syncope Psych Denies change in libido Endo Denies change in libido Physical Exam Const General: cooperative, healthy appearing, comfortable and no acute distress Orientation/consciousness: patient oriented x3 HEENT Face and sinus: Yes normal facial exam Mouth: moist mucous membranes Neck Neck: Yes normal visual inspection, Yes full ROM and Yes trachea midline Chest Chest palpation & inspection: normal inspection of the chest Resp Effort & Inspection: normal respiratory effort, able to speak in complete sentences and no respiratory distress GI Inspection: Yes normal to inspection Back/Spine/Pelvis Cervical Spine: normal cervical lordosis Thoracic/Lumbar Spine: thoracic and lumbar spine normal to inspection Skin General skin exam: no rashes or lesions noted Neuro General: patient oriented x3, gait normal, tone normal and moves all extremities Extrem General: Yes normal to inspection and Yes capillary refill normal Assessment & Plan Assessment & Plan (1) Nocturia: Code(s): R35.1 - Nocturia Category: Medical (2) Left testicular pain: Code(s): N50.812 - Left testicular pain Category: Medical (3) Urgency-frequency syndrome: Comment: established with [facility] urology Code(s): N32.81 - Overactive bladder Category: Medical Plan Six-month follow-up for urinary urgency Patient Instructions: This note is constructed using voice recognition software. While every effort has been made to ensure accuracy supervisory examiner errors may have been included. Imaging studies, laboratory and physical exam results were discussed and reviewed in detail. No major barriers to patient understanding were identified. An opportunity to ask questions regarding the treatment plan was provided. All questions were answered. The patient expressed understanding and agreement with the above treatment plan. The patient is aware they should contact our office by phone for worsening of their current condition or the appearance of new urologic symptoms. Compliance is encouraged with any medications and followup testing that is ordered. It is a privilege to participate in the urologic care of your patient. If you have any questions or concerns regarding treatment for the above conditions, or other urologic issues, please do not hesitate to contact me. The office telephone contact is [phone]. Sincerely, Dr Casper Sherwood MD, [facility] - Urology Compassionate Specialist Care for the Genitourinary System Coding Level of Care Code Global (25423) Diagnoses Nocturia R35.1 Left testicular pain N50.812 Urgency-frequency syndrome N32.81
--- OUTSIDE RECORDS SUMMARY | 2025-11-21 11:00 | XMS_ITS | Clinical Summary ---
Author Organization [email or web address] [facility] Address [address] [place] [address] Care Team Providers Care Supervisor Type Photography Name Role Phone Unavailable Primary Care Provider [...] Most Recently Relevant to Health Maintenance Insurance [facility] STAND ADULT
== END 2025-11-21 11:24 | disposition home or self-care (01) ==
LOC: HO.HUSH 10:55
PROVIDERS: PCP Internal Medicine; Visit Provider Urology
DX: R35.1 Nocturia (principal); N50.812 Left testicular pain; N32.81 Overactive bladder
CPT/HCPCS: 99024

== ENCOUNTER → 2025-11-21 10:55 | Outpatient (BNVA) | payer OTHER, SELFPAY | PROVIDERS: PCP Internal Medicine; Visit Provider Urology | DX: Z48.816 Encounter for surgical aftercare following surgery on the genitourinary system (principal); N50.812 Left testicular pain; N32.81 Overactive bladder; R35.1 Nocturia | CPT/HCPCS: 99212 ==

== ENCOUNTER 2025-11-28 11:46 | Outpatient (REF) | payer OTHER, SELFPAY ==
--- OUTSIDE RECORDS SUMMARY | 2025-11-28 13:31 | XMS_ITS | Clinical Summary ---
Author Organization [employer] [facility] Address [address] [place] [address] Care Team Providers Care Transportation Manager Name Role Phone Unavailable Primary Care Provider [...] Most Recently Relevant to Health Maintenance Insurance [facility]
[2025-11-28 14:08] LABS: Appearance Urine Clear; Glucose Urine UA Negative (Negative); PH 8.0 (5.0-9.0); Specific Gravity - Urine 1.010 (1.005-1.025)
== END 2025-11-28 11:47 | disposition home or self-care (01) ==
LOC: HO.HMGCLDS 11:46
PROVIDERS: PCP Internal Medicine; Visit Provider Urology
DX: R39.15 Urgency of urination (principal); Z87.898 Personal history of other specified conditions
CPT/HCPCS: 81001; 87086